=== PATIENT | female | born 1975 | race Caucasian/White ===

== ENCOUNTER → 2016-09-25 | Outpatient (CLI) | payer OTHER ==
[~2016-09-25] MED LIST: ACET50TA PO; GLYB25TA PO; IBUP80TA PO; MACR100C3 PO; MOTR200T44 PO; PRENTAB9 PO; STUACAP PO; TYLE167L PO; VIST25CA PO; [UNRECOGNIZED DRUG - OTHER] PO
== END | disposition home or self-care (01) ==
LOC: M LAB 11:30
PROVIDERS: ATTEND Neurological Surgery
DX: E66.9 Obesity, unspecified (principal)

== ENCOUNTER → 2016-10-22 | Outpatient (CLI) | payer OTHER ==
--- NOTE | 2016-10-22 15:51 | REP ---
CERVICAL SPINE, SEVEN VIEW: HISTORY: Spondylosis. COMPARISON: 12/12/2012. There is no acute fracture or subluxation. The C5-6 intervertebral disc is decreased in height consistent with disc degeneration. Osteophytes are present on C5 and 6. The neural foramina are patent. IMPRESSION: Degenerative change as described above. Signed by Shadi Montaño MD 10/22/2016 03:52 P
--- NOTE | 2016-10-22 15:53 | REP ---
LUMBAR SPINE, SEVEN VIEWS: HISTORY: Spondylosis. COMPARISON: 07/08/2016. There is no acute fracture or subluxation. The L4-5 intervertebral disc is decreased in height consistent with disc degeneration. Osteophytes are present on L3 and 4. The facet joints are normal in appearance. IMPRESSION: Degenerative change as described above. Signed by Shadi Montaño MD 10/22/2016 04:05 P
== END | disposition home or self-care (01) ==
LOC: M RAD 14:47
PROVIDERS: ATTEND Neurological Surgery
DX: M47.892 Other spondylosis, cervical region (principal); M47.896 Other spondylosis, lumbar region; M50.322 Other cervical disc degeneration at C5-C6 level; M51.36 Other intervertebral disc degeneration, lumbar region

== ENCOUNTER → 2016-12-23 | Outpatient (CLI) | payer OTHER ==
--- NOTE | 2017-01-04 00:57 | ECWPNPC ---
PATIENT NAME: HYUN SOSA : 1975 GENDER: FEMALE VISIT DATE: 12/23/2016 DISCHARGE DATE: 12/23/16 1244 VISIT LOCKED DATE TIME: PHYSICIAN: JANNA JACOBSON RESOURCE: JANNA JACOBSON HISTORY OF PRESENT ILLNESS FALL RISK SCREENINY/O FEMALE REFERRED BY DR. RODRIGUEZ FOR EVALUATION OF CHRONIC LOW BACK PAIN.PAIN BEGAN INTERMITTENT LOW BACK PAIN IN 2013 THAT DEVELOPED INTO MORE CONSTANT PAIN WITH LEFT LATERAL LEG PAIN ONE YEAR LATTER.HAS HAD SEVERE INCREASE IN PAIN AFTER TWISTING ON TOILET 6 MONTHS AGO.RATING PAIN VAS 7/10.PAIN IS AGGREVATED BY WALKING,LIFTING AND SITTING.STATES NOTHING RELIEVES PAIN.DENIES BOWEL OR BLADDER INCONTINENCE.NO RECENT FEVER ILLNESS OR WEIGHT LOSS.HAS ATTENDED PT WITH MINIMAL RELIEF.USING ACETAMINOPHEN IN HIGH DOSES THAT IS NOT HELPING. SCREENING :NO FALLS IN THE PAST YEAR PAIN SCREENING: PATIENT HAS A COMPLAINT OF ACUTE OR CHRONIC PAIN :YES CURRENT MEDICATIONS TAKING TYLENOL ARTHRITIS PAIN 2 TABS ORALLY FOUR TIMES DAILY NEEDED DISCONTINUED AMOXICILLIN 500 MG CAPSULE 2 CAPSULES ORALLY ONCE A DAY (FIRST DOSE GIVEN IN CLINIC 12/15/15) MEDICATION LIST REVIEWED AND RECONCILED WITH THE PATIENT PAST MEDICAL HISTORY ARTHRITIS CHRONIC PAIN FROM NECK TO TAIL BONE ALLERGIES LATEX (FOR ALLERGY USE ONLY): RASH, HIVES: ALLERGY SURGICAL HISTORY DENIES PAST SURGICAL HISTORY FAMILY HISTORY FATHER: 48 YRS, DIAGNOSED WITH HEART DISEASE MOTHER: ALIVE 57 YRS, DIAGNOSED WITH DIABETES, OTHER SIBLINGS: ALIVE, DIAGNOSED WITH HEART DISEASE, OTHER 3 SON(S) , 1 DAUGHTER(S) - HEALTHY. FATHER -MIMOTHER- OSTEO ARTHRITIS, OSTEOPOROSIS, ASHTMA, BETO, H-PYLORIE,MIGRAINES1 BROTHER--LEUKEMIA,HEART PROBLEMS(HAS AICD), 2 BACK [id number] BROTHER--DEAF LEFT EAR, HEART MURMUR. BETO. SOCIAL HISTORY GENERAL: TOBACCO USE ARE YOU A:NONSMOKER ALCOHOL SCREENING POINTS1 INTERPRETATIONNEGATIVE RECREATIONAL DRUG USE DRUG USE?NO CAFFEINE CAFFEINE USE?YES HOW OFTEN AND HOW MUCH? 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 DIET: REGULAR. EXERCISE: STRETCHES BID. MARITAL STATUS: . OTHERS AT HOME: CHILDREN. PETS: NONE. YAZIDISM [id number] ANABAPTISM LANGUAGE LANGUAGES SPOKEN:HUNGARIAN EDUCATION LEVEL OF EDUCATION:FINISHED HIGH SCHOOL SOME COLLEGE LEARNING BARRIERS / SPECIAL NEEDS BARRIERS TO LEARNING?NO HEARING IMPAIRED?NO VISION IMPAIRED?YES :CORRECTIVE LENSES COGNITIVELY IMPAIRED?NO READINESS TO LEARN?YES LEARNING PREFERENCES?YES :DEMONSTRATION/VERBAL INSTRUCTION EMOTIONAL BARRIERS?NO SPECIAL DEVICES?NO RAILROAD TRACK REPAIR SUPERVISOR NEEDED?NO PAIN CLINIC PFS, CLERGY, PUBLIC HEALTH REFERRALS PFS REFERRAL NEEDED?NO CLERGY REFERRAL NEEDED?NO PUBLIC HEALTH REFERRAL NEEDED?NO ADVANCED DIRECTIVES HEALTH CARE PROXY?NO WOULD YOU LIKE MORE INFORMATION?NO DO YOU HAVE A DNR?NO WOULD YOU LIKE MORE INFORMATION?NO LIVING WILL?NO WOULD YOU LIKE MORE INFORMATION?NO POWER OF SKOOG MACHINE OPERATOR?NO WOULD YOU LIKE MORE INFORMATION?NO COHABITATING: EMOTIONAL BY . PLAN OF CARE FOR PAIN CENTER REVIEWED WITH PATIENT AND SHE VERBALIZED UNDERSTANDING. HOSPITALIZATION/MAJOR DIAGNOSTIC PROCEDURE MILD CONCUSSION AGE 10 WHOOPING COUGH AND PNEUMONIA BABY CHILD 1993,1996,2013. 2014 REVIEW OF SYSTEMS CONSTITUTIONAL: RECENT ILLNESS DENIES . ANY CHANGE IN YOUR MEDICAL CONDITION? NO . CHILLS NO . FEVER NO, DENIES . WEIGHT LOSS DENIES . INFECTION: DO YOU HAVE NEW INFECTIONS? NO . DO YOU HAVE HISTORY OF MRSA? NO . MUSCULOSKELETAL: ANY NEW PATTERNS OF PAIN OR NUMBNESS? NO . SYTEMIC LUPUS NO . JOINT PAIN DENIES . JOINT STIFFNESS DENIES . GASTROENTEROLOGY: BOWEL INCONTINENCE DENIES . ANY NEW CHANGE IN BOWEL CONTROL? NO . BARRETTS ESOPHAGUS NO . CIRRHOSIS NO . HEPATITIS NO . LIVER FAILURE NO . ACID REFLUX NO . BLOOD IN STOOL DENIES . UNEXPLAINED WEIGHT LOSS NO . GENITOURINARY: ANY NEW CHANGE IN BLADDER CONTROL? NO . IS THERE A CHANCE YOU COULD BE ? NO . HEMATOLOGY/LYMPH: DENIES . BLEEDING DISORDER DENIES . DO YOU TAKE ANY BLOOD THINNERS? (FOR EXAMPLE- COUMADIN, PLAVIX, AGGRENOX, PLATEL, PRADAXA, OR XARELTO) NO . WHEN WAS YOUR LAST DOSE? DATE: TIME: . LOW PLATELET COUNT NO . SICKLE CELL DISEASE NO . VON WILLIEBRANDS NO . FACTOR V LEIDEN NO . THALLASEMIA NO . ANEMIA NO . EASY BRUISING NO . NEUROLOGY: HAVE YOU FALLEN IN THE PAST 6 MONTHS? NO . ANY NEW EXTREMITY NUMBNESS OR WEAKNESS? NO . HEAD INJURY YES, CONCUSSIOON A CHILD . DEMENTIA NO . CEREBRAL PALSY NO . MULTIPLE SCLEROSIS NO . DIZZINESS NO . HEADACHE NO, DENIES . SEIZURES DENIES . STROKES NO . VERTIGO NO . CARDIOLOGY: DO YOU HAVE A PACEMAKER OR DEFIBRILLATOR? NO . ANGINA NO . HEART ATTACK NO . HEART SURGERY NO . CONGESTIVE HEART FAILURE/FLUID OVERLOAD NO . CHEST PAIN NO, DENIES . HIGH BLOOD PRESSURE NO . IRREGULAR HEART BEAT NO . SHORTNESS OF BREATH DENIES . RESPIRATORY: HAVE YOU BEEN SICK IN THE PAST WEEK? NO . FEVER NO . FLU LIKE SYMPTOMS? NO . CPAP NO . BYPAP NO . ASTHMA YES, EXERCISED INDUCED . EMPHYSEMA NO . CHRONIC LUNG DISEASES NO . SHORTNESS OF BREATH ON EXERTION NO . COUGH NO, DENIES . SHORTNESS OF BREATH DENIES . SNORING YES,NEVER BEEN TESTED FOR BETO . INTEGUMENTARY: DO YOU HAVE ANY RASHES OR OPEN SORES? NO . ALLERGIC/IMMUNO: ARE YOU ALLERGIC TO SHELLFISH OR IV DYE? NO . ANY NEW ALLERGIES? NO . PSYCHIATRIC: DO YOU HAVE THOUGHTS OF HURTING YOURSELF OR SOMEONE ELSE? NO . ARE YOU ABUSED, NEGLECTED, OR IN AN UNSAFE ENVIRONMENT? NO . ENDOCRINOLOGY: THYROID DISEASE DENIES . ARE YOU DIABETIC? NO . DIABETES DENIES . THYROID DISORDER NO . OTHER: DO YOU NEED ANY PRESCRIPTIONS? NO . IF YES, PLEASE LIST: ____ . ANY NEW PROBLEMS WITH YOUR MEDICATIONS? NO . WHEN DID YOU LAST EAT? ____ . WHEN DID YOU LAST DRINK? ____ . WHAT DID YOU LAST DRINK? ____ . NAME OF PERSON DRIVING YOU HOME? ____ . DO YOU HAVE ANY OTHER QUESTIONS OR CONCERNS WANTS TO BE ABLE TO MOVE WITHOUT PAIN . HEENT: CHANGE IN VISION DENIES . LOSS OF HEARING DENIES . TROUBLE SWALLOWING DENIES . PSYCHOLOGY: ANXIETY DENIES . DEPRESSION DENIES . UROLOGY: URINARY INCONTINENCE DENIES . BLOOD IN URINE DENIES . REVIEWED BY: PROVIDER: JANNA LOPEZ . VITAL SIGNS WT 208.2 LBS, HT 67 IN, BMI 32.61 INDEX, BP 130/78 MM HG, HR 69 /MIN, RR 20 /MIN, TEMP 99.0 F, OXYGEN SAT % 95%, NA INITIALS AW 1111. EXAMINATION GENERAL EXAMINATION: HEENT:HEAD:, NORMOCEPHALIC, EYES:, EYES NORMAL, NOSE:, NOSE CLEAR, THROAT: NORMAL. LUNGS:LUNG SOUNDS ARE CLEAR. HEART:HEART RATE REGULAR. ABDOMEN:SOFT AND NOT TENDER, NON-DISTENDED. MUSCULOSKELETAL:*. LUMBAR SACRAL SPINEMUSCLE STRENGTH TESTING 5/5 BILATERAL, PALPATION: + FOR PAIN OVER L/S SPINE. + FOR PAIN OVER L/S PARASPINALS. THORACIC SPINENEGATIVE FOR PAIN WITH PALPATION OF THORACIC SPINE. NEGATIVE FOR PAIN WITH PALPATION OF THORACIC PARASPINAL. CERVICALNEGATIVE FOR PAIN WITH PALPATION OF CERVICAL SPINE. NEGATIVE FOR PAIN WITH PALPATION OF CERVICAL PARASPINALS. NEGATIVE FOR PAIN WITH PALPATION OF TRAPEZIUS BILAT. SKIN:NORMAL, NO RASH. NEUROLOGIC EXAM:ALERT AND ORIENTED X 3, DTRS 1-2+ IN ALL 4 EXTREMITIES, DENIES UPPER EXTREMETIES SENSORY LOSS, DENIES LOWER EXTREMETIES SENSORY LOSS. DIAGNOSTIC:MRI L/S [id number] NCS LOWER [id number] L5/S1-RADICULOPATHY.. ASSESSMENTS LUMBOSACRAL RADICULOPATHY - M54.17 (PRIMARY) PROTRUSION OF INTERVERTEBRAL DISC OF LUMBOSACRAL REGION - M51.27 TREATMENT LUMBOSACRAL RADICULOPATHY CAUDAL/LUMBAR EPIDURALJANNA JACOBSON 12/23/2016 12:38:29 PM > L4/5 LESI NOTES: LUMBAR EPIDURAL INJECTION: YOUR EXPERIENCE MATERIAL WAS PRINTED. OTHERS CLINICAL NOTES: ISTOP REGISTRY REVIEWED. PROCEDURE CODES FA211 ESTABILISHED PATIENT [facility] CHARGE DISPOSITION & COMMUNICATION FOLLOW UP 2WK POST (REASON: L4/5 LESI) ELECTRONICALLY SIGNED BY JESSICA BUSH ON 01/03/2017 AT 01:21 PM EDT DISCLAIMER : THIS IS A VISIT SUMMARY EXTRACTED FROM THE [employer] CHART. IT IS NOT A COPY OF THE [employer] PROGRESS NOTE. MTDLove
== END ==
LOC: M PAIN 11:20
PROVIDERS: ATTEND Nurse Practitioner Family
DX: G89.29 Other chronic pain (principal); M54.17 Radiculopathy, lumbosacral region; M51.27 Other intervertebral disc displacement, lumbosacral region; M19.90 Unspecified osteoarthritis, unspecified site; M54.2 Cervicalgia; Z79.899 Other long term (current) drug therapy; Z91.040 Latex allergy status

== ENCOUNTER → 2017-01-12 | Outpatient (REF) | payer OTHER | LOC: M LAB REF 17:00 | PROVIDERS: ATTEND Advanced Practice Midwife | DX: Z12.4 Encounter for screening for malignant neoplasm of cervix (principal) ==

== ENCOUNTER → 2017-01-18 | Outpatient (CLI) | payer OTHER ==
--- NOTE | 2017-01-18 11:11 | REPMRS ---
Patient History The patient states she had a clinical breast exam in January 2017. Family history of colorectal cancer in maternal grandfather at age 60, breast cancer in maternal aunt at age 50 or over, and unknown cancer in brother at age 7. Digital Mammo Screening Bilat: January 18, 2017 - Exam #: [id number] Bilateral CC and MLO view(s) were taken. Technologist: Mona Mccann, Technologist FINDINGS: There are scattered fibroglandular densities. There is no evidence of dominant mass, architectural distortion, or clustered microcalcification typical of malignancy. ASSESSMENT: BI-RADS/ACR category 1 mammogram. Negative. Recommendation Routine screening mammogram of both breasts in 1 year (for women over age 40). This mammogram was interpreted with the aid of an FDA-approved computer-aided dectection system. Electronically Signed By: Ubaldo Schultz MD 01/18/17 1111
== END ==
LOC: M RAD 10:40
PROVIDERS: ATTEND Advanced Practice Midwife
DX: Z12.31 Encounter for screening mammogram for malignant neoplasm of breast (principal); Z80.0 Family history of malignant neoplasm of digestive organs; Z80.3 Family history of malignant neoplasm of breast

== ENCOUNTER 2017-06-29 01:08 | Emergency (ER) | payer OTHER ==
[~2017-06-29] VITALS: Ht 170.2 cm; Wt 93.6 kg
[~2017-06-29 01:08] MED LIST changes: -MACR100C3 PO; +MACR100C43 PO
[2017-06-29] MEDS ORDERED: BACT800T5 PO (06:08)
[2017-06-29] MEDS ORDERED: PRED20TA PO (06:08)
[2017-06-29 06:28] VITALS: BP 131/78
== END 2017-06-29 06:30 | disposition home or self-care (01) ==
LOC: M ED 01:08
DX: S30.861A Insect bite (nonvenomous) of abdominal wall, initial encounter (principal); X58.XXXA Exposure to other specified factors, initial encounter; Y92.89 Other specified places as the place of occurrence of the external cause; Y93.89 Activity, other specified; Y99.8 Other external cause status; R10.9 Unspecified abdominal pain; J45.909 Unspecified asthma, uncomplicated; I10 Essential (primary) hypertension; Z91.040 Latex allergy status

== ENCOUNTER → 2019-04-18 | Outpatient (CLI) | payer OTHER ==
[~2019-04-18] MED LIST changes: -ACET50TA PO; +BACT800T5 PO; +MAPA500T2 PO; +PRED20TA PO; +[UNRECOGNIZED DRUG - CODE] PO; -[UNRECOGNIZED DRUG - OTHER] PO
--- NOTE | 2019-04-18 16:01 | REP ---
HISTORY: Acute low back pain this morning. COMPARISON: No priors. Five views of the lumbosacral spine show minimal posterior disc space narrowing L3-4 to L5-S1. Vertebral body height and alignment is within normal limits. Minimal anterior lipping seen involving L3 through L5 inclusive. Minimal hypertrophic degenerative facet joint changes are suspected at L5-S1 bilaterally. The pedicles are intact bilaterally. There is no spondylolysis or spondylolisthesis. IMPRESSION: Minimal chronic changes as described above. Electronically Signed by Dustin Starkey DO 04/19/2019 03:23 P
== END ==
LOC: M ADAMS 12:54
PROVIDERS: ATTEND Physician Assistant Medical
DX: M54.5 Low back pain (principal)

== ENCOUNTER → 2019-07-12 | Outpatient (REF) | payer OTHER ==
[2019-07-12 12:55] LABS: BASO # 0.1 10^3/uL (0.0-0.2); BASO % 0.8 % (0.0-1.0); EOS # 0.3 10^3/uL (0.0-0.5); EOS % 3.9 % (0.0-3.0); HEMATOCRIT 37.8 % (36.0-47.0); HEMOGLOBIN 12.1 g/dl (12.0-15.5); LYMPH # 1.9 10^3/uL (1.5-5.0); MEAN CORPUSCULAR HEMOGLOBIN 30.3 pg (27.0-33.0); MEAN CORPUSCULAR VOLUME 94.7 fl (80.0-96.0); MONO # 0.4 10^3/uL (0.0-0.8); MONO % 6.6 % (0.0-5.0); NEUTROPHILS # 3.8 10^3/uL (1.5-8.5); NEUTROPHILS % 59.2 % (36.0-66.0); PLATELET COUNT, AUTOMATED 411 10^3/uL (150-450); RED BLOOD COUNT 3.99 10^6/uL (4.00-5.40); WHITE BLOOD COUNT 6.4 10^3/uL (4.0-10.0)
[2019-07-12 13:10] LABS: ALBUMIN 3.6 GM/DL (3.2-5.2); ALT/SGPT 45 U/L (12-78); BILIRUBIN,TOTAL 0.9 MG/DL (0.2-1.0); BLOOD UREA NITROGEN 15 MG/DL (7-18); CARBON DIOXIDE LEVEL 32 MEQ/L (21-32); CHLORIDE LEVEL 107 MEQ/L (98-107); CHOLESTEROL LEVEL 161 MG/DL (<200); CHOLESTEROL RISK RATIO 4.236 (<5); CREATININE FOR GFR 0.66 MG/DL (0.55-1.30); FREE T4 1.01 NG/DL (0.76-1.46); GLOMERULAR FILTRATION RATE > 60.0 (>58); GLUCOSE, FASTING 97 MG/DL (70-100); HDL CHOLESTEROL 38 MG/DL (>40); LDL CHOLESTEROL 88 MG/DL (<100); NON-HDL-C 123 MG/DL; POTASSIUM SERUM 4.3 MEQ/L (3.5-5.1); SODIUM LEVEL 142 MEQ/L (136-145); TRIGLYCERIDES LEVEL 173 MG/DL (<150)
== END ==
LOC: M SFHCADAM 10:16
PROVIDERS: ATTEND Family Medicine
DX: Z00.00 Encounter for general adult medical examination without abnormal findings (principal)

== ENCOUNTER → 2019-07-27 | Outpatient (REF) | payer OTHER ==
[2019-07-27 13:20] LABS: HCG, SERUM QUALITATIVE NEGATIVE (NEGATIVE)
== END ==
LOC: M SFHCADAM 09:51
PROVIDERS: ATTEND Family Medicine
DX: Z71.1 Person with feared health complaint in whom no diagnosis is made (principal)

== ENCOUNTER → 2019-07-31 | Outpatient (CLI) | payer OTHER ==
--- NOTE | 2019-08-14 04:21 | ECWPNPC ---
PATIENT NAME: HYUN SOSA : 1975 GENDER: FEMALE VISIT DATE: 07/31/2019 DISCHARGE DATE: 07/31/19 1514 VISIT LOCKED DATE TIME: PHYSICIAN: JANNA JACOBSON RESOURCE: JANNA JACOBSON REASON FOR APPOINTMENT 1. LOW BACK HISTORY OF PRESENT ILLNESS HISTORY OF PRESENT ILLNESS: 43 Y/O FEMALE REFERRED BY [facility] FOR EVALUATION OF LOW BACK PAIN WITH RADIATION INTO GROIN AND ANTERIOR THIGHS.LONG HISTORY OF LBP WITH EPISODES OF EXACERBATIONS.STATES THAT SHE HAD SEVERE AGGREVATION IN LBP AND HEARING A POP AFTER A QUICK TWISTING,JARRING MOTION IN APRIL.SHE HAS BEEN UNABE TO WORK SINCE THEN.RATING PAIN VAS 7/10.DESCRIBES NUMBNESS AND TINGLING PAIN IN HER GROIN AND THIGHS.CURRENTL USING NAPROXEN AND TIZANIDINE AND ATTENDING PT WITH MINIMAL IMPROVEMENT SO SHE WAS REFERRED HERE TO CONSIDER INJECTION THERAPY. PAIN THE PATIENT DESCRIBES THE PAIN... FALL RISK SCREENING: SCREENING :NO FALLS REPORTED IN THE LAST YEAR CURRENT MEDICATIONS TAKING TIZANIDINE HCL 4 MG CAPSULE TAKE ONE CAPSULE BY MOUTH EVERY 8 HOURS NEEDED MAXIMUM DAILY DOSE 4 TABLETS ORAL TAKING NAPROXEN 375 MG TABLET TAKE ONE TABLET BY MOUTH TWICE A DAY AFTER MEALS ORAL DISCONTINUED TYLENOL ARTHRITIS PAIN 2 TABS ORALLY FOUR TIMES DAILY NEEDED DISCONTINUED MULTIVITAMIN ADULT - TABLET 1 TAB ORALLY DAILY PAST MEDICAL HISTORY ARTHRITIS CHRONIC PAIN FROM NECK TO TAIL BONE ALLERGIES LATEX (FOR ALLERGY USE ONLY): RASH, HIVES - ALLERGY SURGICAL HISTORY DENIES PAST SURGICAL HISTORY FAMILY HISTORY FATHER: 49 YRS, [place], DIAGNOSED WITH UNSPECIFIED HEART DISEASE MOTHER: ALIVE 57 YRS, FIBROMYALGIA, OSTEOARTHRITIS, OSTEOPOROSIS, DEPRESSION, ASTHMA, BETO, MIGRAINES, DIABETES, OTHER SPECIFIED CONDITIONS INFLUENCING HEALTH STATUS SIBLINGS: ALIVE, ONE BROTHER WITH LEUKEMIA, CHF WITH DEFIBRILLATOR; ANOTHER BROTHER WITH HEART MURMUR AND BETO, UNSPECIFIED HEART DISEASE, OTHER MALIGNANT NEOPLASM OF UNSPECIFIED SITE, OTHER SPECIFIED CONDITIONS INFLUENCING HEALTH STATUS 3 SON(S) , 1 DAUGHTER(S) - HEALTHY. SOCIAL HISTORY GENERAL: TOBACCO USE ARE YOU A:NONSMOKER HIV / HEP-C SCREENING HIV TEST OFFERED TO PATIENT:YES DATE OFFERED:07/11/2019 TEST ACCEPTED:NO HEP-C TEST OFFERED TO PATIENT:NO REASON:PATIENT DECLINED BROCHURE PROVIDED TO PATIENTNO OTHERS AT HOME: , CHILDREN, MIL, GRANDPARENTS; 3 CATS. EDUCATION LEVEL OF EDUCATION:FINISHED HIGH SCHOOL SOME COLLEGE DIET: REGULAR. LANGUAGE LANGUAGES SPOKEN:SWEDISH DOMESTIC VIOLENCE DO YOU FEEL SAFE IN YOUR ENVIRONMENT?YES RECREATIONAL DRUG USE DRUG USE?NO EXERCISE: STRETCHES BID. LEARNING BARRIERS / SPECIAL NEEDS BARRIERS TO LEARNING?NO HEARING IMPAIRED?NO VISION IMPAIRED?YES COGNITIVELY IMPAIRED?NO :CORRECTIVE LENSES READINESS TO LEARN?YES LEARNING PREFERENCES?YES :DEMONSTRATION/VERBAL INSTRUCTION EMOTIONAL BARRIERS?NO SPECIAL DEVICES?NO MANAGER HEART FAILURE NEEDED?NO PAIN CLINIC PFS, CLERGY, PUBLIC HEALTH REFERRALS PFS REFERRAL NEEDED?NO CLERGY REFERRAL NEEDED?NO PUBLIC HEALTH REFERRAL NEEDED?NO HAS THE PATIENT BEEN EDUCATED REGARDING HIS/HER PLAN OF CARE?YES HAS THE PATIENT BEEN EDUCATED REGARDING PAIN, THE RISK FOR PAIN, THE IMPORTANCE OF EFFECTIVE PAIN MANAGEMENT, AND THE PAIN ASSESSMENT PROCESS?YES LATEX QUESTIONNAIRE LATEX ALLERGY : HAVE YOU EVER DEVELOPED ANY TYPE OF REACTION AFTER HANDLING LATEX PRODUCTS SUCH RUBBER GLOVES, CONDOMS, DIAPHRAGMS, BALLOONS, SOCKS, OR UNDERWEAR?YES LATEX ALLERGY : HAVE YOU EVER DEVELOPED ANY TYPE OF REACTION DURING OR AFTER DENTAL APPOINTMENT, VAGINAL/RECTAL EXAMINATION, SURGICAL PROCEDURE, OR ANY OTHER EXPOSURE?YES - PLEASE INDICATE :RUBBER GLOVES - PLEASE INDICATE :SURGICAL PROCEDURE DATE ASKED : 07/11/2019 LATEX RISK : HAVE YOU EVER HAD ANY DIFFICULTY BREATHING OR HIVES AFTER EATING OR HANDLING ANY FRUITS, OR VEGETABLES; SUCH KIWI, BANANAS, STONE FRUITS, OR CHESTNUTSNO LATEX RISK : DO YOU HAVE A PREVIOUS PERSONAL HISTORY OF MORE THAN NINE SURGERIES, SPINA BIFIDA, OR REPEATED CATHERIZATIONS? NO LATEX RISK : ARE YOU FREQUENTLY EXPOSED TO LATEX PRODUCTS IN YOUR OCCUPATION?NO CAFFEINE CAFFEINE USE?YES HOW OFTEN AND HOW MUCH? 3 CUPS COFFEE, 2 CUPS TEA/DAY ADVANCE DIRECTIVE HEALTH CARE PROXY? NO, WOULD YOU LIKE MORE INFORMATION? NO, DO YOU HAVE A DNR? NO, WOULD YOU LIKE MORE INFORMATION? NO, LIVING WILL? NO, WOULD YOU LIKE MORE INFORMATION? NO, POWER OF SUPERVISOR TELLERS? NO, WOULD YOU LIKE MORE INFORMATION? NO. RESTORATIONISM [id number] PRESYBETERIAN MARITAL STATUS: . 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 SEXUAL HX HAD SEX IN THE LAST 12 MONTHS (VAGINAL, ORAL, OR ANAL)?YES WITHMEN ONLY HAVE YOU EVER HAD AN STD?NO SHE ENJOYS HIKING AND DOING CRAFTS WITH THE CHILDREN. HOSPITALIZATION/MAJOR DIAGNOSTIC PROCEDURE WHOOPING COUGH AND PNEUMONIA BABY MILD CONCUSSION AGE 10 CHILD 1993, 1996, 2013, 2014 REVIEW OF SYSTEMS REVIEWED BY: PROVIDER: JANNA LOPEZ . CONSTITUTIONAL: ANY CHANGE IN YOUR MEDICAL CONDITION? NO . CHILLS NO . FEVER NO . INFECTION: DO YOU HAVE NEW INFECTIONS? NO . DO YOU HAVE HISTORY OF MRSA? NO . MUSCULOSKELETAL: ANY NEW PATTERNS OF PAIN OR NUMBNESS? NO . GASTROENTEROLOGY: ANY NEW CHANGE IN BOWEL CONTROL? NO . GENITOURINARY: ANY NEW CHANGE IN BLADDER CONTROL? NO . IS THERE A CHANCE YOU COULD BE ? NO . HEMATOLOGY/LYMPH: DO YOU TAKE ANY BLOOD THINNERS? (FOR EXAMPLE- COUMADIN, PLAVIX, AGGRENOX, PLATEL, PRADAXA, OR XARELTO) NO . WHEN WAS YOUR LAST DOSE? DATE: TIME: . NEUROLOGY: HAVE YOU FALLEN IN THE PAST 12 MONTHS? NO . ANY NEW EXTREMITY NUMBNESS OR WEAKNESS? NO . CARDIOLOGY: DO YOU HAVE A PACEMAKER OR DEFIBRILLATOR? NO . RESPIRATORY: HAVE YOU BEEN SICK IN THE PAST WEEK? NO . FEVER NO . FLU LIKE SYMPTOMS? NO . COUGH NO . INTEGUMENTARY: DO YOU HAVE ANY RASHES OR OPEN SORES? NO . ALLERGIC/IMMUNO: ARE YOU ALLERGIC TO IV DYE? NO . ANY NEW ALLERGIES? NO . PSYCHIATRIC: DO YOU HAVE THOUGHTS OF HURTING YOURSELF OR SOMEONE ELSE? NO . ARE YOU ABUSED, NEGLECTED, OR IN AN UNSAFE ENVIRONMENT? NO . ENDOCRINOLOGY: ARE YOU DIABETIC? NO . OTHER: DO YOU NEED ANY PRESCRIPTIONS? NO . IF YES, PLEASE LIST: ____ . ANY NEW PROBLEMS WITH YOUR MEDICATIONS? YES, THEY DON'T WORK . WHEN DID YOU LAST EAT? ____ . WHEN DID YOU LAST DRINK? ____ . WHAT DID YOU LAST DRINK? ____ . NAME OF PERSON DRIVING YOU HOME? ____ . DO YOU HAVE ANY OTHER QUESTIONS OR CONCERNS FLU VACCINE RECEIVED 07/11/19. WANT TO RETURN BACK TO WORK, HOPING TO GET BETTER . VITAL SIGNS WT 221.8 LBS, HT 67 IN, BMI 34.73 INDEX, BP 141/73 MM HG, HR 101 /MIN, RR 18 /MIN, TEMP 97.4 F, OXYGEN SAT % 99%, NA INITIALS AW 1418, REVIEWED BY: EM. EXAMINATION GENERAL EXAMINATION: GENERAL AWAKE,ALERT ,PLEASANT . PSYCH AFFECT NORMAL . LUNGS: LUNG JAY ARE CLEAR TO AUSCULTATION BILATERALLY. GOOD MOVEMENT OF AIR . HEART: S1, S2 IN A REGULAR RATE AND RHYTHM. NO SIGNIFICANT MURMURS, RUBS OR GALLOPS NOTED . MUSCULOSKELETAL:SLIGHT WEAKNESS OVER RIGHT LEG. FOR BILAT. SIJ PALPATION: + FOR PAIN OVER L/S SPINE. + FOR PAIN OVER L/S PARASPINALS. NEUROLOGIC EXAM: NORMAL SENSATION LIGHT TOUCH BILAT. LOWER EXTREMITIES.DTR 2/4 BILAT.. DIAGNOSTIC TESTS REVIEWED MRI L/S SPINE-06/05/19. ASSESSMENTS LUMBOSACRAL RADICULOPATHY - M54.17 (PRIMARY) PROTRUSION OF INTERVERTEBRAL DISC OF LUMBOSACRAL REGION - M51.27 TREATMENT OTHERS NOTES: L3/4 LESI,LUMBAR EPIDURAL STEROID INJECTION MATERIAL WAS PUBLISHED TO [employer]. PROCEDURE CODES FA211 ESTABILISHED PATIENT [facility] FAC[facility] CHARGE DISPOSITION & COMMUNICATION FOLLOW UP POST (REASON: L3/4 LESI) ELECTRONICALLY SIGNED BY JESSICA VERDUGO ON 08/13/2019 AT 02:38 PM EST DISCLAIMER : THIS IS A VISIT SUMMARY EXTRACTED FROM THE [employer] CHART. IT IS NOT A COPY OF THE [employer] PROGRESS NOTE. RADHA
== END ==
LOC: M PAIN 14:00
PROVIDERS: ATTEND Nurse Practitioner Family
DX: M54.17 Radiculopathy, lumbosacral region (principal); M51.27 Other intervertebral disc displacement, lumbosacral region; Z79.899 Other long term (current) drug therapy; Z91.040 Latex allergy status

== ENCOUNTER → 2019-09-20 | Outpatient (CLI) | payer OTHER ==
[~2019-09-20] MED LIST changes: +FAMO1TAB11 PO; +PARO20TA3 PO; +TIZA4CAP PO
== END ==
LOC: M PAIN 09:30
PROVIDERS: ATTEND Anesthesiology
DX: Z53.20 Procedure and treatment not carried out because of patient's decision for unspecified reasons (principal)

== ENCOUNTER 2019-09-27 22:26 | Emergency (ER) | payer OTHER ==
[~2019-09-27] VITALS: Ht 170.2 cm; Wt 93.2 kg
[~2019-09-27 22:26] MED LIST changes: -FAMO1TAB11 PO; -PARO20TA3 PO; -TIZA4CAP PO
[2019-09-27] MEDS ORDERED: PARO20TA3 PO (22:42)
[2019-09-27] MEDS ORDERED: TIZA4CAP PO (22:42)
[2019-09-27] MEDS ORDERED: FAMO1TAB11 PO (22:42)
[2019-09-27] MEDS ORDERED: GI COCKTAIL 50ML BTL(HYOSCYAMINE/MAALOX/LIDOCAINE VISCOUS)(1:3:1) PO ONE (23:00)
[2019-09-27 23:25] LABS: BASO # 0.1 10^3/uL (0.0-0.2); BASO % 0.7 % (0.0-1.0); EOS # 0.3 10^3/uL (0.0-0.5); EOS % 4.2 % (0.0-3.0); HEMATOCRIT 35.4 % (36.0-47.0); HEMOGLOBIN 11.4 g/dl (12.0-15.5); LYMPH # 2.1 10^3/uL (1.5-5.0); LYMPH % 31.2 % (24.0-44.0); MEAN CORPUSCULAR HEMOGLOBIN 29.7 pg (27.0-33.0); MEAN CORPUSCULAR HGB CONC 32.2 g/dl (32.0-36.5); MEAN CORPUSCULAR VOLUME 92.2 fl (80.0-96.0); MONO # 0.5 10^3/uL (0.0-0.8); MONO % 7.8 % (0.0-5.0); NEUTROPHILS # 3.7 10^3/uL (1.5-8.5); NEUTROPHILS % 55.7 % (36.0-66.0); PLATELET COUNT, AUTOMATED 328 10^3/uL (150-450); RED BLOOD COUNT 3.84 10^6/uL (4.00-5.40); WHITE BLOOD COUNT 6.7 10^3/uL (4.0-10.0)
[2019-09-27 23:41] LABS: INR 1.07; PROTHROMBIN TIME 13.6 SECONDS (11.8-14.0)
[2019-09-27 23:42] LABS: PARTIAL THROMBOPLASTIN TIME 28.8 SECONDS (25.0-38.4)
[2019-09-27 23:57] LABS: HCG, SERUM QUALITATIVE NEGATIVE (NEGATIVE)
[2019-09-28 00:02] LABS: ALBUMIN 3.1 GM/DL (3.2-5.2); ALT/SGPT 33 U/L (12-78); BILIRUBIN,DIRECT < 0.1 MG/DL (0.0-0.2); BILIRUBIN,TOTAL 0.3 MG/DL (0.2-1.0); BLOOD UREA NITROGEN 10 MG/DL (7-18); CALCIUM LEVEL 7.9 MG/DL (8.5-10.1); CARBON DIOXIDE LEVEL 28 MEQ/L (21-32); CHLORIDE LEVEL 108 MEQ/L (98-107); CK-MB VALUE MASS < 1.0 NG/ML (<3.6); CPK CREATINE PHOSPHOKINASE 94 U/L (26-192); CREATININE FOR GFR 0.64 MG/DL (0.55-1.30); GLOMERULAR FILTRATION RATE > 60.0 (>58); GLUCOSE, FASTING 166 MG/DL (70-100); LIPASE 198 U/L (73-393); MB/CK RELATIVE INDEX 1.06 (< OR =4); POTASSIUM SERUM 3.8 MEQ/L (3.5-5.1); SODIUM LEVEL 142 MEQ/L (136-145); TOTAL PROTEIN 6.2 GM/DL (6.4-8.2); TROPONIN I 0.02 NG/ML (< 0.10)
[2019-09-28] MEDS ORDERED: ISOVUE-370 76% 100ML VIAL (Q9967) As Ordered ONE (00:30)
--- NOTE | 2019-09-28 01:04 | REP ---
Clinical: Chest pain . Comparison: None Findings: The mediastinum and cardiac silhouette are stable and within normal limits for portable technique. The lung thompson are clear without acute consolidation, effusion, or pneumothorax. Skeletal structures are intact. Impression: No acute cardiopulmonary process appreciated. Electronically Signed by Will Zheng MD 09/28/2019 12:57 A
--- NOTE | 2019-09-28 01:33 | REPVR ---
PROCEDURE INFORMATION: Exam: CT Angiography Chest With Contrast Exam date and time: 09/28/2019 12:23 AM Age: 43 years old Clinical indication: Chest pain; Type not specified TECHNIQUE: Imaging protocol: Computed tomographic angiography of the chest with intravenous contrast. 3D rendering: MIP and/or 3D reconstructed images were created by the technologist. Radiation optimization: All CT scans at this facility use at least one of these dose optimization techniques: automated exposure control; mA and/or kV adjustment per patient size (includes targeted exams where dose is matched to clinical indication); or iterative reconstruction. Contrast material: ISO; Contrast volume: 75 ml; Contrast route: AC; COMPARISON: CR PORTABLE CHEST X-RAY 09/27/2019 11:49 PM FINDINGS: Pulmonary arteries: The main pulmonary artery measures 23 mm. No pulmonary embolism is identified. Aorta: The ascending thoracic aorta measures 28 mm. Lungs: Unremarkable. No consolidation. No masses. Pleural space: Unremarkable. No pneumothorax. No pleural effusion. Heart: The left atrium measures 3.5 cm in its AP dimension. Lymph nodes: Unremarkable. No enlarged lymph nodes. Bones/joints: Unremarkable. No acute fracture. Soft tissues: Unremarkable. IMPRESSION: Negative CTA chest. No pulmonary embolism is identified. Electronically signed by: Gurvinder Gonzalez On 09/28/2019 01:32:31 AM
[2019-09-28 04:00] LABS: CK-MB VALUE MASS < 1.0 NG/ML (<3.6); CPK CREATINE PHOSPHOKINASE 83 U/L (26-192); TROPONIN I < 0.02 NG/ML (< 0.10)
[2019-09-28 04:30] VITALS: BP 142/65
--- NOTE | 2019-09-28 20:24 | ECGEPIP ---
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
--- NOTE | 2019-09-28 20:26 | ECGEPIP ---
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
== END 2019-09-28 04:51 | disposition home or self-care (01) ==
LOC: M ED 22:26
DX: R07.9 Chest pain, unspecified (principal); M19.90 Unspecified osteoarthritis, unspecified site; Z82.49 Family history of ischemic heart disease and other diseases of the circulatory system; Z91.040 Latex allergy status; Z79.899 Other long term (current) drug therapy; Z95.811 Presence of heart assist device; Z87.59 Personal history of other complications of pregnancy, childbirth and the puerperium
CPT/HCPCS: 71045; 71275; 80048; 80076; 82550; 82553; 83690; 84443; 84484; 84703; 85025; 85610; 85730; 93005; 93041; 94760; 99285; Q9967

== ENCOUNTER → 2019-10-26 | Outpatient (CLI) | payer OTHER ==
[~2019-10-26] MED LIST changes: +FAMO1TAB11 PO; +PARO20TA3 PO; +TIZA4CAP PO
--- NOTE | 2019-11-14 06:18 | ECWPNPC ---
PATIENT NAME: HYUN SOSA : 1975 GENDER: FEMALE VISIT DATE: 10/26/2019 DISCHARGE DATE: 10/26/19 1050 VISIT LOCKED DATE TIME: PHYSICIAN: JANNA JACOBSON RESOURCE: JANNA JACOBSON REASON FOR APPOINTMENT 1. REVIEW NEW DIAGNOSIS HISTORY OF PRESENT ILLNESS HISTORY OF PRESENT ILLNESS: HERE FOR FOLLOW-UP OF CHRONIC LOW BACK PAIN WITH BILATERAL LEG RADICULAR SYMPTOMS, LEFT GREATER THAN RIGHT. NERVE CONDUCTION STUDIES SHOWING LEFT L4-5 RADICULOPATHY. INITIAL VISIT WAS IN JULY WHERE WE HAD PLANNED A LUMBAR EPIDURAL STEROID INJECTION. [facility] PRIMARY CARE PROVIDER WHO ORDERED A CARDIAC WORKUP DUE TO PATIENT'S FAMILY HISTORY OF CARDIAC ISSUES UNDER AGE 50. PATIENT HAD A COMPLETE CARDIAC WORKUP, WHICH WAS BASICALLY WITHIN NORMAL LIMITS AFTER NUCLEAR STRESS TESTING, ETC. SLIGHTLY ABNORMAL EKG. DR. THOMAS HAS CLEARED HER [facility] PRIMARY CARE TO MOVE FORWARD WITH INJECTION THERAPY HERE. SHE REQUIRES NO FURTHER FOLLOW-UP. RATING PAIN LEVEL A 7/10 VAS. DENIES CHEST PAINS OR SHORTNESS OF BREATH. PAIN THE PATIENT DESCRIBES THE PAIN... FALL RISK SCREENING: SCREENING :NO FALLS REPORTED IN THE LAST YEAR CURRENT MEDICATIONS TAKING TIZANIDINE HCL 4 MG CAPSULE TAKE ONE CAPSULE BY MOUTH EVERY 8 HOURS NEEDED MAXIMUM DAILY DOSE 4 TABLETS ORAL TAKING PAXIL 20 MG TABLET 1 TABLET IN THE MORNING ORALLY ONCE A DAY NOT-TAKING NAPROXEN 375 MG TABLET TAKE ONE TABLET BY MOUTH TWICE A DAY AFTER MEALS ORAL MEDICATION LIST REVIEWED AND RECONCILED WITH THE PATIENT PAST MEDICAL HISTORY ARTHRITIS CHRONIC PAIN FROM NECK TO TAIL BONE ALLERGIES LATEX (FOR ALLERGY USE ONLY): RASH, HIVES - ALLERGY SURGICAL HISTORY NO SURGICAL HISTORY DOCUMENTED. FAMILY HISTORY FATHER: 49 YRS, OR, DIAGNOSED WITH UNSPECIFIED HEART DISEASE MOTHER: ALIVE 57 YRS, FIBROMYALGIA, OSTEOARTHRITIS, OSTEOPOROSIS, DEPRESSION, ASTHMA, BETO, MIGRAINES, DIABETES, OTHER SPECIFIED CONDITIONS INFLUENCING HEALTH STATUS SIBLINGS: ALIVE, ONE BROTHER WITH LEUKEMIA, CHF WITH DEFIBRILLATOR; ANOTHER BROTHER WITH HEART MURMUR AND BETO, UNSPECIFIED HEART DISEASE, OTHER MALIGNANT NEOPLASM OF UNSPECIFIED SITE, OTHER SPECIFIED CONDITIONS INFLUENCING HEALTH STATUS 3 SON(S) , 1 DAUGHTER(S) - HEALTHY. SOCIAL HISTORY GENERAL: TOBACCO USE ARE YOU A:NONSMOKER HIV / HEP-C SCREENING HIV TEST OFFERED TO PATIENT:YES DATE OFFERED:07/11/2019 TEST ACCEPTED:NO HEP-C TEST OFFERED TO PATIENT:NO REASON:PATIENT DECLINED BROCHURE PROVIDED TO PATIENTNO OTHERS AT HOME: , CHILDREN, MIL, GRANDPARENTS; 3 CATS. EDUCATION LEVEL OF EDUCATION:FINISHED HIGH SCHOOL SOME COLLEGE DIET: REGULAR. LANGUAGE LANGUAGES SPOKEN:[place] RICAN DOMESTIC VIOLENCE DO YOU FEEL SAFE IN YOUR ENVIRONMENT?YES RECREATIONAL DRUG USE DRUG USE?NO EXERCISE: STRETCHES BID. LEARNING BARRIERS / SPECIAL NEEDS BARRIERS TO LEARNING?NO HEARING IMPAIRED?NO VISION IMPAIRED?YES COGNITIVELY IMPAIRED?NO :CORRECTIVE LENSES READINESS TO LEARN?YES LEARNING PREFERENCES?YES :DEMONSTRATION/VERBAL INSTRUCTION EMOTIONAL BARRIERS?NO SPECIAL DEVICES?NO SUPERVISOR HAND WORKERS NEEDED?NO PAIN CLINIC PFS, CLERGY, PUBLIC HEALTH REFERRALS PFS REFERRAL NEEDED?NO CLERGY REFERRAL NEEDED?NO PUBLIC HEALTH REFERRAL NEEDED?NO HAS THE PATIENT BEEN EDUCATED REGARDING HIS/HER PLAN OF CARE?YES HAS THE PATIENT BEEN EDUCATED REGARDING PAIN, THE RISK FOR PAIN, THE IMPORTANCE OF EFFECTIVE PAIN MANAGEMENT, AND THE PAIN ASSESSMENT PROCESS?YES LATEX QUESTIONNAIRE LATEX ALLERGY : HAVE YOU EVER DEVELOPED ANY TYPE OF REACTION AFTER HANDLING LATEX PRODUCTS SUCH RUBBER GLOVES, CONDOMS, DIAPHRAGMS, BALLOONS, SOCKS, OR UNDERWEAR?YES LATEX ALLERGY : HAVE YOU EVER DEVELOPED ANY TYPE OF REACTION DURING OR AFTER DENTAL APPOINTMENT, VAGINAL/RECTAL EXAMINATION, SURGICAL PROCEDURE, OR ANY OTHER EXPOSURE?YES - PLEASE INDICATE :RUBBER GLOVES - PLEASE INDICATE :SURGICAL PROCEDURE DATE ASKED : 07/11/2019 LATEX RISK : HAVE YOU EVER HAD ANY DIFFICULTY BREATHING OR HIVES AFTER EATING OR HANDLING ANY FRUITS, OR VEGETABLES; SUCH KIWI, BANANAS, STONE FRUITS, OR CHESTNUTSNO LATEX RISK : DO YOU HAVE A PREVIOUS PERSONAL HISTORY OF MORE THAN NINE SURGERIES, SPINA BIFIDA, OR REPEATED CATHERIZATIONS? NO LATEX RISK : ARE YOU FREQUENTLY EXPOSED TO LATEX PRODUCTS IN YOUR OCCUPATION?NO CAFFEINE CAFFEINE USE?YES HOW OFTEN AND HOW MUCH? 3 CUPS COFFEE, 2 CUPS TEA/DAY ADVANCE DIRECTIVE HEALTH CARE PROXY? NO, WOULD YOU LIKE MORE INFORMATION? NO, DO YOU HAVE A DNR? NO, WOULD YOU LIKE MORE INFORMATION? NO, LIVING WILL? NO, WOULD YOU LIKE MORE INFORMATION? NO, POWER OF AUTOMOTIVE SOFTWARE ENGINEER? NO, WOULD YOU LIKE MORE INFORMATION? NO. CHRISTIAN [id number] SCIENTOLOGY MARITAL STATUS: . 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 SEXUAL HX HAD SEX IN THE LAST 12 MONTHS (VAGINAL, ORAL, OR ANAL)?YES WITHMEN ONLY HAVE YOU EVER HAD AN STD?NO SHE ENJOYS HIKING AND DOING CRAFTS WITH THE CHILDREN. HOSPITALIZATION/MAJOR DIAGNOSTIC PROCEDURE WHOOPING COUGH AND PNEUMONIA BABY MILD CONCUSSION AGE 10 CHILD 1993, 1996, 2013, 2014 REVIEW OF SYSTEMS REVIEWED BY: PROVIDER: , JANNA LOPEZ . CONSTITUTIONAL: ANY CHANGE IN YOUR MEDICAL CONDITION? NO, NO . CHILLS NO, NO . FEVER NO, NO . INFECTION: DO YOU HAVE NEW INFECTIONS? NO, NO . DO YOU HAVE HISTORY OF MRSA? NO, NO . MUSCULOSKELETAL: ANY NEW PATTERNS OF PAIN OR NUMBNESS? NO, NO . GASTROENTEROLOGY: ANY NEW CHANGE IN BOWEL CONTROL? NO, NO . GENITOURINARY: ANY NEW CHANGE IN BLADDER CONTROL? NO, NO . IS THERE A CHANCE YOU COULD BE ? NO, NO . HEMATOLOGY/LYMPH: DO YOU TAKE ANY BLOOD THINNERS? (FOR EXAMPLE- COUMADIN, PLAVIX, AGGRENOX, PLATEL, PRADAXA, OR XARELTO) NO, NO . WHEN WAS YOUR LAST DOSE? DATE: TIME: , DATE: TIME: . NEUROLOGY: HAVE YOU FALLEN IN THE PAST 12 MONTHS? NO, NO . ANY NEW EXTREMITY NUMBNESS OR WEAKNESS? NO, NO . CARDIOLOGY: DO YOU HAVE A PACEMAKER OR DEFIBRILLATOR? NO, NO . RESPIRATORY: HAVE YOU BEEN SICK IN THE PAST WEEK? NO, NO . FEVER NO, NO . FLU LIKE SYMPTOMS? NO, NO . COUGH NO, NO . INTEGUMENTARY: DO YOU HAVE ANY RASHES OR OPEN SORES? NO, NO . ALLERGIC/IMMUNO: ARE YOU ALLERGIC TO IV DYE? NO, NO . ANY NEW ALLERGIES? NO, NO . PSYCHIATRIC: DO YOU HAVE THOUGHTS OF HURTING YOURSELF OR SOMEONE ELSE? NO, NO . ARE YOU ABUSED, NEGLECTED, OR IN AN UNSAFE ENVIRONMENT? NO, NO . ENDOCRINOLOGY: ARE YOU DIABETIC? NO, NO . OTHER: DO YOU NEED ANY PRESCRIPTIONS? NO, NO . IF YES, PLEASE LIST: ____, ____ . ANY NEW PROBLEMS WITH YOUR MEDICATIONS? NO, NO . WHEN DID YOU LAST EAT? ____, ____ . WHEN DID YOU LAST DRINK? ____, ____ . WHAT DID YOU LAST DRINK? ____, ____ . NAME OF PERSON DRIVING YOU HOME? ____, ____ . DO YOU HAVE ANY OTHER QUESTIONS OR CONCERNS NO, NO . VITAL SIGNS WT 224.4 LBS, HT 67 IN, BMI 35.14 INDEX, BP 140/81 MM HG, HR 93 /MIN, RR 18 /MIN, TEMP 96.5 F, OXYGEN SAT % 97%, SAFE IN ENV? (Y/N) YES, NA INITIALS AW 1006, REVIEWED BY: KG. EXAMINATION GENERAL EXAMINATION: GENERAL AWAKE,ALERT ,PLEASANT . PSYCH AFFECT NORMAL . LUNGS: LUNG JAY ARE CLEAR TO AUSCULTATION BILATERALLY. GOOD MOVEMENT OF AIR . HEART: S1, S2 IN A REGULAR RATE AND RHYTHM. NO SIGNIFICANT MURMURS, RUBS OR GALLOPS NOTED . MUSCULOSKELETAL:SLIGHT WEAKNESS OVER RIGHT LEG. LUMBAR: PALPATION: + FOR PAIN OVER L/S SPINE. + FOR PAIN OVER L/S PARASPINALS. NEUROLOGIC EXAM: NORMAL SENSATION LIGHT TOUCH BILAT. LOWER EXTREMITIES.DTR 2/4 BILAT.. DIAGNOSTIC TESTS REVIEWED MRI L/S SPINE-06/05/19. ASSESSMENTS LUMBOSACRAL RADICULOPATHY - M54.17 (PRIMARY) PROTRUSION OF INTERVERTEBRAL DISC OF LUMBOSACRAL REGION - M51.27 TREATMENT LUMBOSACRAL RADICULOPATHY NOTES: L4-5 LESI. PROCEDURE CODES FA211 ESTABILISHED PATIENT [facility] CHARGE DISPOSITION & COMMUNICATION FOLLOW UP POSTPROCEDURE (REASON: L4-5 LESI) ELECTRONICALLY SIGNED BY JESSICA VERDUGO ON 11/13/2019 AT 12:13 PM EDT DISCLAIMER : THIS IS A VISIT SUMMARY EXTRACTED FROM THE [facility] CHART. IT IS NOT A COPY OF THE [facility] PROGRESS NOTE. RADHA
== END ==
LOC: M PAIN 09:45
PROVIDERS: ATTEND Nurse Practitioner Family
DX: M54.17 Radiculopathy, lumbosacral region (principal); M51.27 Other intervertebral disc displacement, lumbosacral region

== ENCOUNTER → 2019-11-29 | Outpatient (CLI) | payer OTHER ==
[~2019-11-29] MED LIST changes: +AMOXICILLIN 500 MG CAP PO ONE; +CIPR-249 PO; +FLAG500T PO; +ISOVUE-M 300 61% 15ML VIAL (Q9967) As Ordered ONE; +LIDOCAINE 1% SDV INJ 30 ML VIAL As Ordered ONE; +NORCO, ANEXSIA 5/325MG TABLET (HYDROcodone/ACETAMINOPHEN) As Ordered ONE; +diazePAM 5 MG TAB As Ordered ONE; +methylPREDNISolone SUSP 40 MG/ML (DEPO-medrol) VIAL (J1030) As Ordered ONE
--- NOTE | 2019-11-29 13:41 | REP ---
C-ARM VIEW LUMBAR SPINE: CLINICAL HISTORY: Pain. A single C-arm view of the lumbar spine is performed during epidural injection performed by Dr. Parham. Needle is seen at the L4 level. 9 seconds fluoroscopy time utilized. Electronically Signed by Jt Saavedra MD 11/29/2019 04:56 P
--- NOTE | 2019-12-12 03:12 | ECWPNPC ---
PATIENT NAME: HYUN SOSA : 1975 GENDER: FEMALE VISIT DATE: 11/29/2019 DISCHARGE DATE: 11/29/19 1343 VISIT LOCKED DATE TIME: PHYSICIAN: SOFIA JACKSON MD RESOURCE: SOFIA JACKSON MD REASON FOR APPOINTMENT 1. LUMBAR EPIDURAL HISTORY OF PRESENT ILLNESS HISTORY OF PRESENT ILLNESS: PAIN THE PATIENT DESCRIBES THE PAIN... FALL RISK SCREENING: SCREENING :NO FALLS REPORTED IN THE LAST YEAR CURRENT MEDICATIONS TAKING TIZANIDINE HCL 4 MG CAPSULE TAKE ONE CAPSULE BY MOUTH EVERY 8 HOURS NEEDED MAXIMUM DAILY DOSE 4 TABLETS ORAL , NOTES: 11/27/19 TAKING PAXIL 20 MG TABLET 1 TABLET IN THE MORNING ORALLY ONCE A DAY, NOTES: 11/27/19 TAKING AMOXICILLIN 500 MG TABLET 1 TABLET ORALLY THREE TIMES DAILY, NOTES: 11/28/19 1800 NOT-TAKING NAPROXEN 375 MG TABLET TAKE ONE TABLET BY MOUTH TWICE A DAY AFTER MEALS ORAL MEDICATION LIST REVIEWED AND RECONCILED WITH THE PATIENT PAST MEDICAL HISTORY ARTHRITIS CHRONIC PAIN FROM NECK TO TAIL BONE ALLERGIES LATEX (FOR ALLERGY USE ONLY): RASH, HIVES - ALLERGY SURGICAL HISTORY DENIES PAST SURGICAL HISTORY FAMILY HISTORY FATHER: 49 YRS, [place], DIAGNOSED WITH UNSPECIFIED HEART DISEASE MOTHER: ALIVE 57 YRS, FIBROMYALGIA, OSTEOARTHRITIS, OSTEOPOROSIS, DEPRESSION, ASTHMA, BETO, MIGRAINES, DIABETES, OTHER SPECIFIED CONDITIONS INFLUENCING HEALTH STATUS SIBLINGS: ALIVE, ONE BROTHER WITH LEUKEMIA, CHF WITH DEFIBRILLATOR; ANOTHER BROTHER WITH HEART MURMUR AND BETO, UNSPECIFIED HEART DISEASE, OTHER MALIGNANT NEOPLASM OF UNSPECIFIED SITE, OTHER SPECIFIED CONDITIONS INFLUENCING HEALTH STATUS 3 SON(S) , 1 DAUGHTER(S) - HEALTHY. SOCIAL HISTORY GENERAL: TOBACCO USE ARE YOU A:NONSMOKER HIV / HEP-C SCREENING HIV TEST OFFERED TO PATIENT:YES DATE OFFERED:07/11/2019 TEST ACCEPTED:NO HEP-C TEST OFFERED TO PATIENT:NO REASON:PATIENT DECLINED BROCHURE PROVIDED TO PATIENTNO OTHERS AT HOME: , CHILDREN, MIL, GRANDPARENTS; 3 CATS. EDUCATION LEVEL OF EDUCATION:FINISHED HIGH SCHOOL SOME COLLEGE DIET: REGULAR. LANGUAGE LANGUAGES SPOKEN:TURKMEN DOMESTIC VIOLENCE DO YOU FEEL SAFE IN YOUR ENVIRONMENT?YES NEW PATIENT PAIN DIARY FROM 0-10, WHAT LEVEL IS YOUR PAIN TODAY? 11/29/19 7/10 PRECIPITATING FACTORS SITTING, STANDING ALLEVIATING FACTORS STRETCHES, MOIST HEAT WITH APPLE CIDER VINEGAR AND EPSOM SALTS IMPACT ON FUNCTION DIFFICULT TO VACUUM, LIFT GROCERIES WHEN DID YOU LAST EAT? 11/28/19 WHEN DID YOU LAST DRINK? 11/28/19 WHAT DID YOU LAST DRINK? 11/28/19 NAME OF PERSON DRIVING YOU HOME HUMBERTO - SPOUSE IS THERE A CHANCE YOU COULD BE ?NO HAVE YOU BEEN SICK IN THE LAST WEEK (COLD, COUGH, FEVER, FLU, ETC)YES STREP THROAT DO YOU TAKE ANY BLOOD THINNERS?NO DO YOU HAVE ANY RASHES OR OPEN SORES?NO ANY CHANGE IN BOWEL OR BLADDER CONTROL?NO ARE YOU ALLERGIC TO SHELLFISH OR IV DYE?NO ARE YOU DIABETIC?NO DO YOU HAVE A PACEMAKER OR DEFIBRILLATOR?NO ANY NEW PROBLEMS WITH MEDICINES OR NEW ALLERGIESNO ANY NEW PATTERNS OF PAIN OR NUMBNESS?NO ANY CHANGE IN YOUR MEDICAL CONDITION?NO HAVE YOU FALLEN IN THE LAST 6 MONTHS?NO DO YOU USE ANY TYPE OF TOBACCO (SMOKE, SMOKELESS, CHEW, ETC.)NO ARE YOU ABUSED, NEGLECTED, OR IN AN UNSAFE ENVIRONMENT?NO DO YOU HAVE THOUGHTS OF HURTING YOURSELF OR SOMEONE ELSE?NO DO YOU NEED ANY PRESCRIPTIONS?NO DO YOU HAVE ANY OTHER QUESTIONS OR CONCERNS?NO RECREATIONAL DRUG USE DRUG USE?NO EXERCISE: STRETCHES BID. LEARNING BARRIERS / SPECIAL NEEDS BARRIERS TO LEARNING?NO HEARING IMPAIRED?NO VISION IMPAIRED?YES COGNITIVELY IMPAIRED?NO :CORRECTIVE LENSES READINESS TO LEARN?YES LEARNING PREFERENCES?YES :DEMONSTRATION/VERBAL INSTRUCTION EMOTIONAL BARRIERS?NO SPECIAL DEVICES?NO PEN TESTER NEEDED?NO PAIN CLINIC PFS, CLERGY, PUBLIC HEALTH REFERRALS PFS REFERRAL NEEDED?NO CLERGY REFERRAL NEEDED?NO PUBLIC HEALTH REFERRAL NEEDED?NO HAS THE PATIENT BEEN EDUCATED REGARDING HIS/HER PLAN OF CARE?YES HAS THE PATIENT BEEN EDUCATED REGARDING PAIN, THE RISK FOR PAIN, THE IMPORTANCE OF EFFECTIVE PAIN MANAGEMENT, AND THE PAIN ASSESSMENT PROCESS?YES LATEX QUESTIONNAIRE LATEX ALLERGY : HAVE YOU EVER DEVELOPED ANY TYPE OF REACTION AFTER HANDLING LATEX PRODUCTS SUCH RUBBER GLOVES, CONDOMS, DIAPHRAGMS, BALLOONS, SOCKS, OR UNDERWEAR?YES LATEX ALLERGY : HAVE YOU EVER DEVELOPED ANY TYPE OF REACTION DURING OR AFTER DENTAL APPOINTMENT, VAGINAL/RECTAL EXAMINATION, SURGICAL PROCEDURE, OR ANY OTHER EXPOSURE?YES - PLEASE INDICATE :RUBBER GLOVES - PLEASE INDICATE :SURGICAL PROCEDURE DATE ASKED : 07/11/2019 LATEX RISK : HAVE YOU EVER HAD ANY DIFFICULTY BREATHING OR HIVES AFTER EATING OR HANDLING ANY FRUITS, OR VEGETABLES; SUCH KIWI, BANANAS, STONE FRUITS, OR CHESTNUTSNO LATEX RISK : DO YOU HAVE A PREVIOUS PERSONAL HISTORY OF MORE THAN NINE SURGERIES, SPINA BIFIDA, OR REPEATED CATHERIZATIONS? NO LATEX RISK : ARE YOU FREQUENTLY EXPOSED TO LATEX PRODUCTS IN YOUR OCCUPATION?NO CAFFEINE CAFFEINE USE?YES HOW OFTEN AND HOW MUCH? 3 CUPS COFFEE, 2 CUPS TEA/DAY ADVANCE DIRECTIVE HEALTH CARE PROXY? NO, WOULD YOU LIKE MORE INFORMATION? NO, DO YOU HAVE A DNR? NO, WOULD YOU LIKE MORE INFORMATION? NO, LIVING WILL? NO, WOULD YOU LIKE MORE INFORMATION? NO, POWER OF PHOTOENGRAVING MACHINE OPERATOR/TENDER? NO, WOULD YOU LIKE MORE INFORMATION? NO. MOSQUE [id number] ORIENTAL ORTHODOX MARITAL STATUS: . 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 SEXUAL HX HAD SEX IN THE LAST 12 MONTHS (VAGINAL, ORAL, OR ANAL)?YES WITHMEN ONLY HAVE YOU EVER HAD AN STD?NO SHE ENJOYS HIKING AND DOING CRAFTS WITH THE CHILDREN. HOSPITALIZATION/MAJOR DIAGNOSTIC PROCEDURE WHOOPING COUGH AND PNEUMONIA BABY MILD CONCUSSION AGE 10 CHILD 1993, 1996, 2013, 2014 REVIEW OF SYSTEMS REVIEWED BY: PROVIDER: . CONSTITUTIONAL: ANY CHANGE IN YOUR MEDICAL CONDITION? NO . CHILLS NO . FEVER NO . INFECTION: DO YOU HAVE NEW INFECTIONS? YES - STREP THROAT. STATES IS ON DAY 5 OF 5 DAY COURSE OF AMOXICILLIN. . DO YOU HAVE HISTORY OF MRSA? NO . MUSCULOSKELETAL: ANY NEW PATTERNS OF PAIN OR NUMBNESS? NO . GASTROENTEROLOGY: ANY NEW CHANGE IN BOWEL CONTROL? NO . GENITOURINARY: ANY NEW CHANGE IN BLADDER CONTROL? NO . IS THERE A CHANCE YOU COULD BE ? NO . HEMATOLOGY/LYMPH: DO YOU TAKE ANY BLOOD THINNERS? (FOR EXAMPLE- COUMADIN, PLAVIX, AGGRENOX, PLATEL, PRADAXA, OR XARELTO) NO . WHEN WAS YOUR LAST DOSE? DATE: TIME: . NEUROLOGY: HAVE YOU FALLEN IN THE PAST 12 MONTHS? NO . ANY NEW EXTREMITY NUMBNESS OR WEAKNESS? NO . CARDIOLOGY: DO YOU HAVE A PACEMAKER OR DEFIBRILLATOR? NO . RESPIRATORY: HAVE YOU BEEN SICK IN THE PAST WEEK? NO . FEVER NO . FLU LIKE SYMPTOMS? NO . COUGH NO . INTEGUMENTARY: DO YOU HAVE ANY RASHES OR OPEN SORES? NO . ALLERGIC/IMMUNO: ARE YOU ALLERGIC TO IV DYE? NO . ANY NEW ALLERGIES? NO . PSYCHIATRIC: DO YOU HAVE THOUGHTS OF HURTING YOURSELF OR SOMEONE ELSE? NO . ARE YOU ABUSED, NEGLECTED, OR IN AN UNSAFE ENVIRONMENT? NO . ENDOCRINOLOGY: ARE YOU DIABETIC? NO . OTHER: DO YOU NEED ANY PRESCRIPTIONS? NO . IF YES, PLEASE LIST: ____ . ANY NEW PROBLEMS WITH YOUR MEDICATIONS? NO . WHEN DID YOU LAST EAT? 11/28/19 . WHEN DID YOU LAST DRINK? 11/28/19 . NAME OF PERSON DRIVING YOU HOME? HUMBERTO - . DO YOU HAVE ANY OTHER QUESTIONS OR CONCERNS NO . VITAL SIGNS WT 223 LBS, HT 67 IN, BMI 34.92 INDEX, BP 136/88 MM HG, HR 108 /MIN, RR 18 /MIN, TEMP 98.0 F, OXYGEN SAT % 96%, NA INITIALS AW 0952, REVIEWED BY: LS. ASSESSMENTS INTERVERTEBRAL DISC DISORDERS WITH RADICULOPATHY, LUMBAR REGION - M51.16 (PRIMARY) PROCEDURES PRE PROCEDURE DIAGNOSIS LUMBAR DISC DISORDER WITH RADICULOPATHY POST PROCEDURE DIAGNOSIS LUMBAR DISC DISORDER WITH RADICULOPATHY PROCEDURE LUMBAR EPIDURAL STEROID INJECTION UNDER FLUOROSCOPIC GUIDANCE SURGEON DR. SOFIA JACKSON ACID MIXER NONE ANESTHESIA LOCAL PRE PROCEDURE NOTE THE PATIENT HAS A HISTORY OF CHRONIC LOW BACK PAIN. I EVALUATED THE PATIENT AND REVIEWED THE CHART. I WENT OVER THE RISKS, ALTERNATIVES, AND BENEFITS ASSOCIATED WITH THIS PROCEDURE. THE PATIENT WOULD LIKE TO PROCEED AND GIVE CONSENT TO PERFORMED THE PROCEDURE. THE PATIENT DENIES UNEXPLAINABLE WEIGHT LOSS, FEVER, CHILLS, OR NEW CHANGES IN URINARY OR BOWEL CONTROL. DESCRIPTION OF PROCEDURE THE PATIENT WAS BROUGHT TO THE PROCEDURE ROOM AND PLACED IN THE PRONE POSITION. THE LUMBOSACRAL AREA WAS CLEANED WITH BETADINE SOLUTION AND DRAPED ASEPTICALLY. THE PROCEDURE WAS DONE UNDER STERILE CONDITIONS. I CHECKED LATERALITY AND THE LEVEL WHERE THE PROCEDURE WAS GOING TO BE PERFORMED WITH THE PATIENT AND THE SUPPORTING STAFF AT THE MOMENT OF THE TIME OUT IN THE PROCEDURE ROOM. UNDER FLUOROSCOPIC GUIDANCE, THE TARGET POINT WAS SELECTED AT THE INTERLAMINAR LEVEL OF L3-L4. LIDOCAINE WAS USED TO NUMB THE SKIN AND THE SUBCUTANEOUS TISSUE BELOW IT. EPIDURAL TUOHY NEEDLE, 17-GAUGE, WAS ADVANCED UNDER FLUOROSCOPIC GUIDANCE AND FOLLOWING PATIENT FEEDBACK UNTIL THE EPIDURAL SPACE WAS REACHED, 7 CM DEEP INTO THE SKIN BY THE LOSS OF RESISTANCE TECHNIQUE. ISOVUE M DYE 30%, 0.25 ML, WAS INJECTED SHOWING ADEQUATE SPREAD OF THE DYE. THEN, A SOLUTION OF 3 ML OF NORMAL SALINE WITH DEPO-MEDROL 60 MG WAS INJECTED SLOWLY FOLLOWING PATIENT FEEDBACK. THERE WAS NO EVIDENCE OF BLOOD, PARESTHESIA OR CEREBROSPINAL FLUID DURING THE PROCEDURE. THE PATIENT WAS SENT TO THE RECOVERY ROOM. THE PATIENT WAS MOVING THE EXTREMITIES AND DOING WELL. THERE WAS NO COMPLICATION DURING THE PROCEDURE. FLUOROSCOPY TIME WAS 8 SECONDS. POST PROCEDURE NOTE THE PATIENT WILL BE SEEN IN A FOLLOW UP IN THE NEXT FEW WEEKS. I AM LOOKING FOR LONG LASTING PAIN RELIEF FOR THE PATIENT WITH THIS INJECTION. I MAY CONSIDER MORE PO PRE-PROCEDURE MEDICATION FOR THE NEXT PROCEDURE.. INSTRUCTIONS WERE GIVEN, QUESTIONS WERE ANSWERED, AND THE PATIENT EXPRESSED UNDERSTANDING AND AGREES WITH THE PLAN. I, KURT PEÑALOZA, DOCUMENTED THE ABOVE INFORMATION ACTING A SCRIBE FOR DR. JACKSON. I HAVE REVIEWED THE ABOVE DOCUMENT, WRITTEN BY KURT PEÑALOZA SCRIBDaniela AND I VERIFY THAT IT IS ACCURATE. DIAGNOSTIC IMAGING [facility] FLUORO GUIDE SPINE INJECTION (PAIN)[id number] PROCEDURE CODES 83351 LUMBAR/SACRAL W/ IMAGING 6045F RADXPS IN END [id number] PXD DISPOSITION & COMMUNICATION FOLLOW UP 2 WEEKS ELECTRONICALLY SIGNED BY SOFIA JACKSON MD, MD ON 12/11/2019 AT 04:51 PM EDT DISCLAIMER : THIS IS A VISIT SUMMARY EXTRACTED FROM THE [employer] CHART. IT IS NOT A COPY OF THE [employer] PROGRESS NOTE. MTDD
== END ==
LOC: M PAIN 09:45
PROVIDERS: ATTEND Anesthesiology
DX: M51.16 Intervertebral disc disorders with radiculopathy, lumbar region (principal); Z79.2 Long term (current) use of antibiotics; Z79.899 Other long term (current) drug therapy; Z91.040 Latex allergy status
CPT/HCPCS: 62323; J1030; Q9967

== ENCOUNTER 2019-12-04 21:44 | Emergency (ER) | payer OTHER ==
[~2019-12-04] VITALS: Ht 170.2 cm; Wt 102.2 kg
[~2019-12-04 21:44] MED LIST changes: -AMOXICILLIN 500 MG CAP PO ONE; -CIPR-249 PO; -FLAG500T PO; -ISOVUE-M 300 61% 15ML VIAL (Q9967) As Ordered ONE; -LIDOCAINE 1% SDV INJ 30 ML VIAL As Ordered ONE; -NORCO, ANEXSIA 5/325MG TABLET (HYDROcodone/ACETAMINOPHEN) As Ordered ONE; -diazePAM 5 MG TAB As Ordered ONE; -methylPREDNISolone SUSP 40 MG/ML (DEPO-medrol) VIAL (J1030) As Ordered ONE
[2019-12-04 22:09] LABS: URINE PREG TEST NEGATIVE (NEGATIVE)
[2019-12-04 22:13] LABS: APPEARANCE, URINE CLEAR (CLEAR); BACTERIA, URINE AUTO NEGATIVE (NEGATIVE); BILIRUBIN, URINE AUTO NEGATIVE (NEGATIVE); BLOOD, URINE BLOOD 1+ (NEGATIVE); COLOR, URINE STRAW (YELLOW); GLUCOSE, URINE (UA) AUTO 1+ mg/dL (NEGATIVE); KETONE, URINE AUTO NEGATIVE (NEGATIVE); LEUKOCYTE ESTERASE, URINE AUTO NEGATIVE (NEGATIVE); NITRITE, URINE AUTO NEGATIVE (NEGATIVE); PROTEIN, URINE AUTO NEGATIVE (NEGATIVE); RBC, URINE AUTO 0 /HPF (0-3); SPECIFIC GRAVITY URINE AUTO 1.003 (1.002-1.035); SQUAMOUS EPITHELIAL CELL UR AU 2 /HPF (0-6); UROBILINOGEN, URINE AUTO 0.2 mg/dL (0.0-2.0); WBC, URINE AUTO 0 /HPF (0-3)
[2019-12-04] MEDS ORDERED: NS 1,000 ML IV ONE (23:00)
[2019-12-04 23:05] LABS: BASO # 0.1 10^3/uL (0.0-0.2); BASO % 0.3 % (0.0-1.0); EOS # 0.1 10^3/uL (0.0-0.5); EOS % 0.5 % (0.0-3.0); HEMATOCRIT 41.2 % (36.0-47.0); HEMOGLOBIN 13.5 g/dl (12.0-15.5); LYMPH # 2.3 10^3/uL (1.5-5.0); LYMPH % 13.3 % (24.0-44.0); MEAN CORPUSCULAR HEMOGLOBIN 29.7 pg (27.0-33.0); MEAN CORPUSCULAR HGB CONC 32.8 g/dl (32.0-36.5); MEAN CORPUSCULAR VOLUME 90.5 fl (80.0-96.0); MONO % 5.9 % (0.0-5.0); NEUTROPHILS # 13.6 10^3/uL (1.5-8.5); NEUTROPHILS % 79.2 % (36.0-66.0); PLATELET COUNT, AUTOMATED 416 10^3/uL (150-450); RED BLOOD COUNT 4.55 10^6/uL (4.00-5.40); WHITE BLOOD COUNT 17.2 10^3/uL (4.0-10.0)
[2019-12-04] MEDS ORDERED: ISOVUE-370 76% 100ML VIAL (Q9967) As Ordered ONE (23:24)
[2019-12-04 23:27] LABS: ACETONE/KETONE 1.1 MG/DL (<2.81); ALBUMIN 3.8 GM/DL (3.2-5.2); BILIRUBIN,DIRECT 0.1 MG/DL (0.0-0.2); BILIRUBIN,TOTAL 0.6 MG/DL (0.2-1.0); TOTAL PROTEIN 7.9 GM/DL (6.4-8.2)
[2019-12-04] MEDS ORDERED: ONDANSETRON 4MG/2ML VIAL (J2405) IV ONE (23:30)
[2019-12-04] MEDS ORDERED: KETOROLAC 30 MG/ML VIAL (J1885) IV ONE (23:30)
--- NOTE | 2019-12-04 23:54 | REPVR ---
PROCEDURE INFORMATION: Exam: CT Abdomen And Pelvis With Contrast Exam date and time: 12/04/2019 11:17 PM Age: 44 years old Clinical indication: Abdominal pain; Localized; Lower; Additional info: Lower abdominal pain, vomiting TECHNIQUE: Imaging protocol: Computed tomography of the abdomen and pelvis with intravenous contrast. Radiation optimization: All CT scans at this facility use at least one of these dose optimization techniques: automated exposure control; mA and/or kV adjustment per patient size (includes targeted exams where dose is matched to clinical indication); or iterative reconstruction. Contrast material: ISO; Contrast volume: 100 ml; Contrast route: AC; COMPARISON: US OBS FOLL UP OR REPEAT EACH GES 06/10/2015 2:18 PM FINDINGS: Lungs: No suspicious mass or airspace process in the visualized lung bases. Liver: Liver is enlarged and decreased in density suggesting hepatic steatosis. Gallbladder and bile ducts: Gallbladder is present and shows no evidence of gallstone. Pancreas: Pancreas appears normal. No focal mass or peripancreatic inflammation. Spleen: Spleen appears homogeneous without focal mass. Adrenals: Adrenal glands are normal in appearance. Kidneys and ureters: Kidneys appear normal, with no stone, solid mass or hydronephrosis. Stomach and bowel: No evidence of small bowel obstruction. Sigmoid colon wall thickening, adjacent fat stranding and regional diverticula suggests acute diverticulitis without perforation or abscess formation at this point. Appendix: Normal caliber appendix is identified, with no adjacent inflammation. Intraperitoneal space: No pneumoperitoneum. Vasculature: No aortic aneurysm. Main portal and splenic veins enhance normally. Lymph nodes: No enlarged lymph nodes. Bladder: Urinary bladder appears normal. Reproductive: Mild prominence of the uterus. No obvious mass. Bones/joints: Bony structures show no acute fracture or destructive process. Soft tissues: Unremarkable. IMPRESSION: 1. Findings are suggestive of acute sigmoid diverticulitis without evidence of abscess formation or convincing evidence of perforation. 2. Hepatomegaly and hepatic steatosis Electronically signed by: Luis M Graham On 12/04/2019 23:53:51 PM
[2019-12-05] MEDS ORDERED: metroNIDAZOLE (FLAGYL) 500 MG TAB PO ONE
[2019-12-05] MEDS ORDERED: CIPROFLOXACIN 500MG TABLET PO ONE
[2019-12-05] MEDS ORDERED: FLAG500T PO (00:05)
[2019-12-05] MEDS ORDERED: CIPR-249 PO (00:05)
[2019-12-05 00:06] VITALS: BP 143/74
== END 2019-12-05 00:23 | disposition home or self-care (01) ==
LOC: M ED 21:44
DX: K57.30 Diverticulosis of large intestine without perforation or abscess without bleeding (principal); R11.10 Vomiting, unspecified; R00.0 Tachycardia, unspecified; I10 Essential (primary) hypertension; J45.909 Unspecified asthma, uncomplicated; M54.9 Dorsalgia, unspecified; M51.9 Unspecified thoracic, thoracolumbar and lumbosacral intervertebral disc disorder; Z91.040 Latex allergy status; Z79.899 Other long term (current) drug therapy
CPT/HCPCS: 74177; 80047; 80076; 81001; 82010; 83036; 83605; 83690; 84703; 85025; 96374; 96375; 99284; J1885; J2405; Q9967

== ENCOUNTER → 2019-12-14 | Outpatient (CLI) | payer OTHER ==
[~2019-12-14] MED LIST changes: +CIPR-249 PO; +FLAG500T PO
--- NOTE | 2019-12-17 10:30 | ECWPNPC ---
PATIENT NAME: HYUN SOSA : 1975 GENDER: FEMALE VISIT DATE: 12/14/2019 DISCHARGE DATE: 12/14/19 1011 VISIT LOCKED DATE TIME: PHYSICIAN: JANNA JACOBSON RESOURCE: JANNA JACOBSON REASON FOR APPOINTMENT 1. POST STEROID EPIDURAL INJECTIION HISTORY OF PRESENT ILLNESS HISTORY OF PRESENT ILLNESS: PATIENT GIVES PERMISSION FOR TELEMED VISIT TODAY VIA ZOOM. HAD, L3-4 LESI ON 11/29/2019. REPORTING MARKED REDUCTION IN BOTH LOW BACK AND RADICULAR SYMPTOMS POST PROCEDURE. OVER THE PAST 3 DAYS SHE HAS NOTICED AN INCREASE IN HER LOW BACK PAIN AND RIGHT LEG SYMPTOMS, BUT NOT TO THE INTENSITY BEFORE PROCEDURE. RATING PAIN LEVEL A 4/10. DISCUSSED TREATMENT PLAN. PAIN THE PATIENT DESCRIBES THE PAIN... FALL RISK SCREENING: SCREENING :NO FALLS REPORTED IN THE LAST YEAR CURRENT MEDICATIONS TAKING TIZANIDINE HCL 4 MG CAPSULE TAKE ONE CAPSULE BY MOUTH EVERY 8 HOURS NEEDED MAXIMUM DAILY DOSE 4 TABLETS ORAL TAKING CENTRUM SILVER - TABLET DIRECTED ORALLY DAILY NOT-TAKING PAXIL 20 MG TABLET 1 TABLET IN THE MORNING ORALLY ONCE A DAY NOT-TAKING AMOXICILLIN 500 MG TABLET 1 TABLET ORALLY THREE TIMES DAILY NOT-TAKING NAPROXEN 375 MG TABLET TAKE ONE TABLET BY MOUTH TWICE A DAY AFTER MEALS ORAL MEDICATION LIST REVIEWED AND RECONCILED WITH THE PATIENT PAST MEDICAL HISTORY ARTHRITIS CHRONIC PAIN FROM NECK TO TAIL BONE EXERCISE STRESS TEST WITH EKG BORDERLINE FOR ISCHEMIA (09/2019) ECHO SHOWED MILD LEFT ATRIALENLARGEMENT, OTHERWISE NORMAL (10/2019) 30 DAY EVENT MONITOR DID NOT SHOW CORRELATION BETWEEN PALPITATIONS/CHEST DISCOMFORT AND ARRHYTHMIA ALLERGIES LATEX (FOR ALLERGY USE ONLY): RASH, HIVES - ALLERGY SURGICAL HISTORY DENIES PAST SURGICAL HISTORY FAMILY HISTORY FATHER: 49 YRS, [place], DIAGNOSED WITH UNSPECIFIED HEART DISEASE MOTHER: ALIVE 57 YRS, FIBROMYALGIA, OSTEOARTHRITIS, OSTEOPOROSIS, DEPRESSION, ASTHMA, BETO, MIGRAINES, DIABETES, OTHER SPECIFIED CONDITIONS INFLUENCING HEALTH STATUS SIBLINGS: ALIVE, ONE BROTHER WITH LEUKEMIA, CHF WITH DEFIBRILLATOR; ANOTHER BROTHER WITH HEART MURMUR AND BETO, UNSPECIFIED HEART DISEASE, OTHER MALIGNANT NEOPLASM OF UNSPECIFIED SITE, OTHER SPECIFIED CONDITIONS INFLUENCING HEALTH STATUS 3 SON(S) , 1 DAUGHTER(S) - HEALTHY. SOCIAL HISTORY GENERAL: TOBACCO USE ARE YOU A:NONSMOKER HIV / HEP-C SCREENING HIV TEST OFFERED TO PATIENT:YES DATE OFFERED:07/11/2019 TEST ACCEPTED:NO HEP-C TEST OFFERED TO PATIENT:NO REASON:PATIENT DECLINED BROCHURE PROVIDED TO PATIENTNO OTHERS AT HOME: , CHILDREN, MIL, GRANDPARENTS; 3 CATS. EDUCATION LEVEL OF EDUCATION:FINISHED HIGH SCHOOL SOME COLLEGE DIET: REGULAR. LANGUAGE LANGUAGES SPOKEN:CUBAN DOMESTIC VIOLENCE DO YOU FEEL SAFE IN YOUR ENVIRONMENT?YES NEW PATIENT PAIN DIARY TODAY'S VISITNOTES 12/14/2019 PATIENT DESCRIBES PAIN :ACHING, BURNING, HAVE IT ALL THE TIME, SHOOTING PAIN IN LEG COMES AND GOES. FROM 0-10, WHAT LEVEL IS YOUR PAIN TODAY?4 RECREATIONAL DRUG USE DRUG USE?NO EXERCISE: STRETCHES BID. LEARNING BARRIERS / SPECIAL NEEDS BARRIERS TO LEARNING?NO HEARING IMPAIRED?NO VISION IMPAIRED?YES COGNITIVELY IMPAIRED?NO :CORRECTIVE LENSES READINESS TO LEARN?YES LEARNING PREFERENCES?YES :DEMONSTRATION/VERBAL INSTRUCTION EMOTIONAL BARRIERS?NO SPECIAL DEVICES?NO DEVELOPMENT DISABILITY SPECIALIST NEEDED?NO PAIN CLINIC PFS, CLERGY, PUBLIC HEALTH REFERRALS PFS REFERRAL NEEDED?NO CLERGY REFERRAL NEEDED?NO PUBLIC HEALTH REFERRAL NEEDED?NO HAS THE PATIENT BEEN EDUCATED REGARDING HIS/HER PLAN OF CARE?YES HAS THE PATIENT BEEN EDUCATED REGARDING PAIN, THE RISK FOR PAIN, THE IMPORTANCE OF EFFECTIVE PAIN MANAGEMENT, AND THE PAIN ASSESSMENT PROCESS?YES LATEX QUESTIONNAIRE LATEX ALLERGY : HAVE YOU EVER DEVELOPED ANY TYPE OF REACTION AFTER HANDLING LATEX PRODUCTS SUCH RUBBER GLOVES, CONDOMS, DIAPHRAGMS, BALLOONS, SOCKS, OR UNDERWEAR?YES - PLEASE INDICATE :RUBBER GLOVES LATEX ALLERGY : HAVE YOU EVER DEVELOPED ANY TYPE OF REACTION DURING OR AFTER DENTAL APPOINTMENT, VAGINAL/RECTAL EXAMINATION, SURGICAL PROCEDURE, OR ANY OTHER EXPOSURE?YES - PLEASE INDICATE :SURGICAL PROCEDURE LATEX RISK : HAVE YOU EVER HAD ANY DIFFICULTY BREATHING OR HIVES AFTER EATING OR HANDLING ANY FRUITS, OR VEGETABLES; SUCH KIWI, BANANAS, STONE FRUITS, OR CHESTNUTSNO LATEX RISK : DO YOU HAVE A PREVIOUS PERSONAL HISTORY OF MORE THAN NINE SURGERIES, SPINA BIFIDA, OR REPEATED CATHERIZATIONS? NO LATEX RISK : ARE YOU FREQUENTLY EXPOSED TO LATEX PRODUCTS IN YOUR OCCUPATION?NO DATE ASKED : 12/14/2019 CAFFEINE CAFFEINE USE?YES HOW OFTEN AND HOW MUCH? 3 CUPS COFFEE, 2 CUPS TEA/DAY ADVANCE DIRECTIVE ADVANCE DIRECTIVE DISCUSSED WITH PATIENT:YES 12/14/2019 PATIENT HAS NO ADVANCED DIRECTIVES AND DECLINES INFORMATION AT THIS TIME. JS TENRIISM [id number] MU-ISM MARITAL STATUS: . 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 SEXUAL HX HAD SEX IN THE LAST 12 MONTHS (VAGINAL, ORAL, OR ANAL)?YES WITHMEN ONLY HAVE YOU EVER HAD AN STD?NO SHE ENJOYS HIKING AND DOING CRAFTS WITH THE CHILDREN. HOSPITALIZATION/MAJOR DIAGNOSTIC PROCEDURE WHOOPING COUGH AND PNEUMONIA BABY MILD CONCUSSION AGE 10 CHILD 1993, 1996, 2013, 2014 REVIEW OF SYSTEMS REVIEWED BY: PROVIDER: JANNA LOPEZ . CONSTITUTIONAL: ANY CHANGE IN YOUR MEDICAL CONDITION? NO . CHILLS NO . FEVER NO . INFECTION: DO YOU HAVE NEW INFECTIONS? YES, DIVERTICULITIS FLAIR UP - FINISHED ANTIBIOTICS . DO YOU HAVE HISTORY OF MRSA? NO . MUSCULOSKELETAL: ANY NEW PATTERNS OF PAIN OR NUMBNESS? YES, PAIN WORSENING DOWN RIGHT LEG, LEFT LEG PAIN HAS IMPROVED . GASTROENTEROLOGY: ANY NEW CHANGE IN BOWEL CONTROL? NO . GENITOURINARY: ANY NEW CHANGE IN BLADDER CONTROL? NO . IS THERE A CHANCE YOU COULD BE ? NO . HEMATOLOGY/LYMPH: DO YOU TAKE ANY BLOOD THINNERS? (FOR EXAMPLE- COUMADIN, PLAVIX, AGGRENOX, PLATEL, PRADAXA, OR XARELTO) NO . WHEN WAS YOUR LAST DOSE? DATE: TIME: . NEUROLOGY: HAVE YOU FALLEN IN THE PAST 12 MONTHS? NO . ANY NEW EXTREMITY NUMBNESS OR WEAKNESS? NO . CARDIOLOGY: DO YOU HAVE A PACEMAKER OR DEFIBRILLATOR? NO . RESPIRATORY: HAVE YOU BEEN SICK IN THE PAST WEEK? YES, DIVERTICULTIS FLAIR UP . FEVER NO . FLU LIKE SYMPTOMS? NO . COUGH NO . INTEGUMENTARY: DO YOU HAVE ANY RASHES OR OPEN SORES? NO . ALLERGIC/IMMUNO: ARE YOU ALLERGIC TO IV DYE? NO . ANY NEW ALLERGIES? NO . PSYCHIATRIC: DO YOU HAVE THOUGHTS OF HURTING YOURSELF OR SOMEONE ELSE? NO . ARE YOU ABUSED, NEGLECTED, OR IN AN UNSAFE ENVIRONMENT? NO . ENDOCRINOLOGY: ARE YOU DIABETIC? NO . OTHER: DO YOU NEED ANY PRESCRIPTIONS? NO . IF YES, PLEASE LIST: ____ . ANY NEW PROBLEMS WITH YOUR MEDICATIONS? NO . WHEN DID YOU LAST EAT? ____ . WHEN DID YOU LAST DRINK? ____ . WHAT DID YOU LAST DRINK? ____ . NAME OF PERSON DRIVING YOU HOME? ____ . DO YOU HAVE ANY OTHER QUESTIONS OR CONCERNS NO . EXAMINATION GENERAL EXAMINATION: GENERALNO ACUTE DISTRESS, WELL NOURISHED AND HYDRATED. PSYCHAPPROPRIATE MOOD AND AFFECT . FACE:UNREMARKABLE. ASSESSMENTS LUMBOSACRAL RADICULOPATHY - M54.17 (PRIMARY) PROTRUSION OF INTERVERTEBRAL DISC OF LUMBOSACRAL REGION - M51.27 TREATMENT LUMBOSACRAL RADICULOPATHY NOTES: PATIENT WILL BE SEEN IN FOLLOW-UP IN 2 MONTHS TO CONSIDER POSSIBLY REPEATING LESI. APPROXIMATELY 11 MINUTES WAS SPENT IN CONSULTATION DURING ZOOM VISIT TODAY. OTHERS NOTES: VITALS NOT OBTAINED DUE TO VIRTUAL VISIT. DISPOSITION & COMMUNICATION FOLLOW UP 6 WEEKS (REASON: LOW BACK PAIN, LUMBAR RADICULOPATHY) ELECTRONICALLY SIGNED BY JESSICA VERDUGO ON 12/14/2019 AT 10:05 AM EDT DISCLAIMER : THIS IS A VISIT SUMMARY EXTRACTED FROM THE [employer] CHART. IT IS NOT A COPY OF THE [employer] PROGRESS NOTE. RADHA
== END ==
LOC: M PAIN 09:30
PROVIDERS: ATTEND Nurse Practitioner Family
DX: M54.17 Radiculopathy, lumbosacral region (principal); M51.27 Other intervertebral disc displacement, lumbosacral region

== ENCOUNTER → 2020-02-04 | Outpatient (CLI) | payer OTHER ==
--- NOTE | 2020-02-06 02:57 | ECWPNPC ---
PATIENT NAME: HYUN SOSA : 1975 GENDER: FEMALE VISIT DATE: 02/04/2020 DISCHARGE DATE: 02/04/20 1246 VISIT LOCKED DATE TIME: PHYSICIAN: JANNA JACOBSON RESOURCE: JANNA JACOBSON REASON FOR APPOINTMENT 1. LOW BACK, LUMBAR RADICULOPATHY; [phone] HISTORY OF PRESENT ILLNESS GENERAL: PATIENT IS AGREEABLE TO TELEMED VISIT VIA ZOOM. THIS IS A ROUTINE FOLLOW-UP OF CHRONIC LOW BACK PAIN WITH LOWER EXTREMITY RADICULAR SYMPTOMS. CONTINUES TO BENEFIT FROM LESI DONE IN NOVEMBER. PAIN LEVEL AT ITS PEAK IS 5/10 VAS. SHE FEELS PAIN IS GRADUALLY RETURNING. REVIEWED MRI OF THE LS-SPINE. DISCUSSED TREATMENT OPTIONS. -. FALL RISK SCREENING: SCREENING :NO FALLS REPORTED IN THE LAST YEAR PAIN SCREENING: PATIENT HAS A COMPLAINT OF ACUTE OR CHRONIC PAIN :YES LOCATION OF PAIN:LOW BACK, LEG(S) INTENSITY OF PAIN (SCALE OF 1 TO 10):5 AVERAGE 3 WHAT DOES YOUR PAIN FEEL LIKE:ACHING, CONTINOUS, SHARP, TENDER, SORE, SHOOTING, OTHER "ANNOYING" SHARP WHEN SHE MOVES JUST RIGHT DURATION:CONTINOUS, CONSTANT PAIN IS INCREASED BY: STANDING TOO LONG, LIFTING, WEIGHT SHIFT PAIN IS DECREASED BY: REST, HOT SHOWER OR BATH NURSING NOTE: -. PAIN CENTER INTAKE QUESTIONS: DO YOU HAVE A HISTORY OF MRSA? :NO DO YOU TAKE A BLOOD THINNERS? :NO DO YOU HAVE ANY BLEEDING DISORDERS? :NO ANY NEW NUMBNESS OR WEAKNESS IN YOUR LEGS OR ARMS? :NO ANY PACEMAKER,DEFIBRILLATOR, OR DORSAL COLUMN STIMULATOR? :NO DO YOU HAVE ANY RASHES OR OPEN SORES? :NO ARE YOU ALLERGIC TO IV DYE? :NO ARE YOU DIABETIC? :NO ANY NEW PROBLEMS WITH YOUR MEDICATIONS? :NO HAVE YOU RECEIVED A VACCINE IN THE PAST 30 DAYS? :NO DO YOU PLAN TO RECEIVE A VACCINE IN THE NEXT 21 DAYS? :NO DO YOU NEED ANY PRESCRIPTION? :NO DO YOU TAKE ANY IMMUNOSUPPRESSIVE MEDICATIONS? :NO CURRENT MEDICATIONS TAKING TIZANIDINE HCL 4 MG CAPSULE TAKE ONE CAPSULE BY MOUTH EVERY 8 HOURS NEEDED MAXIMUM DAILY DOSE 4 TABLETS ORAL TAKING CENTRUM SILVER - TABLET DIRECTED ORALLY DAILY NOT-TAKING PAXIL 20 MG TABLET 1 TABLET IN THE MORNING ORALLY ONCE A DAY NOT-TAKING AMOXICILLIN 500 MG TABLET 1 TABLET ORALLY THREE TIMES DAILY NOT-TAKING NAPROXEN 375 MG TABLET TAKE ONE TABLET BY MOUTH TWICE A DAY AFTER MEALS ORAL MEDICATION LIST REVIEWED AND RECONCILED WITH THE PATIENT PAST MEDICAL HISTORY ARTHRITIS CHRONIC PAIN FROM NECK TO TAIL BONE EXERCISE STRESS TEST WITH EKG BORDERLINE FOR ISCHEMIA (09/2019) ECHO SHOWED MILD LEFT ATRIALENLARGEMENT, OTHERWISE NORMAL (10/2019) 30 DAY EVENT MONITOR DID NOT SHOW CORRELATION BETWEEN PALPITATIONS/CHEST DISCOMFORT AND ARRHYTHMIA ALLERGIES LATEX (FOR ALLERGY USE ONLY): RASH, HIVES - ALLERGY SURGICAL HISTORY DENIES PAST SURGICAL HISTORY FAMILY HISTORY FATHER: 49 YRS, [place], DIAGNOSED WITH UNSPECIFIED HEART DISEASE MOTHER: ALIVE 57 YRS, FIBROMYALGIA, OSTEOARTHRITIS, OSTEOPOROSIS, DEPRESSION, ASTHMA, BETO, MIGRAINES, OTHER SPECIFIED CONDITIONS INFLUENCING HEALTH STATUS, DIABETES SIBLINGS: ALIVE, ONE BROTHER WITH LEUKEMIA, CHF WITH DEFIBRILLATOR; ANOTHER BROTHER WITH HEART MURMUR AND BETO, UNSPECIFIED HEART DISEASE, OTHER MALIGNANT NEOPLASM OF UNSPECIFIED SITE, OTHER SPECIFIED CONDITIONS INFLUENCING HEALTH STATUS 3 SON(S) , 1 DAUGHTER(S) - HEALTHY. SOCIAL HISTORY GENERAL: TOBACCO USE ARE YOU A:NONSMOKER LATEX QUESTIONNAIRE LATEX ALLERGY : HAVE YOU EVER DEVELOPED ANY TYPE OF REACTION AFTER HANDLING LATEX PRODUCTS SUCH RUBBER GLOVES, CONDOMS, DIAPHRAGMS, BALLOONS, SOCKS, OR UNDERWEAR?YES - PLEASE INDICATE :RUBBER GLOVES LATEX ALLERGY : HAVE YOU EVER DEVELOPED ANY TYPE OF REACTION DURING OR AFTER DENTAL APPOINTMENT, VAGINAL/RECTAL EXAMINATION, SURGICAL PROCEDURE, OR ANY OTHER EXPOSURE?YES - PLEASE INDICATE :SURGICAL PROCEDURE LATEX RISK : HAVE YOU EVER HAD ANY DIFFICULTY BREATHING OR HIVES AFTER EATING OR HANDLING ANY FRUITS, OR VEGETABLES; SUCH KIWI, BANANAS, STONE FRUITS, OR CHESTNUTSNO LATEX RISK : DO YOU HAVE A PREVIOUS PERSONAL HISTORY OF MORE THAN NINE SURGERIES, SPINA BIFIDA, OR REPEATED CATHERIZATIONS? NO LATEX RISK : ARE YOU FREQUENTLY EXPOSED TO LATEX PRODUCTS IN YOUR OCCUPATION?NO DATE ASKED : 02/04/2020 ALCOHOL SCREENING DID YOU HAVE A DRINK CONTAINING ALCOHOL IN THE PAST YEAR?YES HOW OFTEN DID YOU HAVE SIX OR MORE DRINKS ON ONE OCCASION IN THE PAST YEAR?NEVER (0 POINTS) HOW MANY DRINKS DID YOU HAVE ON A TYPICAL DAY WHEN YOU WERE DRINKING IN THE PAST YEAR?1 OR 2 (0 POINTS) HOW OFTEN DID YOU HAVE A DRINK CONTAINING ALCOHOL IN THE PAST YEAR?MONTHLY OR LESS (1 POINT) POINTS1 INTERPRETATIONNEGATIVE RECREATIONAL DRUG USE DRUG USE?NO CAFFEINE CAFFEINE USE?YES HOW OFTEN AND HOW MUCH? 3 CUPS COFFEE, 2 CUPS TEA/DAY SEXUAL HX HAD SEX IN THE LAST 12 MONTHS (VAGINAL, ORAL, OR ANAL)?YES WITHMEN ONLY HAVE YOU EVER HAD AN STD?NO HIV / HEP-C SCREENING HIV TEST OFFERED TO PATIENT:YES DATE OFFERED:07/11/2019 TEST ACCEPTED:NO HEP-C TEST OFFERED TO PATIENT:NO REASON:PATIENT DECLINED BROCHURE PROVIDED TO PATIENTNO RASTAFARI [id number] [employer] LANGUAGE LANGUAGES SPOKEN:MAURITANIAN EDUCATION LEVEL OF EDUCATION:FINISHED HIGH SCHOOL SOME COLLEGE LEARNING BARRIERS / SPECIAL NEEDS BARRIERS TO LEARNING?NO HEARING IMPAIRED?NO VISION IMPAIRED?YES :CORRECTIVE LENSES COGNITIVELY IMPAIRED?NO READINESS TO LEARN?YES LEARNING PREFERENCES?YES :DEMONSTRATION/VERBAL INSTRUCTION LEARNING CAPABILITIES PRESENT?YES EMOTIONAL BARRIERS?NO SPECIAL DEVICES?NO RADIOLOGY SERVICES MANAGER NEEDED?NO DOMESTIC VIOLENCE DO YOU FEEL SAFE IN YOUR ENVIRONMENT?YES 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 DIET: REGULAR. EXERCISE: STRETCHES BID. MARITAL STATUS: . OTHERS AT HOME: , CHILDREN, MIL, GRANDPARENTS; 3 CATS. PAIN CLINIC PFS, CLERGY, PUBLIC HEALTH REFERRALS PFS REFERRAL NEEDED?NO CLERGY REFERRAL NEEDED?NO PUBLIC HEALTH REFERRAL NEEDED?NO HAS THE PATIENT BEEN EDUCATED REGARDING HIS/HER PLAN OF CARE?YES HAS THE PATIENT BEEN EDUCATED REGARDING PAIN, THE RISK FOR PAIN, THE IMPORTANCE OF EFFECTIVE PAIN MANAGEMENT, AND THE PAIN ASSESSMENT PROCESS?YES ADVANCE DIRECTIVE ADVANCE DIRECTIVE DISCUSSED WITH PATIENT:YES 02/04/2020 PATIENT HAS NO ADVANCED DIRECTIVES AND DECLINES INFORMATION ON HCP AT THIS TIME. AD SHE ENJOYS HIKING AND DOING CRAFTS WITH THE CHILDREN. HOSPITALIZATION/MAJOR DIAGNOSTIC PROCEDURE WHOOPING COUGH AND PNEUMONIA BABY MILD CONCUSSION AGE 10 CHILD 1993, 1996, 2013, 2014 REVIEW OF SYSTEMS CONSTITUTIONAL: ANY RECENT FEVER OR ILLNESS NO . CHILLS NO . GASTROENTEROLOGY: BOWEL INCONTINENCE NO . ANY NEW CHANGE IN BOWEL CONTROL? NO . ABDOMINAL PAIN NO . CONSTIPATION NO . GENITOURINARY: ANY NEW CHANGE IN BLADDER CONTROL? NO . IS THERE A CHANCE YOU COULD BE ? NO . URINARY INCONTINENCE NO . CARDIOLOGY: CHEST PRESSURE NO . CHEST PAIN NO . RESPIRATORY: COUGH NO . SHORTNESS OF BREATH NO . ASSESSMENTS LUMBOSACRAL RADICULOPATHY - M54.17 (PRIMARY) PROTRUSION OF INTERVERTEBRAL DISC OF LUMBOSACRAL REGION - M51.27 TREATMENT LUMBOSACRAL RADICULOPATHY NOTES: AFTER DISCUSSING POTENTIAL RISKS ASSOCIATED WITH LESI IN THE CURRENT COVID 19 CRISIS SHE IS OPTING TO WAIT. PAIN IS BEARABLE. PAIN IS NOT INTERRUPTING HER ADLS. CONTINUE HOME EXERCISE AND STRETCHING. FOLLOW-UP AT PAIN CENTER IN 6 WEEKS. TOTAL TIME SPENT DURING VIRTUAL TELEMED VISIT WAS APPROXIMATELY 12 MINUTES. DUE TO VIRTUAL VISIT-V/S NOT DONE. DISPOSITION & COMMUNICATION FOLLOW UP 6 WEEKS (REASON: LBP) ELECTRONICALLY SIGNED BY JESSICA VERDUGO ON 02/05/2020 AT 08:39 AM EDT DISCLAIMER : THIS IS A VISIT SUMMARY EXTRACTED FROM THE [employer] CHART. IT IS NOT A COPY OF THE [employer] PROGRESS NOTE. RADHA
== END ==
LOC: M TMPAIN 09:15 → M PAIN 09:15
PROVIDERS: ATTEND Nurse Practitioner Family
DX: M54.17 Radiculopathy, lumbosacral region (principal); M51.27 Other intervertebral disc displacement, lumbosacral region

== ENCOUNTER → 2020-03-18 | Outpatient (CLI) | payer MEDICAID, OTHER, SELFPAY ==
--- NOTE | 2020-03-19 04:02 | ECWPNPC ---
PATIENT NAME: HYUN SOSA : 1975 GENDER: FEMALE VISIT DATE: 03/18/2020 DISCHARGE DATE: 03/18/20 1050 VISIT LOCKED DATE TIME: PHYSICIAN: JANNA JACOBSON RESOURCE: JANNA JACOBSON REASON FOR APPOINTMENT 1. LBP-IN OFFICE PRE PROC HISTORY OF PRESENT ILLNESS GENERAL: HERE FOR FOLLOW-UP OF CHRONIC LOW BACK PAIN WITH LOWER EXTREMITY RADICULAR SYMPTOMS. PAIN HAS BEGUN TO RETURN TO BASELINE. HAS RESPONDED WELL TO LUMBAR EPIDURAL STEROID INJECTIONS, BOTH FOR LOW BACK PAIN CONTROL AND LOWER EXTREMITY RADICULAR SYMPTOMS. REVIEWED MRI OF THE LS-SPINE. DISCUSSED TREATMENT PLAN. -. FALL RISK SCREENING: SCREENING :NO FALLS REPORTED IN THE LAST YEAR PAIN SCREENING: PATIENT HAS A COMPLAINT OF ACUTE OR CHRONIC PAIN :YES LOCATION OF PAIN: LOWER LUMBAR WHAT DOES YOUR PAIN FEEL LIKE:INTERMITTENT, TENDER, ACHING, BURNING NURSING NOTE: -. PAIN CENTER INTAKE QUESTIONS: DO YOU HAVE A HISTORY OF MRSA? :NO DO YOU TAKE A BLOOD THINNERS? :NO DO YOU HAVE ANY BLEEDING DISORDERS? :NO ANY NEW NUMBNESS OR WEAKNESS IN YOUR LEGS OR ARMS? :NO ANY PACEMAKER,DEFIBRILLATOR, OR DORSAL COLUMN STIMULATOR? :NO DO YOU HAVE ANY RASHES OR OPEN SORES? :NO ARE YOU ALLERGIC TO IV DYE? :NO ARE YOU DIABETIC? :NO ANY NEW PROBLEMS WITH YOUR MEDICATIONS? :NO HAVE YOU RECEIVED A VACCINE IN THE PAST 30 DAYS? :NO DO YOU PLAN TO RECEIVE A VACCINE IN THE NEXT 21 DAYS? :NO DO YOU NEED ANY PRESCRIPTION? :NO DO YOU TAKE ANY IMMUNOSUPPRESSIVE MEDICATIONS? :NO IS THERE A CHANCE YOU COULD BE ? :NO ARE YOU BREAST FEEDING? :NO CURRENT MEDICATIONS TAKING TIZANIDINE HCL 4 MG CAPSULE TAKE ONE CAPSULE BY MOUTH EVERY 8 HOURS NEEDED MAXIMUM DAILY DOSE 4 TABLETS ORAL TAKING CENTRUM SILVER - TABLET DIRECTED ORALLY DAILY NOT-TAKING PAXIL 20 MG TABLET 1 TABLET IN THE MORNING ORALLY ONCE A DAY NOT-TAKING AMOXICILLIN 500 MG TABLET 1 TABLET ORALLY THREE TIMES DAILY NOT-TAKING NAPROXEN 375 MG TABLET TAKE ONE TABLET BY MOUTH TWICE A DAY AFTER MEALS ORAL PAST MEDICAL HISTORY ARTHRITIS CHRONIC PAIN FROM NECK TO TAIL BONE EXERCISE STRESS TEST WITH EKG BORDERLINE FOR ISCHEMIA (09/2019) ECHO SHOWED MILD LEFT ATRIALENLARGEMENT, OTHERWISE NORMAL (10/2019) 30 DAY EVENT MONITOR DID NOT SHOW CORRELATION BETWEEN PALPITATIONS/CHEST DISCOMFORT AND ARRHYTHMIA ALLERGIES LATEX (FOR ALLERGY USE ONLY): RASH, HIVES - ALLERGY SURGICAL HISTORY NO SURGICAL HISTORY DOCUMENTED. FAMILY HISTORY FATHER: 49 YRS, [place], DIAGNOSED WITH UNSPECIFIED HEART DISEASE MOTHER: ALIVE 57 YRS, FIBROMYALGIA, OSTEOARTHRITIS, OSTEOPOROSIS, DEPRESSION, ASTHMA, BETO, MIGRAINES, DIABETES, OTHER SPECIFIED CONDITIONS INFLUENCING HEALTH STATUS SIBLINGS: ALIVE, ONE BROTHER WITH LEUKEMIA, CHF WITH DEFIBRILLATOR; ANOTHER BROTHER WITH HEART MURMUR AND BETO, UNSPECIFIED HEART DISEASE, OTHER MALIGNANT NEOPLASM OF UNSPECIFIED SITE, OTHER SPECIFIED CONDITIONS INFLUENCING HEALTH STATUS 3 SON(S) , 1 DAUGHTER(S) - HEALTHY. SOCIAL HISTORY GENERAL: TOBACCO USE ARE YOU A:NONSMOKER LATEX QUESTIONNAIRE LATEX ALLERGY : HAVE YOU EVER DEVELOPED ANY TYPE OF REACTION AFTER HANDLING LATEX PRODUCTS SUCH RUBBER GLOVES, CONDOMS, DIAPHRAGMS, BALLOONS, SOCKS, OR UNDERWEAR?YES LATEX ALLERGY : HAVE YOU EVER DEVELOPED ANY TYPE OF REACTION DURING OR AFTER DENTAL APPOINTMENT, VAGINAL/RECTAL EXAMINATION, SURGICAL PROCEDURE, OR ANY OTHER EXPOSURE?YES - PLEASE INDICATE :RUBBER GLOVES - PLEASE INDICATE :SURGICAL PROCEDURE DATE ASKED : 02/04/2020 LATEX RISK : HAVE YOU EVER HAD ANY DIFFICULTY BREATHING OR HIVES AFTER EATING OR HANDLING ANY FRUITS, OR VEGETABLES; SUCH KIWI, BANANAS, STONE FRUITS, OR CHESTNUTSNO LATEX RISK : DO YOU HAVE A PREVIOUS PERSONAL HISTORY OF MORE THAN NINE SURGERIES, SPINA BIFIDA, OR REPEATED CATHERIZATIONS? NO LATEX RISK : ARE YOU FREQUENTLY EXPOSED TO LATEX PRODUCTS IN YOUR OCCUPATION?NO ALCOHOL SCREENING DID YOU HAVE A DRINK CONTAINING ALCOHOL IN THE PAST YEAR?YES HOW OFTEN DID YOU HAVE SIX OR MORE DRINKS ON ONE OCCASION IN THE PAST YEAR?NEVER (0 POINTS) HOW MANY DRINKS DID YOU HAVE ON A TYPICAL DAY WHEN YOU WERE DRINKING IN THE PAST YEAR?1 OR 2 (0 POINTS) HOW OFTEN DID YOU HAVE A DRINK CONTAINING ALCOHOL IN THE PAST YEAR?MONTHLY OR LESS (1 POINT) POINTS1 INTERPRETATIONNEGATIVE RECREATIONAL DRUG USE DRUG USE?NO CAFFEINE CAFFEINE USE?YES HOW OFTEN AND HOW MUCH? 3 CUPS COFFEE, 2 CUPS TEA/DAY SEXUAL HX HAD SEX IN THE LAST 12 MONTHS (VAGINAL, ORAL, OR ANAL)?YES WITHMEN ONLY HAVE YOU EVER HAD AN STD?NO HIV / HEP-C SCREENING HIV TEST OFFERED TO PATIENT:YES DATE OFFERED:07/11/2019 TEST ACCEPTED:NO HEP-C TEST OFFERED TO PATIENT:NO REASON:PATIENT DECLINED BROCHURE PROVIDED TO PATIENTNO RASTAFARI [id number] [employer] LANGUAGE LANGUAGES SPOKEN:FILIPINO EDUCATION LEVEL OF EDUCATION:FINISHED HIGH SCHOOL SOME COLLEGE LEARNING BARRIERS / SPECIAL NEEDS BARRIERS TO LEARNING?NO HEARING IMPAIRED?NO VISION IMPAIRED?YES COGNITIVELY IMPAIRED?NO :CORRECTIVE LENSES READINESS TO LEARN?YES LEARNING PREFERENCES?YES :DEMONSTRATION/VERBAL INSTRUCTION LEARNING CAPABILITIES PRESENT?YES EMOTIONAL BARRIERS?NO SPECIAL DEVICES?NO CONTROL OFFICER MANAGER NEEDED?NO DOMESTIC VIOLENCE DO YOU FEEL SAFE IN YOUR ENVIRONMENT?YES 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 DIET: REGULAR. EXERCISE: STRETCHES BID. MARITAL STATUS: . OTHERS AT HOME: , CHILDREN, MIL, GRANDPARENTS; 3 CATS. PAIN CLINIC PFS, CLERGY, PUBLIC HEALTH REFERRALS PFS REFERRAL NEEDED?NO CLERGY REFERRAL NEEDED?NO PUBLIC HEALTH REFERRAL NEEDED?NO HAS THE PATIENT BEEN EDUCATED REGARDING HIS/HER PLAN OF CARE?YES HAS THE PATIENT BEEN EDUCATED REGARDING PAIN, THE RISK FOR PAIN, THE IMPORTANCE OF EFFECTIVE PAIN MANAGEMENT, AND THE PAIN ASSESSMENT PROCESS?YES ADVANCE DIRECTIVE ADVANCE DIRECTIVE DISCUSSED WITH PATIENT:YES 02/04/2020 PATIENT HAS NO ADVANCED DIRECTIVES AND DECLINES INFORMATION ON HCP AT THIS TIME. AD SHE ENJOYS HIKING AND DOING CRAFTS WITH THE CHILDREN. HOSPITALIZATION/MAJOR DIAGNOSTIC PROCEDURE WHOOPING COUGH AND PNEUMONIA BABY MILD CONCUSSION AGE 10 CHILD 1993, 1996, 2013, 2014 REVIEW OF SYSTEMS CONSTITUTIONAL: ANY RECENT FEVER NO . CHILLS NO . WEIGHT CHANGE OF UNKNOWN REASONS NO . GASTROENTEROLOGY: NEW UNEXPLAINABLE CHANGES IN BOWEL CONTROL OVER THE PAST MONTH. HAS BEEN EXPERIENCING PERIODIC BOWEL URGENCY. DENIES BOWEL INCONTINENCE. . CONSTIPATION NO . GENITOURINARY: ANY NEW CHANGE IN BLADDER CONTROL? NO . NEUROLOGY: NEW ONSET DIZZINESS OR NEUROLOGICAL CHANGES NOT MENTIONED NO . NEW NUMBNESS OR PAIN PATTERNS NOT MENTIONED AND PERTINENT TO TODAY'S VISIT NO . CARDIOLOGY: NEW CHEST PRESSURE NO . NEW CHEST PAIN NO . RESPIRATORY: UNEXPLAINABLE COUGH NO . NEW SHORTNESS OF BREATH NO . VITAL SIGNS WT 226.0 LBS, HT 67 IN, BMI 35.39 INDEX, BP 133/67 MM HG, HR 72 /MIN, RR 18 /MIN, TEMP 97.9 F, OXYGEN SAT % 97%, NA INITIALS AW 1011. EXAMINATION GENERAL EXAMINATION: GENERAL AWAKE,ALERT ,PLEASANT . PSYCH AFFECT NORMAL . LUNGS: LUNG JAY ARE CLEAR TO AUSCULTATION BILATERALLY. GOOD MOVEMENT OF AIR . HEART: S1, S2 IN A REGULAR RATE AND RHYTHM. NO SIGNIFICANT MURMURS, RUBS OR GALLOPS NOTED . MUSCULOSKELETAL:SLIGHT WEAKNESS OVER RIGHT LEG. LUMBAR: PALPATION: + FOR PAIN OVER L/S SPINE. + FOR PAIN OVER L/S PARASPINALS. NEUROLOGIC EXAM: NORMAL SENSATION LIGHT TOUCH BILAT. LOWER EXTREMITIES.DTR 2/4 BILAT.. DIAGNOSTIC TESTS REVIEWED MRI L/S SPINE-06/05/19. ASSESSMENTS LUMBOSACRAL RADICULOPATHY - M54.17 (PRIMARY) PROTRUSION OF INTERVERTEBRAL DISC OF LUMBOSACRAL REGION - M51.27 TREATMENT LUMBOSACRAL RADICULOPATHY NOTES: L3-4 LESI . PROCEDURE CODES FA211 ESTABILISHED PATIENT [facility] CHARGE DISPOSITION & COMMUNICATION FOLLOW UP POST PROCEDURE (REASON: L3-4 LESI) ELECTRONICALLY SIGNED BY JESSICA VERDUGO ON 03/18/2020 AT 04:37 PM EDT DISCLAIMER : THIS IS A VISIT SUMMARY EXTRACTED FROM THE Barcoding CHART. IT IS NOT A COPY OF THE Barcoding PROGRESS NOTE. RADHA
== END ==
LOC: M PAIN 09:45
PROVIDERS: ATTEND Nurse Practitioner Family
DX: M54.17 Radiculopathy, lumbosacral region (principal); M51.27 Other intervertebral disc displacement, lumbosacral region

== ENCOUNTER → 2020-05-28 | Outpatient (CLI) | payer OTHER, SELFPAY | LOC: M LABSMTC 10:24 | PROVIDERS: ATTEND Family Medicine | DX: Z20.828 Contact with and (suspected) exposure to other viral communicable diseases (principal) | CPT/HCPCS: C9803; U0003 ==

== ENCOUNTER → 2020-05-28 | Outpatient (REF) | payer SELFPAY | LOC: M SFHCPLAZ 13:32 | PROVIDERS: ATTEND Physician Assistant | DX: R07.0 Pain in throat (principal); R35.0 Frequency of micturition ==

== ENCOUNTER → 2020-06-04 | Outpatient (REF) | payer OTHER ==
[2020-06-04 13:26] LABS: BASO # 0.1 10^3/uL (0.0-0.2); BASO % 0.6 % (0.0-1.0); EOS # 0.1 10^3/uL (0.0-0.5); EOS % 1.2 % (0.0-3.0); HEMATOCRIT 41.6 % (36.0-47.0); HEMOGLOBIN 13.8 g/dl (12.0-15.5); LYMPH # 1.8 10^3/uL (1.5-5.0); LYMPH % 23.2 % (24.0-44.0); MEAN CORPUSCULAR HEMOGLOBIN 30.5 pg (27.0-33.0); MEAN CORPUSCULAR HGB CONC 33.2 g/dl (32.0-36.5); MONO # 0.5 10^3/uL (0.0-0.8); MONO % 6.7 % (0.0-5.0); NEUTROPHILS # 5.3 10^3/uL (1.5-8.5); NEUTROPHILS % 67.9 % (36.0-66.0); PLATELET COUNT, AUTOMATED 377 10^3/uL (150-450); RED BLOOD COUNT 4.52 10^6/uL (4.00-5.40); WHITE BLOOD COUNT 7.7 10^3/uL (4.0-10.0)
[2020-06-04 14:09] LABS: ALBUMIN 3.7 GM/DL (3.2-5.2); ALT/SGPT 48 U/L (12-78); BILIRUBIN,TOTAL 0.9 MG/DL (0.2-1.0); BLOOD UREA NITROGEN 9 MG/DL (7-18); CALCIUM LEVEL 8.7 MG/DL (8.5-10.1); CARBON DIOXIDE LEVEL 26 MEQ/L (21-32); CHLORIDE LEVEL 105 MEQ/L (98-107); CREATININE FOR GFR 0.73 MG/DL (0.55-1.30); GLOMERULAR FILTRATION RATE > 60.0 (>58); GLUCOSE, FASTING 158 MG/DL (70-100); POTASSIUM SERUM 4.6 MEQ/L (3.5-5.1); SODIUM LEVEL 138 MEQ/L (136-145); TOTAL PROTEIN 7.3 GM/DL (6.4-8.2)
[2020-06-04 15:40] LABS: HEMOGLOBIN A1c 6.7 %
== END ==
LOC: M SFHCADAM 12:47
PROVIDERS: ATTEND Family Medicine
DX: R73.9 Hyperglycemia, unspecified (principal); D72.829 Elevated white blood cell count, unspecified; R53.83 Other fatigue; R00.2 Palpitations

== ENCOUNTER → 2020-09-16 | Outpatient (CLI) | payer SELFPAY | LOC: M LABSMTC 10:45 | PROVIDERS: ATTEND Pediatrics | DX: Z20.828 Contact with and (suspected) exposure to other viral communicable diseases (principal) ==

== ENCOUNTER 2020-09-25 11:45 | Emergency (ER) | payer OTHER, SELFPAY ==
[~2020-09-25] VITALS: Ht 170.2 cm; Wt 97.6 kg
--- OUTSIDE RECORDS SUMMARY | 2020-09-25 11:57 | CCD ---
Author Author [facility] Organization [facility] Address Unknown Phone Unavailable Care Team Providers Care Sdet Name Role Phone Babita Cox Unavailable PROBLEMS Type Condition ICD9-CM Code RCH17-IB Code Onset Dates Condition S tatus SNOMED Code Notes Problem Obesity, unspecified E66.9 Active 311201854 Problem Type 2 diabetes mellitus with other specified complication E11.69 Active 63856674 Problem Lumbosacral radiculopathy M54.17 Active 853315 7 Problem Protrusion of intervertebral disc of lumbosacral region M51.27 Active 85194596 Problem Depression, unspecified depression type F32.9 Active 72512084 Problem Intervertebral disc disorders with radiculopathy , 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 203171385601829 ALLERGIES Allergen (clinical drug ingredient) Drug/Non Drug Allergy do cumented on EMR Reaction Allergy Type Onset Date Status Latex (for allergy use only) rash, hives Drug Allergy Active ENCOUNTERS from 1975 to 2020-08-01 Encounter Location Date Provider Diagnosis [address] [address] Jul, Babita Cox IMMUNIZATIONS Vaccine Route Administration Date Status Influenza (18 yrs & older) Flublok IM Intramuscular Jun 11, 2020 Administered Influenza (18 yrs & older) Flublok IM Intramuscular Jul 11, 2019 Administered Pneumococcal Adult 0.5mL (Pneumovax 23) IM Intramuscular Jun 11, 2020 Administered Influenza (6mo & up) Fluzone Unknown Nov 01, 2014 Ref used SOCIAL HISTORY Tobacco Use: Social History Observation Description Date Details (start date - stop date) Never Smoker Sex Assigned At : Social History Observation Description Sex Assigned At Unknown Education: Question Answer Notes Level of Education: Finished High School some college Audit Question Answer Notes Total Score: 0 Interpretation: Alcohol Education Language: Question Answer Notes Languages spoken: Arabic Caodaism: Question Answer Notes Caodaism 05 Yarsanism Sexual Hx: Question Answer Notes Had sex in the last 12 months (vaginal, oral, or anal)? Yes Have you ever had an STD? No with Men only Drug and Alcohol Question Answer Notes Total Score: 0 Interpretation: No problems reported Alcohol Screening: Question Answer Notes Did you have a drink containing alcohol in the past year? Ye s Points 1 Interpretation Negative How often did you have six or more drinks on one occas ion in the past year? Never (0 points) How many drinks did you have on a typica l day when you were drinking in the past year? 1 or 2 (0 points) How often did you have a drink containing alcohol in t he past year? Monthly or less (1 point) Tobacco Use: Question Answer Notes Are you a: never smoker REASON FOR REFERRAL No Information VITAL SIGNS No information MEDICATIONS Medication SIG (Take, Route, Frequency, Duration) Notes Start Da te End Date Status Omeprazole 20 MG 1 capsule 30 minutes before morning meal Orally Once a day for 30 day(s) Jun, Active Blood Glucose Test - as directed In Vitro tid for 30 Days Jun, Active Tizanidine HCl 4 MG TAKE ONE CAPSULE BY MOUTH EV ASHLEY 8 HOURS NEEDED MAXIMUM DAILY DOSE 4 TABLETS Oral for 20 Active Glucometer as directed topically Daily for 30 Days Jun, Active Zofran 4 MG 1 tablet Orally every 4 hours as needed for 10 d ay(s) Jun, Active Centrum Silver - as directed Orally Daily Active Lancets - as directed topically tid for 30 Days Jun, 020 Active PROCEDURES No Information RESULTS No Results REASON FOR VISIT new appt MEDICAL (GENERAL) HISTORY Type Description Date Medical History Arthritis Medical History Chronic pain from neck to tail bone Medical History exercise stress test with EKG borderline for ischemia (09/2019) Medical History echo showed mild left atrial enlargement, otherwise normal (10/2019) Medical History 30 day event monitor did not show correlation between palpitations/chest discomfort and arrhythmia Medical History gestational diabetes in her last 2 pregn ancies Medical History diabetes mellitus type 2 (06/2020) Surgical History No know Surgical history Hospitalization History whooping cough and pneumonia as baby Hospitalization History mild concussion age 10 Hospitalization History child 1993, 1996, 2013 , 2014 Goals Section No Information Health Concerns No Information MEDICAL EQUIPMENT No Information MENTAL STATUS No Information FUNCTIONAL STATUS No Information ASSESSMENTS No Information PLAN OF TREATMENT Next Appt Details Provider Name:Babita Cox, 2019-11-3 0 01:00:00 PM, [address] [place], [address], Provider Name:Raya Abdi, 2020-10-02 09:30:00 AM, [address], [place], [address], Insurance Providers Payer Name Payer Address Payer Phone Insured Name Patient Relati onship to Insured Coverage Start Date Coverage End Date [facility] CLAIMS DEPT [address] [facility] [phone] HYUN SOSA self
--- OUTSIDE RECORDS SUMMARY | 2020-09-25 11:57 | CCD ---
Author Author [facility] Organization [facility] Address Unknown Phone Unavailable Care Team Providers Care Crabbing Machine Operator Name Role Phone Mahin Quintero Unavailable PROBLEMS Type Condition ICD9-CM Code ARU86-IA Code Onset Dates Condition S tatus SNOMED Code Notes Problem Obesity, unspecified E66.9 Active 472618851 Problem Type 2 diabetes mellitus with other specified complication E11.69 Active 96140824 Problem Lumbosacral radiculopathy M54.17 Active 712726 7 Problem Protrusion of intervertebral disc of lumbosacral region M51.27 Active 40692057 Problem Depression, unspecified depression type F32.9 Active 04129095 Problem Intervertebral disc disorders with radiculopathy , 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 100976672762359 ALLERGIES Allergen (clinical drug ingredient) Drug/Non Drug Allergy do cumented on EMR Reaction Allergy Type Onset Date Status Latex (for allergy use only) rash, hives Drug Allergy Active ENCOUNTERS from 1975 to 2020-09-16 Encounter Location Date Provider Diagnosis [address] [place] [address] Aug, Adilson Quintero Hordeolum externum left lower eyelid H00.015 IMMUNIZATIONS Vaccine Route Administration Date Status Influenza [...] Education Language: Question Answer Notes Languages spoken: Spanish Presybeterian: Question Answer Notes Presybeterian 05 Mormonism Sexual Hx: Question Answer Notes Had sex [...] REASON FOR REFERRAL No Information VITAL SIGNS Weight 215.8 lbs Aug, Height 67 in Aug, BMI 33.80 kg/m2 Aug, Heart Rate 102 /min Aug, Respiratory Rate 18 /min Aug, Temperature 98.6 degrees Fahrenheit Aug, Oximetry 98 Aug, Blood pressure systolic 130 mm Hg Aug, Blood pressure diastolic 84 mm Hg Aug, MEDICATIONS Medication SIG (Take, Route, Frequency, Duration) Notes Start Da te End Date Status Bleph-10 10 % 2 drops into affected eye Op hthalmic four times daily for 5 day(s) Aug, Active Centrum Silver - as directed Orally Daily Not-Taking Tizanidine HCl 4 MG TAKE ONE CAPSULE BY MOUTH EV ASHLEY 8 HOURS NEEDED MAXIMUM DAILY DOSE 4 TABLETS Oral for 20 Active Blood Glucose Test - as directed In Vitro tid for 30 Days Jun, Not-Taking Omeprazole 20 MG 1 capsule 30 minutes before morning meal Orally Once a day for 30 day(s) Jun, Not-Taking Glucometer as directed topically Daily for 30 Days Jun, Not-Taking Zofran 4 MG 1 tablet Orally every 4 hours as needed for 10 d ay(s) Jun, Not-Taking Lancets - as directed topically tid for 30 Days Jun, 2 020 Not-Taking PROCEDURES No Information RESULTS No Results REASON FOR VISIT Pt has a bump in the lower inside lid of her left eye [phone] MEDICAL (GENERAL) HISTORY Type Description Date Medical [...] No Information FUNCTIONAL STATUS No Information ASSESSMENTS Encounter Date Diagnosis Assessment Notes Treatment Notes Treatm ent Clinical Notes Aug, Hordeolum externum left lower eyelid (ICD-10 - H 00.015) [email or web address] PLAN OF TREATMENT Medication Medication Name Sig Start Date Stop Date Bleph-10 10 % 2 drops into affected eye Op hthalmic four times daily for 5 day(s) Aug, Treatment Notes Assessment Notes Clinical Notes Hordeolum externum left lower eyelid [email or web address] Next Appt Details prn Reason: Provider Name:Raya Abdi, 2020-10-02 09:30:00 AM, [address], [place], [address], Insurance Providers Payer Name Payer Address Payer Phone Insured Name Patient Relati onship to Insured Coverage Start Date Coverage End Date [employer] [facility] [place] [address] [facility] [id number] HYUN SOSA self
--- OUTSIDE RECORDS SUMMARY | 2020-09-25 11:57 | CCD ---
Author Author [facility] Organization [facility] Address Unknown Phone Unavailable Care Team Providers Care Automotive Leasing Sales Representative Name Role Phone Raya Abdi Unavailable PROBLEMS Type Condition ICD9-CM Code SVG18-RL Code Onset Dates Condition S tatus SNOMED Code Notes Problem Obesity, unspecified E66.9 Active 026219205 Problem Type 2 diabetes mellitus with other specified complication E11.69 Active 59666173 Problem Lumbosacral radiculopathy M54.17 Active 837410 7 Problem Protrusion of intervertebral disc of lumbosacral region M51.27 Active 80666149 Problem Depression, unspecified depression type F32.9 Active 12454659 Problem Intervertebral disc disorders with radiculopathy , 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 877544068150043 ALLERGIES Allergen (clinical drug ingredient) Drug/Non Drug Allergy do cumented on EMR Reaction Allergy Type Onset Date Status Latex (for allergy use only) rash, hives Drug Allergy Active ENCOUNTERS from 1975 to 2020-09-19 Encounter Location Date Provider Diagnosis [address] [place] [address] Sep, Raya Abdi IMMUNIZATIONS Vaccine Route Administration Date Status Influenza [...] Education Language: Question Answer Notes Languages spoken: Bermudian Worship: Question Answer Notes Worship 05 Cheondoism Sexual Hx: Question Answer Notes Had sex [...] topically tid for 30 Days Jun, 020 Not-Taking PROCEDURES No Information RESULTS No Results REASON FOR VISIT Update Demographics - Personal Info MEDICAL (GENERAL) HISTORY Type Description Date Medical [...] Information ASSESSMENTS No Information PLAN OF TREATMENT Medication Medication Name Sig Start Date Stop Date Bleph-10 10 % 2 drops into affected eye Op hthalmic four times daily for 5 day(s) Aug, Next Appt Details Provider Name:Raya Abdi, 2020-10-02 09:30:00 AM, [address], [place], [address], Insurance Providers Payer Name Payer Address Payer Phone Insured Name Patient Relati onship to Insured Coverage Start Date Coverage End Date [employer] [facility] [place] [address] [facility] [id number] HYUN SOSA self
--- OUTSIDE RECORDS SUMMARY | 2020-09-25 11:57 | CCD ---
Author Author [facility] Organization [facility] Address Unknown Phone Unavailable Care Team Providers Care Net Wpf Developer Name Role Phone Raya Abdi Unavailable PROBLEMS Type Condition ICD9-CM Code WIL02-WN Code Onset Dates Condition S tatus SNOMED Code Notes Problem Obesity, unspecified E66.9 Active 304373345 Problem Type 2 diabetes mellitus with other specified complication E11.69 Active 23866726 Problem Lumbosacral radiculopathy M54.17 Active 308801 7 Problem Protrusion of intervertebral disc of lumbosacral region M51.27 Active 30573886 Problem Depression, unspecified depression type F32.9 Active 06017230 Problem Intervertebral disc disorders with radiculopathy , 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 372600671463773 ALLERGIES Allergen (clinical drug ingredient) Drug/Non Drug Allergy do cumented on EMR Reaction Allergy Type Onset Date Status Latex (for allergy use only) rash, hives Drug Allergy Active ENCOUNTERS from 1975 to 2020-09-19 Encounter Location Date Provider Diagnosis [address] [place] [address] Sep, Raya Abdi IMMUNIZATIONS Vaccine Route Administration [...] Education Language: Question Answer Notes Languages spoken: Irish Jainism: Question Answer Notes Jainism 05 Uatsdin Sexual Hx: Question Answer Notes Had sex [...] Results REASON FOR VISIT Update Demographics - Additional Info MEDICAL (GENERAL) HISTORY Type Description Date [...] Details Provider Name:Raya Abdi, 2020-10-02 09:30:00 AM, [address], [place], [address], Insurance Providers Payer Name Payer Address Payer Phone Insured Name Patient Relati onship to Insured Coverage Start Date Coverage End Date [employer] [facility] [place] [address] [facility] [id number] HYUN SOSA self
--- OUTSIDE RECORDS SUMMARY | 2020-09-25 11:57 | CCD ---
Author Author [facility] [employer] [facility] Organization [facility] [employer] [facility] Address Unknown Phone Unavailable Care Team Providers Care Technical Intern Name Role Phone LeathakinmarkMahin williamson Unavailable PROBLEMS Type Condition ICD9-CM Code UQP56-YO Code Onset Dates Condition S tatus SNOMED Code Notes Problem Obesity, unspecified E66.9 Active 326296783 Problem Type 2 diabetes mellitus with other specified complication E11.69 Active 26114954 Problem Lumbosacral radiculopathy M54.17 Active 900109 7 Problem Protrusion of intervertebral disc of lumbosacral region M51.27 Active 60318896 Problem Depression, unspecified depression type F32.9 Active 35520536 Problem Intervertebral disc disorders with radiculopathy , 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 695998501888115 ALLERGIES Allergen (clinical drug ingredient) Drug/Non Drug Allergy do cumented on EMR Reaction Allergy Type Onset Date Status Latex (for allergy use only) rash, hives Drug Allergy Active ENCOUNTERS from 1975 to 2020-09-02 Encounter Location Date Provider Diagnosis [address] [address] Aug, Mahin Quintero IMMUNIZATIONS Vaccine Route Administration Date Status Influenza [...] Education Language: Question Answer Notes Languages spoken: Bulgarian Catholic: Question Answer Notes Catholic 05 Christian Sexual Hx: Question Answer Notes Had sex [...] Information RESULTS No Results REASON FOR VISIT left eye concerns MEDICAL (GENERAL) HISTORY Type Description Date Medical [...] Details Provider Name:Raya Abdi, 2020-10-02 09:30:00 AM, [address], [place], [address], Insurance Providers Payer Name Payer Address Payer Phone Insured Name Patient Relati onship to Insured Coverage Start Date Coverage End Date [employer] [facility] [address] [facility] [id number] HYUN SOSA self
--- OUTSIDE RECORDS SUMMARY | 2020-09-25 11:58 | CCD ---
Author Author [facility] Organization [facility] Address Unknown Phone Unavailable Care Team Providers Care Clinical Quality Manager Name Role Phone Raya Abdi Unavailable PROBLEMS Type Condition ICD9-CM Code VBW91-GD Code Onset Dates Condition S tatus SNOMED Code Notes Problem Obesity, unspecified E66.9 Active 723258471 Problem Type 2 diabetes mellitus with other specified complication E11.69 Active 86441017 Problem Lumbosacral radiculopathy M54.17 Active 873128 7 Problem Protrusion of intervertebral disc of lumbosacral region M51.27 Active 17392299 Problem Depression, unspecified depression type F32.9 Active 30543150 Problem Intervertebral disc disorders with radiculopathy , 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 728435981734677 ALLERGIES Allergen (clinical drug ingredient) Drug/Non Drug Allergy do cumented on EMR Reaction Allergy Type Onset Date Status Latex (for allergy use only) rash, hives Drug Allergy Active ENCOUNTERS from 1975 to 2020-07-02 Encounter Location Date Provider Diagnosis [address] [place] [address] Jun, Raya Trinidad IMMUNIZATIONS Vaccine Route Administration Date Status Influenza [...] Education Language: Question Answer Notes Languages spoken: Azerbaijani Yazidi: Question Answer Notes Yazidi 05 Jew Sexual Hx: Question Answer Notes Had sex [...] MEDICATIONS Medication SIG (Take, Route, Frequency, Duration) Start Date En d Date Status Omeprazole 20 MG 1 capsule 30 minutes before morning meal Orally Once a day for 30 day(s) Jun, Active Blood Glucose Test - as directed In Vitro tid for 30 Days Jun, 020 Active Tizanidine HCl 4 MG TAKE ONE CAPSULE BY MOUTH EV ASHLEY 8 HOURS NEEDED MAXIMUM DAILY DOSE 4 TABLETS Oral for 20 Activ e Glucometer as directed topically Daily for 30 Days Jun, Active Zofran 4 MG 1 tablet Orally every 4 hours as needed for 10 d ay(s) Jun, Active Centrum Silver - as directed Orally Daily Active Lancets - as directed topically tid for 30 Days Jun, Active PROCEDURES No Information RESULTS No Results REASON FOR VISIT referral MEDICAL (GENERAL) HISTORY Type Description Date Medical [...] PLAN OF TREATMENT Next Appt Details Provider Name:Raya Ale Abdi, 2020-10-02 09:30:00 AM, [address], [place], [address], Insurance Providers Payer Name Payer Address Payer Phone Insured Name Patient Relati onship to Insured Coverage Start Date Coverage End Date [facility] [employer] CLAIMS DEPT [address] [facility] [phone] HYUN SOSA self
--- OUTSIDE RECORDS SUMMARY | 2020-09-25 11:58 | CCD | Continuity of Care Document ---
Author Author Alis BABCOCK PA-C Organization Unknown Address [address] [place] [address] Phone [phone] Care Team Providers Care Head Mechanic Name Role Phone Froylan Ortiz AUTM [phone] Raya Reagan DO AUTM [phone] Problems Description No Information Available Social History Type Date Description Comments Sex Unknown ETOH Use Rarely consumes alcohol Tobacco Use Start: Unknown Denies Smoking Allergies, Adverse Reactions, Alerts Description No Known Drug Allergies Medications Active Medications SIG Qnty Indications Ordering Provide r Date Zanaflex 4mg Capsules 1 by mouth every 8 hours as needed 60caps M51.36 Jonah Michelle MD 9 Hydrocodone Bitartrate/Acetaminophen 5-325mg Tablets 1 tab by mouth every 6 hours prn/pain Unk nown Immunizations Description No Information Available Vital Signs Date Vital Result Comment 06/26/2020 10:23am Body Temperature 97.7 F 04/20/2019 11:00am Body Temperature 98.7 F Height 66.5 inches 5'6.50" Weight 214.00 lb BMI (Body Mass Index) 34.0 kg/m2 Results Description No Information Available Procedures Description No Information Available Medical Devices Description No Information Available Encounters Type Date Location Provider Dx Diagnosis Office Visit 06/26/2020 10:00a Beto Babcock PA-C M5 1.36 Other intervertebral disc degeneration, lumbar region Office Visit 05/19/2020 3:45p Beto Babcock PA-C M5 1.36 Other intervertebral disc degeneration, lumbar region M47.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, lumbar region Assessments Date Code Description Provider 06/26/2020 M51.36 Other intervertebral disc degene ration, lumbar region Theron Babcock PA-C 05/19/2020 M51.36 Other intervertebral disc degene ration, lumbar region Theron Babcock PA-C 05/19/2020 M47.26 Other spondylosis with radiculop athy, lumbar region Theron Babcock PA-C Plan of Treatment 06/26/2020 - Theron Babcock PA-C* M51.36 Other intervertebral disc degeneration, lumbar region* Follow up:* post inj Functional Status Description No Information Available Mental Status Description No Information Available Referrals Refer to Reason for Referral Status Appt Date Theron Babcock PA-C REF NO AUTH REQUIRED FOR REF TO [facility] TO TRANS NT Created [address] [place] [address] [phone] [place] [phone]
--- OUTSIDE RECORDS SUMMARY | 2020-09-25 11:58 | CCD ---
Author Author [facility] Organization [facility] Address Unknown Phone Unavailable Support Name Relationship Address Phone DANI NARAYAN Next Of Kin [address] [address] MADISON HARDY Next Of Kin [address] [place] [address] MACY JAIMEE Next Of Kin [address] [address] RMSCO Next Of Kin [address] [place] [address] JIMENAAdictiz [place] [address] ROXANE [place] [address] None, Pt Per Next Of Kin - - --, - - - Humberto Sosa- Next Of Kin [address] [place], [address] CELL [employer] FOODS Next Of Kin [address] [place] [address] [place] [address] CAR FRESHNER JAMES. Next Of Kin [address] [place] [address] HUMBERTO SOSA Next [place] [address] [place] [address] [place] [address] NAKUL SOSA Next Of Kin [address] [place] [address] CAR FRESHNER Next Of Kin [address] [place] [address] JOSE [place] [address] CARITO NARAYAN Next Of Kin [address] [phone] VILMA Next Of Kin [address] [place] [address] DANI ALEJANDRA Next Of Kin [address] [phone] Humberto Sosa [place] [address] [place] [address] Unavailable Care Team Providers Care Behavioral Health Care Manager Name Role Phone Ale Babcockatt PA Unavailable Unavailable Babcock, M Barratt PA Unavailable Unavailable Babcock, M Barratt PA Unavailable Unavailable Babcock, M Barratt PA Unavailable Unavailable Babcock, M Barratt PA Unavailable Unavailable Babcock, M Barratt PA Unavailable Unavailable Babcock, M Barratt PA Unavailable Unavailable Babcock, M Barratt PA Unavailable Unavailable Babcock, M Barratt PA Unavailable Unavailable Babcock, M Barratt PA Unavailable Unavailable Babcock, M Barratt PA Unavailable Unavailable Babcock, M Barratt PA Unavailable Unavailable Babcock, M Barratt PA Unavailable Unavailable Babcock, M Barratt PA Unavailable Unavailable Babcock, M Barratt PA Unavailable Unavailable Babcock, M Barratt PA Unavailable Unavailable Babcock, M Barratt PA Unavailable Unavailable Babcock, M Barratt PA Unavailable Unavailable Babcock, M Barratt PA Unavailable Unavailable Babcock, M Barratt PA Unavailable Unavailable Babcock, M Barratt PA Unavailable Unavailable Babcock, M Barratt PA Unavailable Unavailable Babcock, M Barratt PA Unavailable Unavailable Babcock, M Barratt PA Unavailable Unavailable Babcock, M Barratt PA Unavailable Unavailable Babcock, M Barratt PA Unavailable Unavailable Babcock, M Barratt PA Unavailable Unavailable Babcock, M Barratt PA Unavailable Unavailable Babcock, M Barratt PA Unavailable Unavailable Babcock, M Barratt PA Unavailable Unavailable Babcock, M Barratt PA Unavailable Unavailable Babcock, M Barratt PA Unavailable Unavailable Babcock, M Barratt PA Unavailable Unavailable Babcock, M Barratt PA Unavailable Unavailable Babcock, M Barratt PA Unavailable Unavailable Babcock, M Barratt PA Unavailable Unavailable Babcock, M Barratt PA Unavailable Unavailable Babcock, M Barratt PA Unavailable Unavailable Babcock, M Barratt PA Unavailable Unavailable Babcock, M Barratt PA Unavailable Unavailable Babcock, M Barratt PA Unavailable Unavailable Babcock, M Barratt PA Unavailable Unavailable Babcock, M Barratt PA Unavailable Unavailable Babcock, M Barratt PA Unavailable Unavailable Babcock, M Barratt PA Unavailable Unavailable Babcock, M Barratt PA Unavailable Unavailable Babcock, M Barratt PA Unavailable Unavailable Babcock, M Barratt PA Unavailable Unavailable Babcock, M Barratt PA Unavailable Unavailable Babcock, M Barratt PA Unavailable Unavailable Babcock, M Barratt PA Unavailable Unavailable Babcock, M Barratt PA Unavailable Unavailable Babcock, M Barratt PA Unavailable Unavailable Babcock, M Barratt PA Unavailable Unavailable THOMAS E DEVIN GOMEZ Unavailable Unavailable THOMAS E DEVIN GOMEZ Unavailable Unavailable THOMAS E DEVIN GOMEZ Unavailable Unavailable THOMAS E DEVIN GOMEZ Unavailable Unavailable THOMAS, E DEVIN GOMEZ Unavailable Unavailable THOMAS E DEVIN GOMEZ Unavailable Unavailable THOMAS, E DEVIN GOMEZ Unavailable Unavailable THOMAS, E DEVIN GOMEZ Unavailable Unavailable THOMAS, E DEVIN GOMEZ Unavailable Unavailable THOMAS E DEVIN GOMEZ Unavailable Unavailable THOMAS E DEVIN GOMEZ Unavailable Unavailable THOMAS, E DEVIN GOMEZ Unavailable Unavailable THOMAS, E DEVIN GOMEZ Unavailable Unavailable THOMAS, E DEVIN GOMEZ Unavailable Unavailable THOMAS, E DEVIN GOMEZ Unavailable Unavailable THOMAS, E DEVIN GOMEZ Unavailable Unavailable THOMAS E DEVIN GOMEZ Unavailable Unavailable THOMAS E DEVIN GOMEZ Unavailable Unavailable THOMAS E DEVIN GOMEZ Unavailable Unavailable THOMAS, E DEVIN GOMEZ Unavailable Unavailable THOMAS E DEVIN GOMEZ Unavailable Unavailable THOMAS E DEVIN GOMEZ Unavailable Unavailable THOMAS E DEVIN GOMEZ Unavailable Unavailable THOMAS E DEVIN GOMEZ Unavailable Unavailable THOMAS E DEVIN GOMEZ Unavailable Unavailable THOMAS E DEVIN GOMEZ Unavailable Unavailable THOMAS E DEVIN GOMEZ Unavailable Unavailable THOMAS E DEVIN GOMEZ Unavailable Unavailable THOMAS E DEVIN GOMEZ Unavailable Unavailable THOMAS E DEVIN GOMEZ Unavailable Unavailable THOMAS E DEVIN GOMEZ Unavailable Unavailable THOMAS E DEVIN GOMEZ Unavailable Unavailable THOMAS E DEVIN GOMEZ Unavailable Unavailable THOMAS E DEVIN GOMEZ Unavailable Unavailable THOMAS E DEVIN GOMEZ Unavailable Unavailable THOMAS E DEVIN GOMEZ Unavailable Unavailable THOMAS E DEVIN GOMEZ Unavailable Unavailable THOMAS E DEVIN GOMEZ Unavailable Unavailable THOMAS E DEVIN GOMEZ Unavailable Unavailable THOMAS E DEVIN GOMEZ Unavailable Unavailable THOMAS E DEVIN GOMEZ Unavailable Unavailable THOMAS E DEVIN GOMEZ Unavailable Unavailable THOMAS E DEVIN GOMEZ Unavailable Unavailable THOMAS E DEVIN GOMEZ Unavailable Unavailable THOMAS E DEVIN GOMEZ Unavailable Unavailable THOMAS E DEVIN GOMEZ Unavailable Unavailable THOMAS E DEVIN GOMEZ Unavailable Unavailable THOMAS E DEVIN GOMEZ Unavailable Unavailable THOMAS E DEVIN GOMEZ Unavailable Unavailable THOMASDaniela MD Unavailable Unavailable THOMAS, Daniela BELTRAN MD Unavailable Unavailable THOMAS, E DEVIN GOMEZ Unavailable Unavailable THOMAS, E DEVIN GOMEZ Unavailable Unavailable THOMAS, E DEVIN GOMEZ Unavailable Unavailable THOMAS, E DEVIN GOMEZ Unavailable Unavailable THOMAS, E DEVIN GOMEZ Unavailable Unavailable THOMAS, E DEVIN GOMEZ Unavailable Unavailable Re-disclosure Warning The records that you are about to access may contain information from federally-assisted alcohol or drug abuse programs. If such information is present, then the following federally mandated warning applies: This information has been disclosed to you from records protected by federal confidentiality rules (42 CFR part 2). The federal rules prohibit you from making any further disclosure of this information unless further disclosure is expressly permitted by the written consent of the person to whom it pertains or as otherwise permitted by 42 CFR part 2. A general authorization for the release of medical or other information is NOT sufficient for this purpose. The Federal rules restrict any use of the information to criminally investigate or prosecute any alcohol or drug abuse patient.The records that you are about to access may contain highly sensitive health information, the redisclosure of which is protected by Article 27-F of the [facility] Public Health law. If you continue you may have access to information: Regarding HIV / AIDS; Provided by facilities licensed or operated by the [facility] Office of Mental Health; or Provided by the [facility] Office for People With Developmental Disabilities. If such information is present, then the following [facility] mandated warning applies: This information has been disclosed to you from confidential records which are protected by state law. State law prohibits you from making any further disclosure of this information without the specific written consent of the person to whom it pertains, or as otherwise permitted by law. Any unauthorized further disclosure in violation of state law may result in a fine or fci sentence or both. A general authorization for the release of medical or other information is NOT sufficient authorization for further disc losure. Allergies and Adverse Reactions Type Description Substance Reaction Status Data Source(s ) Latex (for allergy use only) Latex (for allergy use only) La varghese (for allergy use only) rash, hives Active eCW1 ([facility]) Latex (for allergy use only) Latex (for allergy use only) La varghese (for allergy use only) rash, hives Active eCW1 ([facility]) Latex (for allergy use only) Latex (for allergy use only) La varghese (for allergy use only) rash, hives Active eCW1 ([facility]) Latex (for allergy use only) Latex (for allergy use only) La varghese (for allergy use only) rash, hives Active eCW1 ([facility]) Latex (for allergy use only) Latex (for allergy use only) La varghese (for allergy use only) rash, hives Active eCW1 ([facility]) Latex (for allergy use only) Latex (for allergy use only) La varghese (for allergy use only) rash, hives Active eCW1 ([facility]) Family History Family Member Name Family Member Gender Family Member Status Date o f Status Description Data Source(s) Unknown Unknown Problem [facility] Unknown Unknown Problem [facility] Unknown Unknown Problem [facility] ) Unknown Unknown Problem MED[facility] ([facility] Unknown [facility] Problem [facility] ) Unknown Unknown Problem [facility] ([facility] ) Unknown Unknown Problem MED[facility] ([facility], ) Unknown Unknown Problem MEDENT ([facility], ) Encounters Encounter Providers Location Date Indications Data Source(s ) Unknown [address] [facility] [place] [address] 09/19/2020 12:00:00 AM EST eCW1 [facility]) Unknown [address] [facility] [place] [address] 09/19/2020 12:00:00 AM EST eCW1 ([facility]) Outpatient [address] [facility] [place] [address] 09/02/2020 12:00:00 AM EST eCW1 ([facility]) Unknown [address] [facility] [place] [address] 09/02/2020 12:00:00 AM EST eCW1 ([facility]) Unknown [address] [facility] [place] [address] 07/29/2020 12:00:00 AM EST eCW1 [facility]) [place]patient [address] [facility] [address] 07/02/2020 12:00:00 AM EDT eCW1 ([facility]) Unknown [address] [facility] [address] 07/02/2020 12:00:00 AM EDT eCW1 ([facility]) Outpatient Attender: Theron LANGE Physical Therapy 10:00:00 AM EDT MEDENT ([facility]) Outpatient [address] [facility] [address] 06/13/2020 12:00:00 AM EDT eCW1 ([facility]) Unknown [address] [facility] [address] 06/12/2020 12:00:00 AM EDT eCW1 ([facility]) Unknown [address] [facility] [address] 06/12/2020 12:00:00 AM EDT eCW1 ([facility]) Outpatient [address] [facility] [place] [address] 06/11/2020 12:00:00 AM EDT eCW1 ([facility]) Outpatient [address] [facility] [place] [address] 06/04/2020 12:00:00 AM EDT eCW1 ([facility]) Outpatient Attender: Theron LANGE Physical Therapy 03:45:00 PM EDT MEDENT ([facility]) Outpatient [address] [facility] [place] [address] 03/18/2020 12:00:00 AM EDT eCW1 ([facility]) [facility] [address] [place] [address] 02/04/2020 12:00:00 AM EDT eCW1 ([facility]) [facility] [address] [place] [address] 01/25/2020 12:00:00 AM EDT eCW1 ([facility]) [facility] [address] [facility] Y [address] 12/17/2019 12:00:00 AM EDT eCW1 ([facility]) [facility] [address] [place] [phone] 12/14/2019 12:00:00 AM EDT eCW1 ([facility]) Outpatient Attender: Theron LANGE Physical Therapy 10:00:00 AM EDT MEDENT ([facility]) [facility] [place] [address] [facility] [address] 12/05/2019 12:00:00 AM EDT eCW1 ([facility]) Outpatient [address] [place] [address] 11/29/2019 12:00:00 AM EDT eCW1 ([facility]) [facility] [address] [place] [address] [place] [address] 11/26/2019 12:00:00 AM EDT eCW1 ([facility]) [facility] [place] [address] [facility] Y [address] 11/26/2019 12:00:00 AM EDT eCW1 ([facility]) [facility] [place] [address] [facility] Y [address] 11/09/2019 12:00:00 AM EST eCW1 ([facility]) [facility] [place] [address] [place] [address] Y [address] 11/09/2019 12:00:00 AM EST eCW1 ([facility]) [address] [address] 11/07/2019 12:00:00 AM EST eCW1 ([facility]) [facility] [address] [place] [address] 10/26/2019 12:00:00 AM EST eCW1 ([facility]) [facility] [address] [place] [address] 10/09/2019 12:00:00 AM EST eCW1 ([facility]) [address] [address] 10/04/2019 12:00:00 AM EST [facility]CW1 [facility] Outpatient Referrer: Theron LANGE 10/02/2019 12:05:0 0 PM EST [facility] [address] [place] [address] 09/28/2019 12:00:00 AM EST eCW1 ([facility]) [facility] [address] [place] [address] 09/20/2019 12:00:00 AM EST eCW1 [facility] [address] [address] 09/17/2019 12:00:00 AM EST [facility]CW1 [facility] [place] [address] [place] [address] 09/17/2019 12:00:00 AM EST eCW1 ([facility] [address] [place] [address] 09/13/2019 12:00:00 AM EST eCW1 ([facility]) [address] [address] 09/13/2019 12:00:00 AM EST eCW1 [facility]) Outpatient Attender: DEVIN THOMAS MD Main Office 09/10/2019 11:45:00 AM EST MEDENT ([facility]) [address] [address] 09/06/2019 12:00:00 AM EST eCW1 ([facility]) [address] [address] 08/23/2019 12:00:00 AM EST eCW1 ([facility]) [address] [place] [address] 08/15/2019 12:00:00 AM EST eCW1 ([facility]) [facility] [address] [place] [address] 08/13/2019 12:00:00 AM EST eCW1 ([facility]) [facility] [address] [place] [address] 07/31/2019 12:00:00 AM EST eCW1 ([facility]) Immunizations Vaccine Date Status Description Data Source(s) pneumococcal polysaccharide PPV23 06/11/2020 05:35:00 PM EDT comple sarah eCW1 ([facility]) pneumococcal polysaccharide PPV23 06/11/2020 05:35:00 PM EDT comple sarah eCW1 ([facility]) pneumococcal polysaccharide PPV23 06/11/2020 05:35:00 PM EDT comple sarah eCW1 ([facility]) pneumococcal polysaccharide PPV23 06/11/2020 05:35:00 PM EDT comple sarah eCW1 ([facility]) pneumococcal polysaccharide PPV23 06/11/2020 05:35:00 PM EDT comple sarah eCW1 ([facility]) pneumococcal polysaccharide PPV23 06/11/2020 05:35:00 PM EDT comple sarah eCW1 ([facility]) pneumococcal polysaccharide PPV23 06/11/2020 05:35:00 PM EDT comple sarah eCW1 ([facility]) pneumococcal polysaccharide PPV23 06/11/2020 05:35:00 PM EDT comple sarah eCW1 ([facility]) pneumococcal polysaccharide PPV23 06/11/2020 05:35:00 PM EDT comple sarah eCW1 ([facility]) pneumococcal polysaccharide PPV23 06/11/2020 05:35:00 PM EDT comple sarah eCW1 ([facility]) pneumococcal polysaccharide PPV23 06/11/2020 05:35:00 PM EDT comple sarah eCW1 ([facility]) pneumococcal polysaccharide PPV23 06/11/2020 05:35:00 PM EDT comple sarah eCW1 ([facility]) influenza, recombinant, quadrIvalent,injectable, prese rvative free 06/11/2020 05:34:00 PM EDT completed eCW1 ([facility]) influenza, recombinant, quadrIvalent,injectable, prese rvative free 06/11/2020 05:34:00 PM EDT completed eCW1 ([facility]) influenza, recombinant, quadrIvalent,injectable, prese rvative free 06/11/2020 05:34:00 PM EDT completed eCW1 ([facility]) influenza, recombinant, quadrIvalent,injectable, prese rvative free 06/11/2020 05:34:00 PM EDT completed eCW1 ([facility]) influenza, recombinant, quadrIvalent,injectable, prese rvative free 06/11/2020 05:34:00 PM EDT completed eCW1 ([facility]) influenza, recombinant, quadrIvalent,injectable, prese rvative free 06/11/2020 05:34:00 PM EDT completed eCW1 ([facility]) influenza, recombinant, quadrIvalent,injectable, prese rvative free 06/11/2020 05:34:00 PM EDT completed eCW1 ([facility]) influenza, recombinant, quadrIvalent,injectable, prese rvative free 06/11/2020 05:34:00 PM EDT completed eCW1 ([facility]) influenza, recombinant, quadrIvalent,injectable, prese rvative free 06/11/2020 05:34:00 PM EDT completed eCW1 ([facility]) influenza, recombinant, quadrIvalent,injectable, prese rvative free 06/11/2020 05:34:00 PM EDT completed eCW1 ([facility]) influenza, recombinant, quadrIvalent,injectable, prese rvative free 06/11/2020 05:34:00 PM EDT completed eCW1 ([facility]) influenza, recombinant, quadrIvalent,injectable, prese rvative free 06/11/2020 05:34:00 PM EDT completed eCW1 ([facility]) Medications Medication Brand Name Start Date Product Form Dose Route Admi nistrative Instructions Pharmacy Instructions Status Indications Reaction Description Data Source(s) Sulfacetamide Sodium 100 MG/ML Ophthalmic Solution [Bl eph-10] Bleph-10 10 % Bleph-10 10 % 09/02/2020 12:00:00 AM EST 2.0 {drops_into_affected_eye} active Bleph-10 10 % eCW1 ([facility]) Sulfacetamide Sodium 100 MG/ML Ophthalmic Solution [Bl eph-10] Bleph-10 10 % Bleph-10 10 % 09/02/2020 12:00:00 AM EST 2.0 {drops_into_affected_eye} active Bleph-10 10 % eCW1 ([facility]) Sulfacetamide Sodium 100 MG/ML Ophthalmic Solution [Bl eph-10] Bleph-10 10 % Bleph-10 10 % 09/02/2020 12:00:00 AM EST 2.0 {drops_into_affected_eye} active Bleph-10 10 % eCW1 ([facility]) Sulfacetamide Sodium 100 MG/ML Ophthalmic Solution [Bl eph-10] Bleph-10 10 % Bleph-10 10 % 09/02/2020 12:00:00 AM EST 2.0 {drops_into_affected_eye} active Bleph-10 10 % eCW1 ([facility]) Omeprazole 20 MG Delayed Release Oral Capsule Omeprazole 20 MG 06/13/2020 12:00:00 AM EDT suspended Omepr azole 20 MG eCW1 ([facility]) Ondansetron 4 MG Oral Tablet [Zofran] Zofran 4 MG Zofran 4 M G 06/13/2020 12:00:00 AM EDT 1.0 {tablet} active Zo yeison 4 MG eCW1 ([facility]) Ondansetron 4 MG Oral Tablet [Zofran] Zofran 4 MG Zofran 4 M G 06/13/2020 12:00:00 AM EDT 1.0 {tablet} active Zo yeison 4 MG eCW1 ([facility]) Omeprazole 20 MG Delayed Release Oral Capsule Omeprazole 20 MG 06/13/2020 12:00:00 AM EDT active Omeprazo le 20 MG eCW1 ([facility]) Ondansetron 4 MG Oral Tablet [Zofran] Zofran 4 MG Zofran 4 M G 06/13/2020 12:00:00 AM EDT 1.0 {tablet} active Zo yeison 4 MG eCW1 ([facility]) Ondansetron 4 MG Oral Tablet [Zofran] Zofran 4 MG Zofran 4 M G 06/13/2020 12:00:00 AM EDT 1.0 {tablet} active Zo yeison 4 MG eCW1 ([facility]) Ondansetron 4 MG Oral Tablet [Zofran] Zofran 4 MG Zofran 4 M G 06/13/2020 12:00:00 AM EDT 1.0 {tablet} suspended Zofran 4 MG eCW1 ([facility]) Ondansetron 4 MG Oral Tablet [Zofran] Zofran 4 MG Zofran 4 M G 06/13/2020 12:00:00 AM EDT 1.0 {tablet} suspended Zofran 4 MG eCW1 ([facility]) Omeprazole 20 MG Delayed Release Oral Capsule Omeprazole 20 MG 06/13/2020 12:00:00 AM EDT active Omeprazo le 20 MG eCW1 ([facility]) Omeprazole 20 MG Delayed Release Oral Capsule Omeprazole 20 MG 06/13/2020 12:00:00 AM EDT active Omeprazo le 20 MG eCW1 ([facility]) Omeprazole 20 MG Delayed Release Oral Capsule Omeprazole 20 MG 06/13/2020 12:00:00 AM EDT active Omeprazo le 20 MG eCW1 ([facility]) Omeprazole 20 MG Delayed Release Oral Capsule Omeprazole 20 MG 06/13/2020 12:00:00 AM EDT suspended Omepr azole 20 MG eCW1 ([facility]) Ondansetron 4 MG Oral Tablet [Zofran] Zofran 4 MG Zofran 4 M G 06/13/2020 12:00:00 AM EDT 1.0 {tablet} active Zo yeison 4 MG eCW1 ([facility]) Omeprazole 20 MG Delayed Release Oral Capsule Omeprazole 20 MG 06/13/2020 12:00:00 AM EDT active Omeprazo le 20 MG eCW1 ([facility]) Omeprazole 20 MG Delayed Release Oral Capsule Omeprazole 20 MG 06/13/2020 12:00:00 AM EDT active Omeprazo le 20 MG eCW1 ([facility]) Omeprazole 20 MG Delayed Release Oral Capsule Omeprazole 20 MG 06/13/2020 12:00:00 AM EDT active Omeprazo le 20 MG eCW1 ([facility]) Ondansetron 4 MG Oral Tablet [Zofran] Zofran 4 MG Zofran 4 M G 06/13/2020 12:00:00 AM EDT 1.0 {tablet} suspended Zofran 4 MG eCW1 ([facility]) Ondansetron 4 MG Oral Tablet [Zofran] Zofran 4 MG Zofran 4 M G 06/13/2020 12:00:00 AM EDT 1.0 {tablet} active Zo yeison 4 MG eCW1 ([facility]) Ondansetron 4 MG Oral Tablet [Zofran] Zofran 4 MG Zofran 4 M G 06/13/2020 12:00:00 AM EDT 1.0 {tablet} suspended Zofran 4 MG eCW1 ([facility]) Omeprazole 20 MG Delayed Release Oral Capsule Omeprazole 20 MG 06/13/2020 12:00:00 AM EDT active Omeprazo le 20 MG eCW1 ([facility]) Ondansetron 4 MG Oral Tablet [Zofran] Zofran 4 MG Zofran 4 M G 06/13/2020 12:00:00 AM EDT 1.0 {tablet} active Zo yeison 4 MG eCW1 ([facility]) Omeprazole 20 MG Delayed Release Oral Capsule Omeprazole 20 MG 06/13/2020 12:00:00 AM EDT suspended Omepr azole 20 MG eCW1 ([facility]) Omeprazole 20 MG Delayed Release Oral Capsule Omeprazole 20 MG 06/13/2020 12:00:00 AM EDT suspended Omepr azole 20 MG eCW1 (Formerly [facility]) Ondansetron 4 MG Oral Tablet [Zofran] Zofran 4 MG Zofran 4 M G 06/13/2020 12:00:00 AM EDT 1.0 {tablet} active Zo yeison 4 MG eCW1 (Formerly [facility]) Blood Glucose Test - Blood Glucose Test - 06/11/2020 12:00:00 AM EDT suspended Blood Glucose Test - eCW1 ([facility]) Glucometer UNK 06/11/2020 12:00:00 AM EDT active Glucometer eCW1 (Formerly [facility]) Glucometer UNK 06/11/2020 12:00:00 AM EDT active Glucometer eCW1 (Formerly [facility]) Lancets - Lancets - 06/11/2020 12:00:00 AM EDT act elisabeth Lancets - eCW1 (Formerly [facility]) Blood Glucose Test - Blood Glucose Test - 06/11/2020 12:00:00 AM EDT active Blood Glucose Test - eCW1 ([facility]) Lancets - Lancets - 06/11/2020 12:00:00 AM EDT act elisabeth Lancets - eCW1 ([facility]ly [facility]) Lancets - Lancets - 06/11/2020 12:00:00 AM EDT act elisabeth Lancets - eCW1 ([facility]ly [facility]) Lancets - Lancets - 06/11/2020 12:00:00 AM EDT act elisabeth Lancets - eCW1 ([facility]ly [facility]) Glucometer UNK 06/11/2020 12:00:00 AM EDT active Glucometer eCW1 ([facility]ly [facility]) Lancets - Lancets - 06/11/2020 12:00:00 AM EDT suspended Lancets - eCW1 ([facility]ly [facility]) Blood Glucose Test - Blood Glucose Test - 06/11/2020 12:00:00 AM EDT active Blood Glucose Test - eCW1 ([facility]) Blood Glucose Test - Blood Glucose Test - 06/11/2020 12:00:00 AM EDT active Blood Glucose Test - eCW1 ([facility]) Lancets - Lancets - 06/11/2020 12:00:00 AM EDT act elisabeth Lancets - eCW1 ([facility]ly [facility]) Lancets - Lancets - 06/11/2020 12:00:00 AM EDT suspended Lancets - eCW1 ([facility]ly [facility]) Glucometer UNK 06/11/2020 12:00:00 AM EDT active Glucometer eCW1 ([facility]ly [facility]) Glucometer UNK 06/11/2020 12:00:00 AM EDT suspend ed Glucometer eCW1 ([facility]) Glucometer UNK 06/11/2020 12:00:00 AM EDT suspend ed Glucometer eCW1 ([facility]) Lancets - Lancets - 06/11/2020 12:00:00 AM EDT suspended Lancets - eCW1 ([facility]) Blood Glucose Test - Blood Glucose Test - 06/11/2020 12:00:00 AM EDT active Blood Glucose Test - eCW1 ([facility]) Blood Glucose Test - Blood Glucose Test - 06/11/2020 12:00:00 AM EDT active Blood Glucose Test - eCW1 ([facility]) Glucometer UNK 06/11/2020 12:00:00 AM EDT active Glucometer eCW1 ([facility]) Blood Glucose Test - Blood Glucose Test - 06/11/2020 12:00:00 AM EDT active Blood Glucose Test - eCW1 ([facility]) Blood Glucose Test - Blood Glucose Test - 06/11/2020 12:00:00 AM EDT suspended Blood Glucose Test - eCW1 ([facility]) Glucometer UNK 06/11/2020 12:00:00 AM EDT suspend ed Glucometer eCW1 ([facility]) Blood Glucose Test - Blood Glucose Test - 06/11/2020 12:00:00 AM EDT suspended Blood Glucose Test - eCW1 ([facility]) Blood Glucose Test - Blood Glucose Test - 06/11/2020 12:00:00 AM EDT suspended Blood Glucose Test - eCW1 ([facility]) Blood Glucose Test - Blood Glucose Test - 06/11/2020 12:00:00 AM EDT active Blood Glucose Test - eCW1 ([facility]) Blood Glucose Test - Blood Glucose Test - 06/11/2020 12:00:00 AM EDT active Blood Glucose Test - eCW1 ([facility]) Lancets - Lancets - 06/11/2020 12:00:00 AM EDT act elisabeth Lancets - eCW1 ([facility]) Lancets - Lancets - 06/11/2020 12:00:00 AM EDT act elisabeth Lancets - eCW1 ([facility]ly [facility]) Glucometer UNK 06/11/2020 12:00:00 AM EDT suspend ed Glucometer eCW1 ([facility]) Glucometer UNK 06/11/2020 12:00:00 AM EDT active Glucometer eCW1 ([facility]) Lancets - Lancets - 06/11/2020 12:00:00 AM EDT suspended Lancets - eCW1 ([facility]) Lancets - Lancets - 06/11/2020 12:00:00 AM EDT act elisabeth Lancets - eCW1 ([facility]) Glucometer UNK 06/11/2020 12:00:00 AM EDT active Glucometer eCW1 ([facility]ly [facility]) Glucometer UNK 06/11/2020 12:00:00 AM EDT active Glucometer eCW1 ([facility]) Amoxicillin 500 MG Oral Tablet Amoxicillin 500 MG 11/26/2019 12:00: 00 AM EDT active 1 tablet eCW1 ([facility]) Amoxicillin 500 MG Oral Tablet Amoxicillin 500 MG 11/26/2019 12:00: 00 AM EDT suspended 1 tablet eCW1 ([facility]) Amoxicillin 500 MG Oral Tablet Amoxicillin 500 MG 11/26/2019 12:00: 00 AM EDT 1.0 {tablet} suspended Amoxicillin 500 M G eCW1 ([facility]ly [facility]) Amoxicillin 500 MG Oral Tablet Amoxicillin 500 MG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
--- OUTSIDE RECORDS SUMMARY | 2020-09-25 11:58 | CCD ---
Author Author [facility] Organization 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 Role Phone Raya Abdi Unavailable PROBLEMS Type Condition ICD9-CM Code [id number] Code Onset Dates Condition S tatus SNOMED Code Notes Problem Obesity, unspecified E66.9 Active 286625837 Problem Type 2 diabetes mellitus with other specified complication E11.69 Active 15996742 Problem Lumbosacral radiculopathy M54.17 Active 260919 7 Problem Protrusion of intervertebral disc of lumbosacral region M51.27 Active 79490902 Problem Depression, unspecified depression type F32.9 Active 72094596 Problem Intervertebral disc disorders with radiculopathy , 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 [id number] ALLERGIES Allergen (clinical drug ingredient) Drug/Non Drug Allergy do cumented on EMR Reaction Allergy Type Onset Date Status Latex (for allergy use only) rash, hives Drug Allergy Active ENCOUNTERS from 1975 to 2020-06-26 Encounter Location Date Provider Diagnosis [address] [place] [address] Jun, 20 Raya Merary-Tartell Nausea and vomiting, intractability of v omiting not specified, unspecified vomiting type R11.2 and Snoring R06.83 IMMUNIZATIONS Vaccine Route Administration Date Status Influenza [...] Education Language: Question Answer Notes Languages spoken: Estonian Amish: Question Answer Notes Amish 05 Tenriism Sexual Hx: Question Answer Notes Had sex [...] FOR REFERRAL No Information VITAL SIGNS Weight 221 lbs Jun, Height 67 in Jun, BMI 34.61 kg/m2 Jun, Heart Rate 88 /min Jun, Respiratory Rate 18 /min Jun, Temperature 96.1 degrees Fahrenheit Jun, Oximetry 98 Jun, Blood pressure systolic 128 mm Hg Jun, Blood pressure diastolic 72 mm Hg Jun, MEDICATIONS Medication SIG (Take, Route, Frequency, Duration) Start Date En d Date Status Tizanidine HCl 4 MG TAKE ONE CAPSULE BY MOUTH EV ASHLEY 8 HOURS NEEDED MAXIMUM DAILY DOSE 4 TABLETS Oral for 20 Activ e Zofran 4 MG 1 tablet Orally every 4 hours as needed for 10 d ay(s) Jun, Active Glucometer as directed topically Daily for 30 Days Jun, Active Centrum Silver - as directed Orally Daily Active Blood Glucose Test - as directed In Vitro tid for 30 Days Jun, 020 Active Omeprazole 20 MG 1 capsule 30 minutes before morning meal Orally Once a day for 30 day(s) Jun, Active Lancets - as directed topically tid for 30 Days Jun, Active PROCEDURES Procedure Date Ordered Result Body Site URINE TEST 2020-06-13 N/A RESULTS No Results REASON FOR VISIT Vomiting x several weeks MEDICAL (GENERAL) HISTORY Type Description Date Medical [...] mellitus type 2 (06/2020) Surgical History No Surgical history information Hospitalization History whooping cough and pneumonia as baby Hospitalization History mild concussion age 10 Hospitalization History child 1993, 1996, 2013 , 2014 Goals Section No Information Health Concerns No Information MEDICAL EQUIPMENT No Information MENTAL STATUS No Information FUNCTIONAL STATUS No Information ASSESSMENTS Encounter Date Diagnosis Notes Jun, Snoring (ICD-10 - R06.83) Jun, Nausea and vomiting, intract ability of vomiting not specified, unspecified vomiting type (ICD-10 - R11.2) PLAN OF TREATMENT Medication Medication Name Sig Start Date Stop Date Zofran 4 MG 1 tablet Orally every 4 hours as needed for 10 d ay(s) Jun, Omeprazole 20 MG 1 capsule 30 minutes before morning meal Orally Once a day for 30 day(s) Jun, Treatment Notes Assessment Notes Clinical Notes Nausea and vomiting, intractability of v omiting not specified, unspecified vomiting type Zofran and omeprazole for sy mptomatic relief. Referred to GI. Snoring Referred for a sleep study. Next Appt Details 3-4 weeks Reason: Provider Name:Raya Abdi, 2020-07-02 09:30:00 AM, [address], [place], [address], Insurance Providers Payer Name Payer Address Payer Phone Insured Name Patient Relati onship to Insured Coverage Start Date Coverage End Date [employer] DEPT [address] [place] [phone] HYUN SOSA self
--- OUTSIDE RECORDS SUMMARY | 2020-09-25 11:58 | CCD ---
Author Author [facility] Organization [facility] Address Unknown Phone Unavailable Care Team Providers Care Personalized Living Manager Nurse Name Role Phone Trinidad Raya Unavailable PROBLEMS Type Condition ICD9-CM Code [id number] Code Onset Dates Condition S tatus SNOMED Code Notes Problem Obesity, unspecified E66.9 Active 410751802 Problem Type 2 diabetes mellitus with other specified complication E11.69 Active 91997565 Problem Lumbosacral radiculopathy M54.17 Active 825257 7 Problem Protrusion of intervertebral disc of lumbosacral region M51.27 Active 82982200 Problem Depression, unspecified depression type F32.9 Active 69139899 Problem Intervertebral disc disorders with radiculopathy , 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 472239297550693 ALLERGIES Allergen (clinical drug ingredient) Drug/Non Drug Allergy do cumented on EMR Reaction Allergy Type Onset Date Status Latex (for allergy use only) rash, hives Drug Allergy Active ENCOUNTERS from 1975 to 2020-06-26 Encounter Location Date Provider Diagnosis [address] [place] [address] Jun, 20 Raya Abdi Type 2 diabetes mellitus with other spec ified complication E11.69 ; Obesity, unspecified E66.9 and Encounter for immunization Z23 IMMUNIZATIONS Vaccine Route Administration Date Status Influenza [...] Education Language: Question Answer Notes Languages spoken: Niuean Confucianist: Question Answer Notes Confucianist 05 Mormonism Sexual Hx: Question Answer Notes [...] FOR REFERRAL No Information VITAL SIGNS Weight 223.6 lbs Jun, Height 67 in Jun, BMI 35.02 kg/m2 Jun, Heart Rate 101 /min Jun, Respiratory Rate 18 /min Jun, Temperature 96.9 degrees Fahrenheit Jun, Oximetry 99 Jun, Blood pressure systolic 120 mm Hg Jun, Blood pressure diastolic 80 mm Hg Jun, MEDICATIONS Medication SIG (Take, [...] PROCEDURES Procedure Date Ordered Result Body Site Immunization: Flublok Quadrivalent (18 years & older) 0.5mL IM (Influenza) 2020-06-11 N/A Immunization: Pneumovax 23 0.5mL IM (Pneumococcal) 2020-06-11 N/A RESULTS No Results REASON FOR VISIT 1 week lab review MEDICAL (GENERAL) HISTORY Type Description Date Medical [...] Information ASSESSMENTS Encounter Date Diagnosis Notes Jun, Encounter for immunization (ICD-10 - Z23 ) Jun, Obesity, unspecified (ICD-10 - E66.9) Jun, Type 2 diabetes mellitus wit h other specified complication (ICD-10 - E11.69) PLAN OF TREATMENT Medication Medication Name Sig Start Date Stop Date Zofran 4 MG 1 tablet Orally every 4 hours as needed for 10 d ay(s) Jun, Omeprazole 20 MG 1 capsule 30 minutes before morning meal Orally Once a day for 30 day(s) Jun, Treatment Notes Assessment Notes Clinical Notes Type 2 diabetes mellitus with other specified complication Discussed diet and lifestyle modification. Referred for diabetic eye exam.Patient education: Type 2 diabetes (The Basics)Patient education: Type 2 diabetes and diet (Beyond the Basics)Patient education: The ABCs of diabetes (The Basics) Obesity, unspecified Discussed diet and lifestyle modification. Encounter for immunization Immunizations reviewed. Any questions were answered. Patient agreed to immunization, and received vaccine in office today. Future Test Test Name Order Date HEMOGLOBIN A1c [id number] Next Appt Details 2-3 weeks Reason:f/u new DM Provider Name:Raya Abdi 2020-07-02 09:30:00 AM, [address], [place], [address], Follow Up:2-3 weeksf/u new DM Insurance Providers Payer Name Payer Address Payer Phone Insured Name Patient Relati onship to Insured Coverage Start Date Coverage End Date [facility] CLAIM[facility] DEPT [address] [facility] [phone] HYUN SOSA self
--- OUTSIDE RECORDS SUMMARY | 2020-09-25 11:58 | CCD ---
Author Author [facility] Organization [facility] Address Unknown Phone Unavailable Care Team Providers Care Box Cutter Name Role Phone Raya Abdi Unavailable PROBLEMS Type Condition ICD9-CM Code [id number] Code Onset Dates Condition S tatus SNOMED Code Notes Problem Obesity, unspecified E66.9 Active 608066963 Problem Type 2 diabetes mellitus with other specified complication E11.69 Active 12747338 Problem Lumbosacral radiculopathy M54.17 Active 572501 7 Problem Protrusion of intervertebral disc of lumbosacral region M51.27 Active 61149300 Problem Depression, unspecified depression type F32.9 Active 12831710 Problem Intervertebral disc disorders with radiculopathy , 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 547907781170882 ALLERGIES Allergen (clinical drug ingredient) Drug/Non Drug Allergy do cumented on EMR Reaction Allergy Type Onset Date Status Latex (for allergy use only) rash, hives Drug Allergy Active ENCOUNTERS from 1975 to 2020-07-20 Encounter Location Date Provider Diagnosis [address] [place] [address] Jun, 20 Raya Merary-Tartell Nausea and vomiting, intractability of v omiting not specified, unspecified vomiting type R11.2 and Type 2 diabetes mellitus with other specified complication E11.69 IMMUNIZATIONS Vaccine Route Administration Date Status Influenza [...] Education Language: Question Answer Notes Languages spoken: Welsh Baptism: Question Answer Notes Baptism 05 Rastafari Sexual Hx: Question Answer Notes Had sex [...] FOR REFERRAL No Information VITAL SIGNS Weight 217.8 lbs Jun, Height 67 in Jun, BMI 34.11 kg/m2 Jun, Heart Rate 117 /min Jun, Respiratory Rate 18 /min Jun, Temperature 98.6 degrees Fahrenheit Jun, Oximetry 99 Jun, Blood pressure systolic 130 mm Hg Jun, Blood pressure diastolic 82 mm Hg Jun, MEDICATIONS Medication SIG (Take, Route, Frequency, Duration) Start Date En d Date Status Omeprazole 20 MG 1 capsule 30 minutes before morning meal Orally Once a day for 30 day(s) Jun, Active Blood Glucose Test - as directed In Vitro tid for 30 Days Jun, 2 020 Active Tizanidine HCl 4 MG TAKE [...] Information RESULTS No Results REASON FOR VISIT 3 week med follow up MEDICAL (GENERAL) HISTORY Type Description Date Medical [...] Information ASSESSMENTS Encounter Date Diagnosis Notes Jun, Type 2 diabetes mellitus wit h other specified complication (ICD-10 - E11.69) Jun, Nausea and vomiting, intract ability of vomiting not specified, unspecified vomiting type (ICD-10 - R11.2) PLAN OF TREATMENT Treatment Notes Assessment Notes Clinical Notes Nausea and vomiting, intractability of v omiting not specified, unspecified vomiting type We will followup on her GI r eferral, but overall she seems to feel much better than last visit. "I have energy now." She is eating a regular, if diabetic, diet. Type 2 diabetes mellitus with other specified complication She bought a diabetic cookbook and is carefully watching what she is eating. Reports blood sugars well controlled, and feeling better. Next Appt Details 3 Months Reason:f/u Provider Name:Raya Abdi, 2020-10-02 09:30:00 AM, [address], [place], [address], Follow Up:3 Monthsf/u Insurance Providers Payer Name Payer Address Payer Phone Insured Name Patient Relati onship to Insured Coverage Start Date Coverage End Date [employer] DEPT [address] [place] [phone] HYUN SOSA self
--- OUTSIDE RECORDS SUMMARY | 2020-09-25 12:23 | CCD ---
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 MED[facility] ([facility]) Name Value Range Interpretation Code Description Data Ting rce(s) Supporting Document(s) Free T4 1.01 MED[facility] ([facility]) Thyroid Stimulating Hormone 3.170 ME DENT ([facility]) ID Date Data Source [id number] 08/11/2019 10:25:00 AM EST [facility] ([facility]) Name Value Range Interpretation Code Description Data Ting rce(s) Supporting Document(s) HDL 38 [facility] ([facility] Cholesterol in LDL [Mass/volume] in Serum or Plasma by calculation 88 MEDENT ([facility]) Triglycerides 173 MED[facility] ([facility] Cholesterol 161 [facility] ([facility]) Chol/HDL Ratio 4.236 MED[facility] ([facility]) ID Date Data Source [id number] 08/11/2019 10:25:00 AM EST [facility] Name Value Range Interpretation Code Description Data Ting rce(s) Supporting Document(s) Albumin [Mass/volume] in Serum or Plasma 3.6 MEDENT ([facility]) Calcium [Mass/volume] in Serum or Plasma 9.0 MEDENT ([facility]) Carbon dioxide, total [Moles/volume] in Serum or Plasma 32 [facility] ([facility]) Alanine aminotransferase [Enzymatic activity/volume] in Serum or Pl asma 45 MEDENT ([facility]) Chloride [Moles/volume] in Serum or Plasma 107 MEDENT ([facility]) Potassium [Moles/volume] in Serum or Plasma 4.3 MED[facility] ([facility]) Alkaline phosphatase [Enzymatic activity/volume] in Serum or Plasma 7 9 [facility] ([facility]) Protein [Mass/volume] in Serum or Plasma 7.0 MED[facility] ([facility]) Aspartate aminotransferase [Enzymatic activity/volume] in Serum or Plasma 27 MED[facility] ([facility]) Sodium 142 [facility] ([facility] Glucose 97 83-110 MED[facility] ([facility] Urea nitrogen [Mass/volume] in Serum or Plasma 15 MEDENT ([facility]) Creatinine For GFR 0.66 MEDENT ([facility]) Procedure Social History Code Duration Value Status Description Data Source(s ) Smoking 09/02/2020 12:00:00 AM EST Never Smoker completed Never S moker eCW1 ([facility]) Smoking 09/02/2020 12:00:00 AM EST Never Smoker completed Never S moker eCW1 ([facility]) Smoking 09/02/2020 12:00:00 AM EST Never Smoker completed Never S moker eCW1 ([facility]) Smoking 09/02/2020 12:00:00 AM EST Never Smoker completed Never S moker eCW1 ([facility]) Smoking 07/02/2020 12:00:00 AM EDT Never Smoker completed Never S moker eCW1 ([facility]) Smoking 07/02/2020 12:00:00 AM EDT Never Smoker completed Never S moker eCW1 ([facility]) Smoking 07/02/2020 12:00:00 AM EDT Never Smoker completed Never S moker eCW1 ([facility]) Smoking 06/13/2020 12:00:00 AM EDT Never Smoker completed Never S moker eCW1 ([facility]) Smoking 06/13/2020 12:00:00 AM EDT Never Smoker completed Never S moker eCW1 ([facility]) Smoking 06/13/2020 12:00:00 AM EDT Never Smoker completed Never S moker eCW1 ([facility]) Smoking 06/13/2020 12:00:00 AM EDT Never Smoker completed Never S moker eCW1 ([facility]) Smoking 06/13/2020 12:00:00 AM EDT Never Smoker completed Never S moker eCW1 ([facility]) Smoking 03/18/2020 12:00:00 AM EDT Never Smoker completed Never S moker eCW1 ([facility]) Vital Signs ID Date Data Source UNK Name Value Range Interpretation Code Description Data Source(s) Diastolic blood pressure 84 mm[Hg] 84 mm[Hg] eCW1 ([facility]) Systolic blood pressure 130 mm[Hg] 130 mm[Hg] e CW1 ([facility]) Body temperature 98.6 [degF] 98.6 [degF] eCW1 ( [facility]) Respiratory rate 18 /min 18 /min eCW1 ([facility]) Heart rate 102 /min 102 /min eCW1 ([facility]) Body mass index (BMI) [Ratio] 33.80 kg/m2 33.80 kg/m2 eCW1 ([facility]) Body height 67 [in_i] 67 [in_i] eCW1 ([facility]) Body weight 215.8 [lb_av] 215.8 [lb_av] eCW1 ([facility]) Diastolic blood pressure 82 mm[Hg] 82 mm[Hg] eCW1 ([facility]) Systolic blood pressure 130 mm[Hg] 130 mm[Hg] e CW1 ([facility]) Body temperature 98.6 [degF] 98.6 [degF] eCW1 ( [facility]) Respiratory rate 18 /min 18 /min eCW1 ([facility]) Heart rate 117 /min 117 /min eCW1 ([facility]) Body mass index (BMI) [Ratio] 34.11 kg/m2 34.11 kg/m2 eCW1 ([facility]) Body height 67 [in_i] 67 [in_i] eCW1 ([facility]) Body weight 217.8 [lb_av] 217.8 [lb_av] eCW1 ([facility]) Body temperature 97.7 [degF] 97.7 [degF] MEDENT ([facility]) Diastolic blood pressure 72 mm[Hg] 72 mm[Hg] eCW1 ([facility]) Systolic blood pressure 128 mm[Hg] 128 mm[Hg] e CW1 ([facility]) Body temperature 96.1 [degF] 96.1 [degF] eCW1 ( [facility]) Respiratory rate 18 /min 18 /min eCW1 ([facility]) Heart rate 88 /min 88 /min eCW1 ([facility]) Body mass index (BMI) [Ratio] 34.61 kg/m2 34.61 kg/m2 eCW1 ([facility]) Body height 67 [in_i] 67 [in_i] eCW1 ([facility]) Body weight 221 [lb_av] 221 [lb_av] eCW1 ([facility]) Diastolic blood pressure 80 mm[Hg] 80 mm[Hg] eCW1 ([facility]) Systolic blood pressure 120 mm[Hg] 120 mm[Hg] e CW1 ([facility]) Body temperature 96.9 [degF] 96.9 [degF] eCW1 ( [facility]) Respiratory rate 18 /min 18 /min eCW1 ([facility]) Heart rate 101 /min 101 /min eCW1 ([facility]) Body mass index (BMI) [Ratio] 35.02 kg/m2 35.02 kg/m2 eCW1 ([facility]) Body height 67 [in_i] 67 [in_i] eCW1 ([facility]) Body weight 223.6 [lb_av] 223.6 [lb_av] eCW1 ([facility]) Diastolic blood pressure 76 mm[Hg] 76 mm[Hg] eCW1 ([facility]) Systolic blood pressure 136 mm[Hg] 136 mm[Hg] e CW1 ([facility]) Body temperature 97.8 [degF] 97.8 [degF] eCW1 ( [facility]) Respiratory rate 18 /min 18 /min eCW1 ([facility]) Heart rate 107 /min 107 /min eCW1 ([facility]) Body mass index (BMI) [Ratio] 34.30 kg/m2 34.30 kg/m2 eCW1 ([facility]) Body height 67 [in_i] 67 [in_i] eCW1 ([facility]) Body weight 219 [lb_av] 219 [lb_av] eCW1 ([facility]) Diastolic blood pressure 67 mm[Hg] 67 mm[Hg] eCW1 ([facility]) Systolic blood pressure 133 mm[Hg] 133 mm[Hg] e CW1 ([facility]) Body temperature 97.9 [degF] 97.9 [degF] eCW1 ( [facility]) Respiratory rate 18 /min 18 /min eCW1 ([facility]) Heart rate 72 /min 72 /min eCW1 ([facility]) Body mass index (BMI) [Ratio] 35.39 kg/m2 35.39 kg/m2 eCW1 ([facility]) Body height 67 [in_i] 67 [in_i] eCW1 ([facility]) Body weight 226.0 [lb_av] 226.0 [lb_av] eCW1 ([facility]) Diastolic blood pressure 88 mm[Hg] 88 mm[Hg] eCW1 ([facility]) Systolic blood pressure 136 mm[Hg] 136 mm[Hg] e CW1 ([facility]) Body temperature 98.0 [degF] 98.0 [degF] eCW1 ( [facility]) Respiratory rate 18 /min 18 /min eCW1 ([facility]) Heart rate 108 /min 108 /min eCW1 ([facility]) Body mass index (BMI) [Ratio] 34.92 kg/m2 34.92 kg/m2 eCW1 ([facility]) Body height 67 [in_i] 67 [in_i] eCW1 ([facility]) Body weight 223 [lb_av] 223 [lb_av] eCW1 ([facility]) Diastolic blood pressure 78 mm[Hg] 78 mm[Hg] eCW1 ([facility]) Systolic blood pressure 110 mm[Hg] 110 mm[Hg] e CW1 ([facility]) Body temperature 99.4 [degF] 99.4 [degF] eCW1 ( [facility]) Respiratory rate 18 /min 18 /min eCW1 ([facility]) Heart rate 105 /min 105 /min eCW1 ([facility]) Body mass index (BMI) [Ratio] 35.71 kg/m2 35.71 kg/m2 eCW1 ([facility]) Body height 67 [in_us] 67 [in_us] eCW1 ([facility]) Body weight Measured 228 [lb_av] 228 [lb_av] eC W1 ([facility]) Diastolic blood pressure 81 mm[Hg] 81 mm[Hg] eCW1 ([facility]) Systolic blood pressure 140 mm[Hg] 140 mm[Hg] e CW1 ([facility]) Body temperature 96.5 [degF] 96.5 [degF] eCW1 ( [facility]) Respiratory rate 18 /min 18 /min eCW1 ([facility]) Heart rate 93 /min 93 /min eCW1 ([facility]) Body mass index (BMI) [Ratio] 35.14 kg/m2 35.14 kg/m2 eCW1 ([facility]) Body height 67 [in_us] 67 [in_us] eCW1 ([facility]) Body weight Measured 224.4 [lb_av] 224.4 [lb_av ] eCW1 ([facility]) Diastolic blood pressure--supine 80 mm[Hg] 80 mm[Hg] MEDENT ([facility]) Ra Systolic blood pressure--supine 124 mm[Hg] 124 mm[Hg] MEDENT ([facility]) Ra Diastolic blood pressure--sitting 82 mm[Hg] 82 mm[Hg] MEDENT ([facility]) large cuff, Ra; 116/80 LA Systolic blood pressure--sitting 112 mm[Hg] 112 mm[Hg] MEDENT ([facility]) large cuff, Ra; 116/80 LA Respiratory rate 18 /min 18 /min MEDENT ( [facility]) Heart rate 64 /min 64 /min MEDENT ([facility]) regular Body mass index (BMI) [Ratio] 34.6 kg/m2 34.6 k g/m2 MEDENT ([facility]) Body height 67 [in_i] 67 [in_i] MEDENT ([facility]) 5'7" Body weight 221.00 [lb_av] 221.00 [lb_av] MEDEN T ([facility]) Diastolic blood pressure 68 mm[Hg] 68 mm[Hg] eCW1 ([facility]) Systolic blood pressure 126 mm[Hg] 126 mm[Hg] e CW1 ([facility]) Body temperature 97.4 [degF] 97.4 [degF] eCW1 ( [facility]) Respiratory rate 18 /min 18 /min eCW1 ([facility]) Heart rate 99 /min 99 /min eCW1 ([facility]) Body mass index (BMI) [Ratio] 34.99 kg/m2 34.99 kg/m2 eCW1 ([facility]) Body height 67 [in_us] 67 [in_us] eCW1 ([facility]) Body weight Measured 223.4 [lb_av] 223.4 [lb_av ] eCW1 ([facility]) Diastolic blood pressure 73 mm[Hg] 73 mm[Hg] eCW1 ([facility]) Systolic blood pressure 141 mm[Hg] 141 mm[Hg] e CW1 ([facility]) Body temperature 97.4 [degF] 97.4 [degF] eCW1 ( [facility]) Respiratory rate 18 /min 18 /min eCW1 ([facility]) Heart rate 101 /min 101 /min eCW1 ([facility]) Body mass index (BMI) [Ratio] 34.73 kg/m2 34.73 kg/m2 eCW1 ([facility]) Body height 67 [in_us] 67 [in_us] eCW1 ([facility]) Body weight Measured 221.8 [lb_av] 221.8 [lb_av ] eCW1 ([facility]) Patient Treatment Plan of Care Planned Activity Planned Date Details Description Data Source (s) Sulfacetamide Sodium 100 MG/ML Ophthalmic Solution [Bl eph-10] 09/02/2020 12:00:00 AM EST eCW1 ([facility]) Sulfacetamide Sodium 100 MG/ML Ophthalmic Solution [Bl eph-10] 09/02/2020 12:00:00 AM EST eCW1 ([facility]) Sulfacetamide Sodium 100 MG/ML Ophthalmic Solution [Bl eph-10] 09/02/2020 12:00:00 AM EST eCW1 ([facility]) Sulfacetamide Sodium 100 MG/ML Ophthalmic Solution [Bl eph-10] 09/02/2020 12:00:00 AM EST eCW1 ([facility]) Omeprazole 20 MG Delayed Release Oral Capsule 06/13/2020 12:00:00 A M EDT eCW1 ([facility]) Ondansetron 4 MG Oral Tablet [Zofran] 06/13/2020 12:00:00 AM EDT eCW1 ([facility]) Omeprazole 20 MG Delayed Release Oral Capsule 06/13/2020 12:00:00 A M EDT eCW1 ([facility]) Ondansetron 4 MG Oral Tablet [Zofran] 06/13/2020 12:00:00 AM EDT eCW1 ([facility]) Omeprazole 20 MG Delayed Release Oral Capsule 06/13/2020 12:00:00 A M EDT eCW1 ([facility]) Ondansetron 4 MG Oral Tablet [Zofran] 06/13/2020 12:00:00 AM EDT eCW1 ([facility]) Omeprazole 20 MG Delayed Release Oral Capsule 06/13/2020 12:00:00 A M EDT eCW1 ([facility]) Ondansetron 4 MG Oral Tablet [Zofran] 06/13/2020 12:00:00 AM EDT eCW1 ([facility]) Omeprazole 20 MG Delayed Release Oral Capsule 06/13/2020 12:00:00 A M EDT eCW1 ([facility]) Ondansetron 4 MG Oral Tablet [Zofran] 06/13/2020 12:00:00 AM EDT eCW1 ([facility]) Amoxicillin 500 MG Oral Tablet 11/26/2019 12:00:00 AM EDT eCW1 ([facility]) Paroxetine 20 MG Oral Tablet [Paxil] 08/23/2019 12:00:00 AM EST eCW1 ([facility])
[2020-09-25] MEDS ORDERED: NS 1,000 ML IV SCH (12:59)
[2020-09-25 14:06] VITALS: O2SAT 99
[2020-09-25 14:14] LABS: BASO % 0.5 % (0.0-1.0); EOS # 0.1 10^3/uL (0.0-0.5); EOS % 1.5 % (0.0-3.0); HEMATOCRIT 40.9 % (36.0-47.0); HEMOGLOBIN 13.5 g/dl (12.0-15.5); LYMPH # 2.1 10^3/uL (1.5-5.0); LYMPH % 25.5 % (24.0-44.0); MEAN CORPUSCULAR HEMOGLOBIN 29.9 pg (27.0-33.0); MEAN CORPUSCULAR VOLUME 90.5 fl (80.0-96.0); MONO # 0.6 10^3/uL (0.0-0.8); MONO % 6.7 % (0.0-5.0); NEUTROPHILS # 5.3 10^3/uL (1.5-8.5); NEUTROPHILS % 65.6 % (36.0-66.0); PLATELET COUNT, AUTOMATED 355 10^3/uL (150-450); RED BLOOD COUNT 4.52 10^6/uL (4.00-5.40); WHITE BLOOD COUNT 8.2 10^3/uL (4.0-10.0)
[2020-09-25 14:26] LABS: INR 0.91; PARTIAL THROMBOPLASTIN TIME 27.4 SECONDS (24.2-38.5); PROTHROMBIN TIME 12.4 SECONDS (12.5-14.3)
--- NOTE | 2020-09-25 14:26 | ECGEPIP ---
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
[2020-09-25 14:29] LABS: D-DIMER QUANT 483.88 ng/ml (<500)
[2020-09-25 14:39] LABS: HCG, SERUM QUALITATIVE NEGATIVE (NEGATIVE)
[2020-09-25 14:48] LABS: ALBUMIN 3.7 GM/DL (3.2-5.2); ALT/SGPT 36 U/L (12-78); BILIRUBIN,DIRECT 0.1 MG/DL (0.0-0.2); BILIRUBIN,TOTAL 0.5 MG/DL (0.2-1.0); BLOOD UREA NITROGEN 12 MG/DL (7-18); CALCIUM LEVEL 9.2 MG/DL (8.5-10.1); CARBON DIOXIDE LEVEL 32 MEQ/L (21-32); CHLORIDE LEVEL 104 MEQ/L (98-107); CK-MB VALUE MASS < 1.0 NG/ML (<3.6); CPK CREATINE PHOSPHOKINASE 51 U/L (26-192); CREATININE FOR GFR 0.77 MG/DL (0.55-1.30); FREE T4 0.89 NG/DL (0.76-1.46); GLOMERULAR FILTRATION RATE > 60.0 (>58); GLUCOSE, FASTING 116 MG/DL (70-100); LIPASE 185 U/L (73-393); MAGNESIUM LEVEL 2.1 MG/DL (1.8-2.4); MB/CK RELATIVE INDEX 1.96 (< OR =4); PHOSPHORUS LEVEL 2.8 MG/DL (2.5-4.9); POTASSIUM SERUM 4.2 MEQ/L (3.5-5.1); SODIUM LEVEL 142 MEQ/L (136-145); TOTAL PROTEIN 7.1 GM/DL (6.4-8.2); TROPONIN I < 0.02 NG/ML (< 0.10)
--- NOTE | 2020-09-25 15:59 | REP ---
INDICATION: palpitations COMPARISON: 09/27/2019. TECHNIQUE: PA/Lateral FINDINGS: Lungs: Clear, no infiltrate. Heart: Normal in size. Mediastinum: Mediastinal silhouette unremarkable. Pleural angles: Unremarkable.. Bones and soft tissues: There are mild degenerative changes of the spine without compression deformity. IMPRESSION: No acute pulmonary disease. <Electronically signed by Jt Saavedra > 09/25/20 [id number]
[2020-09-25 16:00] VITALS: BP 131/62
== END 2020-09-25 16:32 | disposition home or self-care (01) ==
LOC: M ED 11:45
DX: R00.2 Palpitations (principal); M79.10 Myalgia, unspecified site; E11.9 Type 2 diabetes mellitus without complications; Z91.040 Latex allergy status

== ENCOUNTER → 2020-09-29 | Outpatient (REF) | payer OTHER ==
[2020-09-29 13:25] LABS: HEMOGLOBIN A1c 6.8 %
== END ==
LOC: M SFHCADAM 10:04
PROVIDERS: ATTEND Family Medicine
DX: E11.69 Type 2 diabetes mellitus with other specified complication (principal)

== ENCOUNTER → 2020-09-29 | Outpatient (CLI) | payer OTHER ==
--- NOTE | 2020-09-29 16:59 | REP ---
INDICATION: COUGH. COMPARISON: Comparison chest x-ray September 25, 2020. TECHNIQUE: Two views.. FINDINGS: The lungs are well inflated and free of infiltrate. The pleural angles are sharp. The heart size is normal. Pulmonary vasculature is not increased. No significant bony abnormality is seen. There are degenerative changes in the thoracic spine. IMPRESSION: Negative chest x-ray. <Electronically signed by Ubaldo Schultz > 09/29/20 [id number]
== END ==
LOC: M ADAMS 10:07
PROVIDERS: ATTEND Family Medicine
DX: R05 Cough (principal)

== ENCOUNTER → 2020-11-03 | Outpatient (REF) | payer OTHER ==
[~2020-11-03] MED LIST changes: +GLYB2.5T7 PO; -GLYB25TA PO
[2020-11-03 17:50] LABS: BASO # 0.1 10^3/uL (0.0-0.2); BASO % 0.8 % (0.0-1.0); EOS # 0.2 10^3/uL (0.0-0.5); LYMPH # 2.3 10^3/uL (1.5-5.0); LYMPH % 28.4 % (24.0-44.0); MEAN CORPUSCULAR HEMOGLOBIN 29.9 pg (27.0-33.0); MEAN CORPUSCULAR HGB CONC 32.5 g/dl (32.0-36.5); MONO # 0.5 10^3/uL (0.0-0.8); MONO % 6.5 % (2.0-8.0); NEUTROPHILS # 4.9 10^3/uL (1.5-8.5); NEUTROPHILS % 61.4 % (36.0-66.0); PLATELET COUNT, AUTOMATED 416 10^3/uL (150-450); RED BLOOD COUNT 4.35 10^6/uL (4.00-5.40)
[2020-11-03 18:15] LABS: AMYLASE 52 U/L (25-115); LIPASE 158 U/L (73-393)
== END ==
LOC: M SFHCADAM 11:33
PROVIDERS: ATTEND Family Medicine
DX: R10.13 Epigastric pain (principal)

== ENCOUNTER → 2020-11-03 | Outpatient (REF) | payer OTHER | LOC: M SFHCADAM 18:11 | PROVIDERS: ATTEND Family Medicine | DX: R11.2 Nausea with vomiting, unspecified (principal) ==

== ENCOUNTER → 2020-12-05 | Outpatient (CLI) | payer OTHER ==
--- NOTE | 2020-12-08 13:39 | SLEEPHOME ---
DIAGNOSTIC HOME SLEEP STUDY DATE: 12/05/2020 ORDERED BY: Ramon Melara D.O. Diagnostic home sleep testing was performed due to concern for the obstructive sleep apnea syndrome in this patient with a history of excessive somnolence and snoring. For testing, a nocturnal T3 respiratory monitoring device was used. Continuous record was made of pulse, oxygen saturation, air flow, chest and abdominal strain, and body position. 9 hours and 59 minutes of data were reviewed. There were 9 hours and 59 minutes marked as time in bed. During the interval marked time in bed, there were 72 respiratory events identified of 10 seconds in duration or greater for a respiratory event index 7.2. The events were primarily obstructive; however, 16 mixed and central apneas were seen. Baseline pulse rate was 57. Pulse rate range 43 to 10. Baseline saturation was 95%. Saturations fell to 84%. Testing was performed in both the supine and non-supine positions. IMPRESSION: Abnormal home sleep testing, with repetitive respiratory events and oxygen desaturations to 84% with a respiratory event index of 7.2, is consistent with the obstructive sleep apnea syndrome. RECOMMENDATION: The patient should be encouraged to undergo formal sleep evaluation.
== END ==
LOC: M SLEEP HO 11:43
PROVIDERS: ATTEND Internal Medicine Pulmonary Disease
DX: R06.83 Snoring (principal)

== ENCOUNTER → 2021-01-05 | Outpatient (REF) | payer OTHER | LOC: M SFHCADAM 15:06 | PROVIDERS: ATTEND Physician Assistant | DX: R05 Cough (principal) ==

== ENCOUNTER 2021-02-06 17:58 | Emergency (ER) | payer OTHER ==
[~2021-02-06] VITALS: Ht 170.2 cm; Wt 97.7 kg
--- NOTE | 2021-02-06 21:29 | REPVR ---
PROCEDURE INFORMATION: Exam: XR Chest Exam date and time: 02/06/2021 8:20 PM Age: 45 years old Clinical indication: Other: Mid back pain TECHNIQUE: Imaging protocol: XR of the chest. Views: 2 views. COMPARISON: DX CHEST 2 VIEW 09/29/2020 10:11 AM FINDINGS: Lungs: Degree of inflation of the lungs is normal. No evidence of pulmonary edema. No focal airspace process. No concerning parenchymal lung mass. Pleural spaces: No pleural effusion or pneumothorax. Heart/Mediastinum: Cardiac silhouette appears normal. No mediastinal adenopathy or hilar mass. Bones/joints: Osseous structures show no acute or concerning abnormality. Multi-level, age-related thoracic degenerative disc disease is present. IMPRESSION: No active or focal cardiopulmonary process. Mild multilevel midthoracic degenerative disc disease without evidence of an inflammatory or erosive component Electronically signed by: Luis M Graham On 02/06/2021 21:28:49 PM
[2021-02-06] MEDS ORDERED: NAPR-837 PO (21:42)
[2021-02-06] MEDS ORDERED: NAPROXEN 250 MG TAB PO ONE (21:45)
[2021-02-06 21:51] VITALS: BP 143/83
--- NOTE | 2021-02-07 12:55 | ECGEPIP ---
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 Order Number: [id number] Reading MD: Milo Bowden Measurements Intervals [place] Rate: 48 P: 52 UT: 140 QRS: 24 QRSD: 78 T: 25 QT: 470 QTc: 419 Interpretive Statements Sinus bradycardia RATE CHANGE COMPARED TO 09/25/20 Electronically Signed on 02-07-2021 12:55:19 EDT by Milo Bowden
== END 2021-02-06 21:58 | disposition home or self-care (01) ==
LOC: M ED 17:58
DX: M51.34 Other intervertebral disc degeneration, thoracic region (principal); R00.1 Bradycardia, unspecified; Z91.040 Latex allergy status

== ENCOUNTER → 2021-03-04 | Outpatient (CLI) | payer OTHER ==
[~2021-03-04] MED LIST changes: +NAPR-837 PO
== END ==
LOC: M LABSMTC 11:13
PROVIDERS: ATTEND Anesthesiology
DX: Z01.812 Encounter for preprocedural laboratory examination (principal); Z20.822 Contact with and (suspected) exposure to COVID-19

== ENCOUNTER 2021-03-05 11:52 | Day surgery (SDC) | payer OTHER ==
[~2021-03-05] VITALS: Ht 170.2 cm; Wt 96.1 kg
[~2021-03-05 11:52] MED LIST changes: +LIDOCAINE 1% MDV 20ML VIAL SQ PRN; +LR 1,000 ML IV ONE; +ceFAZolin SOD 1 GM in D5W MINI-BAG PLUS 50 ML IV ONE
[2021-03-05] MEDS ORDERED: LIDOCAINE 1% MDV 20ML VIAL As Ordered ONE (12:11)
[2021-03-05] MEDS ORDERED: propofoL 200 MG/20 ML VIAL As Ordered ONE (13:05)
[2021-03-05 14:17] VITALS: BP 140/81
--- NOTE | 2021-03-05 14:53 | RO ---
OPERATIVE NOTE DATE OF OPERATION: 03/05/2021 PROCEDURE: Implantation of loop recorder. IMPLANTING ELECTRONIC TECHNICIAN: Dr. Rachid Granger BAR BACK: ANESTHESIOLOGIST: Dr. June. PREOPERATIVE DIAGNOSIS: 1. Paroxysmal palpitations. 2. Cardiomegaly. 3. Obstructive sleep apnea. POSTOPERATIVE DIAGNOSIS: 1. Paroxysmal palpitations. 2. Cardiomegaly. 3. Obstructive sleep apnea. ANESTHESIA: Monitored local anesthesia due the patient's anxiety. CLINICAL SUMMARY: This 45-year-old, mother of five, resident of [place], [place], is well known to our cardiology practice, having multiple medical problems including obesity, obstructive sleep apnea and paroxysmal palpitations with abnormal EKG. Her EKG shows a left atrial conduction disturbance, has a rightward axis with low voltage and slow precordial R-wave progression in keeping with body habitus versus prior infarction. Treadmill Cardiolite heart scan, October 02, 2019 showed good exercise tolerance, stopping with chest discomfort that varied with respiration along with shortness of breath and leg fatigue. She had 1.[address] segment depression in the inferior leads with infrequent PVCs. There was no abnormal pulmonary uptake. LV size was normal with hyperkinetic wall motion and myocardial perfusion images were normal. Echocardiogram, October 17, 2019 performed because of edema and chest pain with abnormal EKG showed normal left ventricular size, wall thickness and wall motion but mildly dilated left atrium with normal right heart chamber sizes and borderline pulmonary hypertension. Her IVC was mildly dilated but collapsed normally at this time. Valvular structure and function was normal. A 30-day event monitor was performed September 28 through October 28, 2019 and showed underlying sinus rhythm. Seven symptomatic transmissions were made for heart racing, fluttering, dyspnea and chest pain. It did appear to correlate with any significant rhythm disturbance. However, February 06, 2021, she presented to the emergency room with back pain and was found to have marked sinus bradyarrhythmia with dizziness. She continues to have paroxysmal palpitations. She has been compliant with her CPAP therapy and has tried to decrease her caffeine intake and drinks only minimal alcoholic beverages. At this time, she has been free of any chest discomfort, shortness of breath or embolic phenomenon or syncope. A pleasant, middle-aged woman, mildly obese with BMI 33.4, pulse rate 69 BPM and regular with respiratory variation. Blood pressure 124/78. No pallor or cyanosis. Jugular veins were not elevated. Trachea was midline. Normal appearing chest configuration and breath sounds. Apical impulse not palpable. Heart sounds were normal, normal carotid upstrokes and volume with no bruits. Soft abdomen with no current papilledema, normal peripheral pulses. EKG, March 02, 2021 showed sinus rhythm at 69 BPM with left atrial conduction disturbance and low voltages as in the past. Her rate was slightly faster than that performed on February 06 in the emergency room. Blood work showed normal complete blood count and chemistry. DESCRIPTION OF PROCEDURE: An implantable loop recorder was recommended in light of her history of palpitations and intermittent marked sinus arrhythmia/bradycardia with lightheadedness. Presence of left atrial enlargement and obstructive sleep apnea bodes an increased risk for rhythm disturbances. The patient agreed to an implantable loop recorder. With the patient in the fasting state, having received Ancef 1 gm IV premedication, she was taken to the operating theater. Multiple surface electrodes were applied to facilitate continuous electrocardiographic monitoring. The left parasternal region was prepped and draped in the usual fashion. IV sedation was administered by anesthesia in light of the patient's anxiety. The skin just lateral to the parasternal border at the level of the third rib was infiltrated with 1% Xylocaine and a tract orientated at approximately 45 degrees from the left parasternal region was also infiltrated with Xylocaine. A 1/2 inch incision was made with a special tool and the loop recorder ([employer] Confirm Rx model #[id number], serial #[id number]) was inserted using a special tool. Excellent electrograms were obtained with clearly visible P-waves and QRS complexes. The R wave amplitude measured 0.46 mV. The small incision was closed using three farzana and a dry dressing was applied. The patient was returned to the recovery room in good condition. ESTIMATED BLOOD LOSS: Zero. COMPLICATIONS: No apparent complications. Once the patient is alert and ambulatory, he will be able to be discharged home. We requested that she keep her incision dry until she comes for a clinic visit, wound check, staple removal appointment at 8 a.m., March 12, 2021. Her diet and activity can remain the same. MEDICATIONS: Can resume Tizanidine 4 mg tablets, one tablet 3-4 times daily p.r.n. back pain, Multivitamin women one daily, and Henley Seal 500 mg one tablet daily. She has been encouraged to contact us promptly for any abnormal erythema, swelling or discharge.
[2021-03-06] MEDS ORDERED: MIDAZOLAM INJ 2MG/2ML VIAL (J2250 PER 1MG) As Ordered ONE (10:57)
[2021-03-06] MEDS ORDERED: fentaNYL 100 MCG/2 ML INJECTION (J3010) As Ordered ONE (10:57)
== END 2021-03-05 14:17 | disposition home or self-care (01) ==
LOC: M SDC 11:52
PROVIDERS: ATTEND Internal Medicine Cardiovascular Disease
DX: R00.2 Palpitations (principal); I51.7 Cardiomegaly; G47.33 Obstructive sleep apnea (adult) (pediatric); R94.31 Abnormal electrocardiogram [ECG] [EKG]; E66.9 Obesity, unspecified; Z68.33 Body mass index [BMI] 33.0-33.9, adult; E11.9 Type 2 diabetes mellitus without complications; M54.30 Sciatica, unspecified side; M47.812 Spondylosis without myelopathy or radiculopathy, cervical region; J45.909 Unspecified asthma, uncomplicated; Z91.040 Latex allergy status; Z79.899 Other long term (current) drug therapy
CPT/HCPCS: 33285; 81025; C1764; J0690; J2250; J3010

== ENCOUNTER 2021-03-08 12:54 | Emergency (ER) | payer OTHER ==
[~2021-03-08] VITALS: Ht 170.2 cm; Wt 97.3 kg
[~2021-03-08 12:54] MED LIST changes: -LIDOCAINE 1% MDV 20ML VIAL SQ PRN; -LR 1,000 ML IV ONE; -ceFAZolin SOD 1 GM in D5W MINI-BAG PLUS 50 ML IV ONE
[2021-03-08] MEDS ORDERED: NS 1,000 ML IV ONE (13:25)
[2021-03-08 13:45] LABS: BASO % 0.5 % (0.0-1.0); EOS # 0.2 10^3/uL (0.0-0.5); EOS % 2.1 % (0.0-3.0); HEMATOCRIT 39.8 % (36.0-47.0); HEMOGLOBIN 13.3 g/dl (12.0-15.5); LYMPH # 1.9 10^3/uL (1.5-5.0); LYMPH % 23.9 % (24.0-44.0); MEAN CORPUSCULAR HEMOGLOBIN 30.5 pg (27.0-33.0); MEAN CORPUSCULAR HGB CONC 33.4 g/dl (32.0-36.5); MEAN CORPUSCULAR VOLUME 91.3 fl (80.0-96.0); MONO # 0.5 10^3/uL (0.0-0.8); MONO % 5.8 % (2.0-8.0); NEUTROPHILS # 5.3 10^3/uL (1.5-8.5); NEUTROPHILS % 67.2 % (36.0-66.0); PLATELET COUNT, AUTOMATED 332 10^3/uL (150-450); RED BLOOD COUNT 4.36 10^6/uL (4.00-5.40); WHITE BLOOD COUNT 7.9 10^3/uL (4.0-10.0)
[2021-03-08 14:11] LABS: BLOOD UREA NITROGEN 10 MG/DL (7-18); CARBON DIOXIDE LEVEL 28 MEQ/L (21-32); CHLORIDE LEVEL 107 MEQ/L (98-107); CREATININE FOR GFR 0.78 MG/DL (0.55-1.30); GLOMERULAR FILTRATION RATE > 60.0 (>58); GLUCOSE, FASTING 149 MG/DL (70-100); POTASSIUM SERUM 4.2 MEQ/L (3.5-5.1); SODIUM LEVEL 139 MEQ/L (136-145)
[2021-03-08 14:12] LABS: ALBUMIN 3.8 GM/DL (3.2-5.2); ALT/SGPT 47 U/L (12-78); BILIRUBIN,DIRECT 0.2 MG/DL (0.0-0.2); BILIRUBIN,TOTAL 0.8 MG/DL (0.2-1.0); CALCIUM LEVEL 8.7 MG/DL (8.5-10.1); LIPASE 158 U/L (73-393); TOTAL PROTEIN 6.9 GM/DL (6.4-8.2)
[2021-03-08 14:48] VITALS: BP 155/86
== END 2021-03-08 14:55 | disposition home or self-care (01) ==
LOC: M ED 12:54
DX: R19.7 Diarrhea, unspecified (principal); R11.0 Nausea; Z91.040 Latex allergy status; Z91.048 Other nonmedicinal substance allergy status

== ENCOUNTER → 2021-03-11 | Outpatient (CLI) | payer OTHER ==
--- NOTE | 2021-03-13 00:01 | ECWPNPC ---
PATIENT NAME: HYUN SOSA : 1975 GENDER: FEMALE VISIT DATE: 03/11/2021 DISCHARGE DATE: 03/11/21922 VISIT LOCKED DATE TIME: PHYSICIAN: JANNA JACOBSON PHYSICIAN PAGER NO: ACTIVE RESOURCE: JANNA JACOBSON REASON FOR APPOINTMENT 1. BACK PAIN HISTORY OF PRESENT ILLNESS DEPRESSION SCREENING: PHQ-2 (2015 EDITION) LITTLE INTEREST OR PLEASURE IN DOING THINGS?NOT AT ALL FEELING DOWN, DEPRESSED, OR HOPELESS?NOT AT ALL TOTAL SCORE0 GENERAL: PLEASANT 45-YEAR-OLD FEMALE RETURNS TO OUR PRACTICE FOR FOLLOW-UP OF LOW BACK PAIN AND GENERALIZED PAIN SYNDROME. LAST VISIT WAS APPROXIMATELY 1 YEAR AGO. SHE WAS DOING WELL AFTER LUMBAR EPIDURAL STEROID INJECTION UNTIL THIS PAST FALL. TODAY SHE HAS BEEN QUITE UNCOMFORTABLE. STATES SHE CONTINUES TO WORK FULL-TIME BUT IT IS ALMOST UNBEARABLE DUE TO PAIN. IS UNDER A LOT OF STRESS AT WORK DUE TO LACK OF HELP AND HAVING TO DO MORE WITH LESS PEOPLE. WAS SEEN AT THE EMERGENCY ROOM APPROXIMATELY LAST WEEK DUE TO SEVERE PAIN AND DIFFICULTY BREATHING. SHE WAS FOUND TO BE QUITE BRADYCARDIC. SHE HAS SINCE SEEN DR. THOMAS WHO HAS PLACED A LOOP RECORDER. SHE HAS A FOLLOW-UP WITH DR. THOMAS NEXT WEEK. TODAY SHE DENIES ANY CHEST PAINS OR SHORTNESS OF BREATH. SHE DOES REPORT SYMPTOMS OF PALPITATIONS RECENTLY. STRONG FAMILY HISTORY OF CARDIAC PROBLEMS AT A YOUNG AGE. SHE WOULD LIKE TO HAVE PROCEDURES DONE AGAIN BUT AT THIS MOMENT SHE IS NOT MEDICALLY STABLE. DENIES BOWEL OR BLADDER INCONTINENCE. DENIES SADDLE PARESTHESIAS. - - -. FALL RISK SCREENING: SCREENING : NO FALLS REPORTED IN THE LAST YEAR . PAIN SCREENING: PATIENT HAS A COMPLAINT OF ACUTE OR CHRONIC PAIN :YES LOCATION OF PAIN:MID BACK, LOW BACK INTENSITY OF PAIN (SCALE OF 1 TO 10):8 WHAT DOES YOUR PAIN FEEL LIKE:ACHING, CONTINOUS DURATION:CONTINOUS, CONSTANT, ALL DAY PAIN IS INCREASED BY:ACTIVITIES PAIN IS DECREASED BY:USE OF PAIN MEDICATIONS, OTHERS TAKING HOT BATH, TIZANIDINE NURSING NOTE: - - -. PAIN CENTER INTAKE QUESTIONS: DO YOU HAVE A HISTORY OF MRSA? :NO DO YOU TAKE A BLOOD THINNERS? :NO DO YOU HAVE ANY BLEEDING DISORDERS? :NO ANY NEW NUMBNESS OR WEAKNESS IN YOUR LEGS OR ARMS? :YES BOTH LEGS , AND IN HER UPPER BACK ANY PACEMAKER,DEFIBRILLATOR, OR DORSAL COLUMN STIMULATOR? :NO LOOP RECORDER DO YOU HAVE ANY RASHES OR OPEN SORES? :NO ARE YOU ALLERGIC TO IV DYE? :NO ARE YOU DIABETIC? :NO NOT ANY MORE ANY NEW PROBLEMS WITH YOUR MEDICATIONS? :NO HAVE YOU RECEIVED A VACCINE IN THE PAST 30 DAYS? :NO DO YOU PLAN TO RECEIVE A VACCINE IN THE NEXT 21 DAYS? :NO DO YOU NEED ANY PRESCRIPTION? :NO DO YOU TAKE ANY IMMUNOSUPPRESSIVE MEDICATIONS? :NO IS THERE A CHANCE YOU COULD BE ? :NO ARE YOU BREAST FEEDING? :NO CURRENT MEDICATIONS TAKING TIZANIDINE HCL 4 MG CAPSULE 1 TABLET NEEDED ORALLY THREE TIMES A DAY, MDD=4 NOT-TAKING OMEPRAZOLE 20 MG CAPSULE DELAYED RELEASE 1 CAPSULE 30 MINUTES BEFORE MORNING MEAL ORALLY ONCE A DAY NOT-TAKING AMOXICILLIN-POT CLAVULANATE 875-125 MG TABLET 1 TABLET ORALLY EVERY 12 HRS NOT-TAKING BLEPH-10 10 % SOLUTION 2 DROPS INTO AFFECTED EYE OPHTHALMIC FOUR TIMES DAILY NOT-TAKING GLUCOMETER DIRECTED TOPICALLY DAILY NOT-TAKING LANCETS - MISCELLANEOUS DIRECTED TOPICALLY TID NOT-TAKING BLOOD GLUCOSE TEST - STRIP DIRECTED IN VITRO TID NOT-TAKING CENTRUM SILVER - TABLET DIRECTED ORALLY DAILY NOT-TAKING ZOFRAN 4 MG TABLET 1 TABLET ORALLY EVERY 4 HOURS NEEDED MEDICATION LIST REVIEWED AND RECONCILED WITH THE PATIENT PAST MEDICAL HISTORY ARTHRITIS CHRONIC PAIN FROM NECK TO TAIL BONE EXERCISE STRESS TEST WITH EKG BORDERLINE FOR ISCHEMIA (09/2019) ECHO SHOWED MILD LEFT ATRIAL ENLARGEMENT, OTHERWISE NORMAL (10/2019) 30 DAY EVENT MONITOR DID NOT SHOW CORRELATION BETWEEN PALPITATIONS/CHEST DISCOMFORT AND ARRHYTHMIA GESTATIONAL DIABETES IN HER LAST 2 PREGNANCIES BETO ON CPAP (01/2021) BACK PAIN ALLERGIES LATEX (FOR ALLERGY USE ONLY): RASH, HIVES - ALLERGY NICKEL: MAKE HER SKIN GREEN - ALLERGY SURGICAL HISTORY LOOP RECORDER 03/05/2021 CHILD 4X FAMILY HISTORY FATHER: 49 YRS, [place], DIAGNOSED WITH UNSPECIFIED HEART DISEASE MOTHER: ALIVE 57 YRS, FIBROMYALGIA, OSTEOARTHRITIS, OSTEOPOROSIS, DEPRESSION, ASTHMA, BETO, MIGRAINES, DIABETES, OTHER SPECIFIED CONDITIONS INFLUENCING HEALTH STATUS SIBLINGS: ALIVE, ONE BROTHER WITH LEUKEMIA, CHF WITH DEFIBRILLATOR; ANOTHER BROTHER WITH HEART MURMUR AND BETO, UNSPECIFIED HEART DISEASE, OTHER MALIGNANT NEOPLASM OF UNSPECIFIED SITE, OTHER SPECIFIED CONDITIONS INFLUENCING HEALTH STATUS PATERNAL GRAND FATHER: UNKNOWN PATERNAL GRAND MOTHER: UNKNOWN MATERNAL GRAND FATHER: ALIVE, COLON CANCER, HYPERTENSION, OTHER MALIGNANT NEOPLASM OF UNSPECIFIED SITE MATERNAL GRAND MOTHER: , THYROID DISEASE, DEPRESSION, HYPERTENSION, DIABETES 3 BROTHER(S) , 1 SISTER(S) - HEALTHY. 3 SON(S) , 2 DAUGHTER(S) - HEALTHY. ADAPT ONE DAUGHTER. SOCIAL HISTORY GENERAL: TOBACCO USE ARE YOU A:NONSMOKER BACK IN HIGH SCHOOL LATEX QUESTIONNAIRE LATEX ALLERGY : HAVE YOU EVER DEVELOPED ANY TYPE OF REACTION AFTER HANDLING LATEX PRODUCTS SUCH RUBBER GLOVES, CONDOMS, DIAPHRAGMS, BALLOONS, SOCKS, OR UNDERWEAR?YES - PLEASE INDICATE :RUBBER GLOVES LATEX ALLERGY : HAVE YOU EVER DEVELOPED ANY TYPE OF REACTION DURING OR AFTER DENTAL APPOINTMENT, VAGINAL/RECTAL EXAMINATION, SURGICAL PROCEDURE, OR ANY OTHER EXPOSURE?YES - PLEASE INDICATE :SURGICAL PROCEDURE LATEX RISK : HAVE YOU EVER HAD ANY DIFFICULTY BREATHING OR HIVES AFTER EATING OR HANDLING ANY FRUITS, OR VEGETABLES; SUCH KIWI, BANANAS, STONE FRUITS, OR CHESTNUTSNO LATEX RISK : DO YOU HAVE A PREVIOUS PERSONAL HISTORY OF MORE THAN NINE SURGERIES, SPINA BIFIDA, OR REPEATED CATHERIZATIONS? NO LATEX RISK : ARE YOU FREQUENTLY EXPOSED TO LATEX PRODUCTS IN YOUR OCCUPATION?NO DATE ASKED : 03/11/2021 ALCOHOL USE: NO. ALCOHOL SCREENING DID YOU HAVE A DRINK CONTAINING ALCOHOL IN THE PAST YEAR?YES HOW OFTEN DID YOU HAVE SIX OR MORE DRINKS ON ONE OCCASION IN THE PAST YEAR?NEVER (0 POINTS) HOW MANY DRINKS DID YOU HAVE ON A TYPICAL DAY WHEN YOU WERE DRINKING IN THE PAST YEAR?1 OR 2 (0 POINTS) HOW OFTEN DID YOU HAVE A DRINK CONTAINING ALCOHOL IN THE PAST YEAR?MONTHLY OR LESS (1 POINT) POINTS1 INTERPRETATIONNEGATIVE RECREATIONAL DRUG USE DRUG USE?NO CAFFEINE CAFFEINE USE?YES HOW OFTEN AND HOW MUCH? 3 CUPS COFFEE, 2 CUPS TEA/DAY SEXUAL HX HAD SEX IN THE LAST 12 MONTHS (VAGINAL, ORAL, OR ANAL)?YES WITHMEN ONLY HAVE YOU EVER HAD AN STD?NO HIV / HEP-C SCREENING HIV TEST OFFERED TO PATIENT:YES DATE OFFERED:07/11/2019 TEST ACCEPTED:NO HEP-C TEST OFFERED TO PATIENT:NO REASON:PATIENT DECLINED BROCHURE PROVIDED TO PATIENTNO [id number] LANGUAGES SPOKEN:FRISIAN EDUCATION LEVEL OF EDUCATION:FINISHED HIGH SCHOOL SOME COLLEGE LEARNING BARRIERS / SPECIAL NEEDS BARRIERS TO LEARNING?NO HEARING IMPAIRED?NO VISION IMPAIRED?YES :CORRECTIVE LENSES COGNITIVELY IMPAIRED?NO READINESS TO LEARN?YES LEARNING PREFERENCES?YES :DEMONSTRATION/VERBAL INSTRUCTION LEARNING CAPABILITIES PRESENT?YES EMOTIONAL BARRIERS?NO SPECIAL DEVICES?YES : CPAP YARDER BOSS NEEDED?NO DOMESTIC VIOLENCE DO YOU FEEL SAFE IN YOUR ENVIRONMENT?YES 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 DIET: REGULAR. EXERCISE: STRETCHES BID. MARITAL STATUS: . OTHERS AT HOME: , CHILDREN, MIL, GRANDPARENTS; 3 CATS. - PFS REFERRAL NEEDED?NO CLERGY REFERRAL NEEDED?NO PUBLIC HEALTH REFERRAL NEEDED?NO HAS THE PATIENT BEEN EDUCATED REGARDING HIS/HER PLAN OF CARE?YES HAS THE PATIENT BEEN EDUCATED REGARDING PAIN, THE RISK FOR PAIN, THE IMPORTANCE OF EFFECTIVE PAIN MANAGEMENT, AND THE PAIN ASSESSMENT PROCESS?YES ADVANCE DIRECTIVE ADVANCE DIRECTIVE DISCUSSED WITH PATIENT:YES 02/04/2020 PATIENT HAS NO ADVANCED DIRECTIVES AND DECLINES INFORMATION ON HCP AT THIS TIME. AD SHE ENJOYS HIKING AND DOING CRAFTS WITH THE CHILDREN. HOSPITALIZATION/MAJOR DIAGNOSTIC PROCEDURE WHOOPING COUGH AND PNEUMONIA BABY MILD CONCUSSION AGE 10 CHILD 1993, 1996, 2013, 2014 REVIEW OF SYSTEMS CONSTITUTIONAL: ANY RECENT FEVER NO . CHILLS NO . WEIGHT CHANGE OF UNKNOWN REASONS NO . GASTROENTEROLOGY: NEW UNEXPLAINABLE CHANGES IN BOWEL CONTROL OVER THE PAST MONTH. HAS BEEN EXPERIENCING PERIODIC BOWEL URGENCY. DENIES BOWEL INCONTINENCE. . CONSTIPATION NO . GENITOURINARY: ANY NEW CHANGE IN BLADDER CONTROL? NO . NEUROLOGY: NEW ONSET DIZZINESS OR NEUROLOGICAL CHANGES NOT MENTIONED NO . NEW NUMBNESS OR PAIN PATTERNS NOT MENTIONED AND PERTINENT TO TODAY'S VISIT NO . CARDIOLOGY: NEW CHEST PRESSURE NO . PATIENT DENIES NO . RESPIRATORY: UNEXPLAINABLE COUGH NO . NEW SHORTNESS OF BREATH NO . VITAL SIGNS WT 214.8 LBS, HT 67 IN, BMI 33.64 INDEX, BP 138/67 MM HG, HR 62 /MIN, RR 18 /MIN, TEMP 97.8 F, OXYGEN SAT % 99%, SAFE IN ENV? (Y/N) YES, NA INITIALS AW [id number].NIRMALA LINCOLN. EXAMINATION GENERAL EXAMINATION: GENERAL AWAKE,ALERT ,PLEASANT . PSYCH AFFECT NORMAL . LUNGS: LUNG JAY ARE CLEAR TO AUSCULTATION BILATERALLY. GOOD MOVEMENT OF AIR . HEART: S1, S2 IN A REGULAR RATE AND RHYTHM. NO SIGNIFICANT MURMURS, RUBS OR GALLOPS NOTED . MUSCULOSKELETAL:SLIGHT WEAKNESS OVER RIGHT LEG. MULTIPLE AREAS OF TENDER SPOTS UPPER AND LOWER TORSO INDICATIVE OF FIBROMYALGIA.. LUMBAR: PALPATION: + FOR PAIN OVER L/S SPINE. + FOR PAIN OVER L/S PARASPINALS. NEUROLOGIC EXAM: NORMAL SENSATION LIGHT TOUCH BILAT. LOWER EXTREMITIES.DTR 2/4 BILAT.. DIAGNOSTIC TESTS REVIEWED MRI L/S SPINE-06/05/19. ASSESSMENTS CHRONIC PAIN SYNDROME - G89.4 (PRIMARY) MYALGIA, OTHER SITE - M79.18 TREATMENT CHRONIC PAIN SYNDROME NOTES: CONTINUE CARDIAC EVALUATION WITH DR THOMAS.CONTINUE WITH PT PER PRIMARY CARE.FOLLOW UP IN 2 MONTHS AT PAIN CENTER.WILL CONSIDER INTERVENTIONAL OPTIONS ONCE CARDIAC CLEARANCE IS OBTAINED. PROCEDURE CODES [id number] ESTABILISHED PATIENT [facility] CHARGE DISPOSITION & COMMUNICATION FOLLOW UP 2 MONTHS (REASON: CONSIDER INTERVENTIONAL OPTIONS.LOW BACK PAIN/GENERALIZED PAIN SYNDROME.RESULTS OF LOOP RECORDER) ELECTRONICALLY SIGNED BY JESSICA VERDUGO ON 03/12/2021 AT 01:24 PM EDT DISCLAIMER : THIS IS A VISIT SUMMARY EXTRACTED FROM THE [employer] CHART. IT IS NOT A COPY OF THE [employer] PROGRESS NOTE. RADHA
== END ==
LOC: M PAIN 08:30
PROVIDERS: ATTEND Nurse Practitioner Family
DX: G89.4 Chronic pain syndrome (principal); M79.18 Myalgia, other site; G47.33 Obstructive sleep apnea (adult) (pediatric); Z79.899 Other long term (current) drug therapy; Z91.040 Latex allergy status; Z91.048 Other nonmedicinal substance allergy status

== ENCOUNTER → 2021-05-25 | Outpatient (CLI) | payer OTHER | LOC: M PAIN 09:30 | PROVIDERS: ATTEND Anesthesiology | DX: M51.16 Intervertebral disc disorders with radiculopathy, lumbar region (principal); G89.29 Other chronic pain; G47.33 Obstructive sleep apnea (adult) (pediatric); Z87.891 Personal history of nicotine dependence; Z91.040 Latex allergy status; Z79.899 Other long term (current) drug therapy ==

== ENCOUNTER → 2021-06-10 | Outpatient (CLI) | payer OTHER | LOC: M LABSMTC 11:45 | PROVIDERS: ATTEND Pediatrics | DX: Z11.52 Encounter for screening for COVID-19 (principal) ==

== ENCOUNTER → 2021-06-22 | Outpatient (CLI) | payer OTHER | LOC: M PAIN 08:45 | PROVIDERS: ATTEND Anesthesiology | DX: M51.16 Intervertebral disc disorders with radiculopathy, lumbar region (principal); G89.29 Other chronic pain; G47.33 Obstructive sleep apnea (adult) (pediatric); Z87.891 Personal history of nicotine dependence; Z91.040 Latex allergy status; Z79.899 Other long term (current) drug therapy ==

== ENCOUNTER → 2021-07-28 | Outpatient (CLI) | payer OTHER | LOC: M PAIN 10:00 | PROVIDERS: ATTEND Nurse Practitioner Family | DX: M51.16 Intervertebral disc disorders with radiculopathy, lumbar region (principal); G89.29 Other chronic pain; G47.33 Obstructive sleep apnea (adult) (pediatric); Z87.891 Personal history of nicotine dependence; Z91.040 Latex allergy status; Z91.09 Other allergy status, other than to drugs and biological substances; Z79.899 Other long term (current) drug therapy ==

== ENCOUNTER 2021-11-11 11:42 | Emergency (ER) | payer OTHER ==
[~2021-11-11] VITALS: Ht 170.2 cm; Wt 96.5 kg
[2021-11-11 12:46] LABS: BASO # 0.1 10^3/uL (0.0-0.2); BASO % 0.5 % (0.0-1.0); EOS # 0.1 10^3/uL (0.0-0.5); EOS % 1.3 % (0.0-3.0); HEMATOCRIT 41.6 % (36.0-47.0); HEMOGLOBIN 13.8 g/dl (12.0-15.5); LYMPH % 21.6 % (24.0-44.0); MEAN CORPUSCULAR HEMOGLOBIN 30.1 pg (27.0-33.0); MEAN CORPUSCULAR HGB CONC 33.2 g/dl (32.0-36.5); MEAN CORPUSCULAR VOLUME 90.6 fl (80.0-96.0); MONO # 0.5 10^3/uL (0.0-0.8); MONO % 5.2 % (2.0-8.0); NEUTROPHILS # 6.5 10^3/uL (1.5-8.5); PLATELET COUNT, AUTOMATED 378 10^3/uL (150-450); RED BLOOD COUNT 4.59 10^6/uL (4.00-5.40); WHITE BLOOD COUNT 9.1 10^3/uL (4.0-10.0)
[2021-11-11] MEDS ORDERED: NS 1,000 ML IV ONE (13:10)
[2021-11-11] MEDS ORDERED: ONDANSETRON 4MG/2ML VIAL IV ONE (13:10)
[2021-11-11] MEDS ORDERED: MORPHINE 4 MG/ML 1ML VIAL/SYRINGE (J2270) IV PRN (13:10)
[2021-11-11 13:14] LABS: ALBUMIN 3.7 GM/DL (3.2-5.2); ALT/SGPT 41 U/L (12-78); BILIRUBIN,DIRECT 0.2 MG/DL (0.0-0.2); BILIRUBIN,TOTAL 0.9 MG/DL (0.2-1.0); BLOOD UREA NITROGEN 14 MG/DL (7-18); CALCIUM LEVEL 9.1 MG/DL (8.5-10.1); CARBON DIOXIDE LEVEL 29 MEQ/L (21-32); CHLORIDE LEVEL 108 MEQ/L (98-107); CREATININE FOR GFR 0.72 MG/DL (0.55-1.30); GLOMERULAR FILTRATION RATE > 60.0 (>58); GLUCOSE, FASTING 180 MG/DL (70-100); LIPASE 157 U/L (73-393); POTASSIUM SERUM 4.3 MEQ/L (3.5-5.1); SODIUM LEVEL 140 MEQ/L (136-145); TOTAL PROTEIN 7.4 GM/DL (6.4-8.2)
[2021-11-11] MEDS ORDERED: ISOVUE-370 76% 100ML VIAL As Ordered ONE (13:48)
[2021-11-11] MEDS ORDERED: KETOROLAC 30 MG/ML 1ML VIAL IV ONE (15:05)
[2021-11-11 16:32] VITALS: BP 130/81
[2021-11-11] MEDS ORDERED: KETO10TAB PO (16:56)
[2021-11-11] MEDS ORDERED: ONDA4TAB6 PO (16:56)
== END 2021-11-11 17:15 | disposition home or self-care (01) ==
LOC: M ED 11:42
DX: R10.813 Right lower quadrant abdominal tenderness (principal); R11.2 Nausea with vomiting, unspecified; K57.30 Diverticulosis of large intestine without perforation or abscess without bleeding; K21.9 Gastro-esophageal reflux disease without esophagitis; G47.33 Obstructive sleep apnea (adult) (pediatric); M54.50 Low back pain, unspecified; Z91.040 Latex allergy status; Z79.899 Other long term (current) drug therapy
CPT/HCPCS: 74177; 76830; 76856; 80047; 80048; 80076; 81001; 83690; 84702; 85025; 87088; 87186; 87798; 93976; 96361; 96374; 96375; 99284; J1885; J2405; Q9967

== ENCOUNTER 2021-11-27 19:04 | Emergency (ER) | payer OTHER ==
[~2021-11-27] VITALS: Ht 170.2 cm; Wt 97.7 kg
[~2021-11-27 19:04] MED LIST changes: +KETO10TAB PO; +ONDA4TAB6 PO
[2021-11-27] MEDS ORDERED: ASPIRIN 81 MG CHEW TABLET PO ONE (19:55)
[2021-11-27] MEDS ORDERED: MORPHINE 2 MG/ML 1ML VIAL (J2270) IV PRN (19:55)
[2021-11-27 20:23] LABS: BASO # 0.1 10^3/uL (0.0-0.2); BASO % 0.6 % (0.0-1.0); EOS # 0.2 10^3/uL (0.0-0.5); EOS % 1.9 % (0.0-3.0); HEMATOCRIT 39.6 % (36.0-47.0); HEMOGLOBIN 13.3 g/dl (12.0-15.5); LYMPH # 2.4 10^3/uL (1.5-5.0); LYMPH % 30.9 % (24.0-44.0); MEAN CORPUSCULAR HGB CONC 33.6 g/dl (32.0-36.5); MEAN CORPUSCULAR VOLUME 89.4 fl (80.0-96.0); MONO # 0.5 10^3/uL (0.0-0.8); MONO % 6.4 % (2.0-8.0); NEUTROPHILS # 4.7 10^3/uL (1.5-8.5); NEUTROPHILS % 59.8 % (36.0-66.0); PLATELET COUNT, AUTOMATED 440 10^3/uL (150-450); RED BLOOD COUNT 4.43 10^6/uL (4.00-5.40); WHITE BLOOD COUNT 7.8 10^3/uL (4.0-10.0)
[2021-11-27 20:28] LABS: HCG, SERUM QUALITATIVE NEGATIVE (NEGATIVE)
[2021-11-27 20:32] LABS: CK-MB VALUE MASS < 1.0 NG/ML (<3.6); CPK CREATINE PHOSPHOKINASE 81 U/L (26-192); MB/CK RELATIVE INDEX 1.23 (< OR =4)
[2021-11-27 20:37] LABS: ALBUMIN 3.8 GM/DL (3.2-5.2); ALT/SGPT 40 U/L (12-78); BILIRUBIN,DIRECT 0.1 MG/DL (0.0-0.2); BILIRUBIN,TOTAL 0.5 MG/DL (0.2-1.0); BLOOD UREA NITROGEN 14 MG/DL (7-18); CALCIUM LEVEL 9.3 MG/DL (8.5-10.1); CARBON DIOXIDE LEVEL 31 MEQ/L (21-32); CHLORIDE LEVEL 107 MEQ/L (98-107); CREATININE FOR GFR 0.78 MG/DL (0.55-1.30); GLOMERULAR FILTRATION RATE > 60.0 (>58); GLUCOSE, FASTING 153 MG/DL (70-100); LIPASE 170 U/L (73-393); POTASSIUM SERUM 4.1 MEQ/L (3.5-5.1); SODIUM LEVEL 140 MEQ/L (136-145); TOTAL PROTEIN 7.4 GM/DL (6.4-8.2)
[2021-11-27 21:45] LABS: CK-MB VALUE MASS < 1.0 NG/ML (<3.6); CPK CREATINE PHOSPHOKINASE 64 U/L (26-192); MB/CK RELATIVE INDEX 1.56 (< OR =4)
[2021-11-27 22:30] VITALS: BP 135/65
== END 2021-11-27 22:49 | disposition home or self-care (01) ==
LOC: M ED 19:04
DX: R07.89 Other chest pain (principal); R53.83 Other fatigue; R53.1 Weakness; J45.909 Unspecified asthma, uncomplicated; M54.30 Sciatica, unspecified side; Z91.040 Latex allergy status
CPT/HCPCS: 71045; 80047; 80048; 80076; 82550; 82553; 83605; 83690; 84443; 84703; 85025; 85379; 93005; 93041; 94760; 96374; 99285; J2270

== ENCOUNTER 2022-01-15 11:17 | Emergency (ER) | payer OTHER ==
[~2022-01-15] VITALS: Ht 170.2 cm; Wt 96.1 kg
[2022-01-15] MEDS ORDERED: PSEUDOEPHEDRINE 30 MG TAB PO STA (14:56)
[2022-01-15] MEDS ORDERED: LIDOCAINE VISCOUS 2% SOLN 15ML UDC SS ONE (15:00)
[2022-01-15] MEDS ORDERED: LIDO2SOL9 PO (15:04)
[2022-01-15] MEDS ORDERED: PRED20TA PO (15:04)
[2022-01-15] MEDS ORDERED: PSEU120T19 PO (15:04)
[2022-01-15 15:29] VITALS: BP 152/70
== END 2022-01-15 15:32 | disposition home or self-care (01) ==
LOC: M ED 11:17
DX: U07.1 COVID-19 (principal); I10 Essential (primary) hypertension; G47.33 Obstructive sleep apnea (adult) (pediatric); K57.32 Diverticulitis of large intestine without perforation or abscess without bleeding; F41.0 Panic disorder [episodic paroxysmal anxiety]; Z91.040 Latex allergy status; Z79.899 Other long term (current) drug therapy

== ENCOUNTER 2022-10-31 10:23 | Emergency (ER) | payer OTHER ==
[~2022-10-31] VITALS: Ht 170.2 cm; Wt 95.5 kg
[~2022-10-31 10:23] MED LIST changes: +LIDO2SO PO; +PSEU120T19 PO
[2022-10-31] MEDS ORDERED: IBUPROFEN 800 MG TAB PO ONE (12:45)
[2022-10-31] MEDS ORDERED: TRAM50TA2 PO (12:50)
[2022-10-31] MEDS ORDERED: IBUP80TA PO (12:50)
[2022-10-31 12:58] VITALS: BP 142/85
== END 2022-10-31 13:10 | disposition home or self-care (01) ==
LOC: M ED 10:23
DX: M17.12 Unilateral primary osteoarthritis, left knee (principal); M25.562 Pain in left knee; G89.29 Other chronic pain; M54.9 Dorsalgia, unspecified; I10 Essential (primary) hypertension; M51.36 Other intervertebral disc degeneration, lumbar region; J45.909 Unspecified asthma, uncomplicated; M54.30 Sciatica, unspecified side; Z91.040 Latex allergy status; Z91.048 Other nonmedicinal substance allergy status

== ENCOUNTER → 2022-12-06 | Outpatient (CLI) | payer OTHER ==
[~2022-12-06] MED LIST changes: -LIDO2SO PO; +LIDO2SOL9 PO; +TRAM50TA2 PO
== END ==
LOC: M PLAIMG 12:40
PROVIDERS: ATTEND Orthopaedic Surgery Adult Reconstructive Orthopaedic Surgery
DX: M23.92 Unspecified internal derangement of left knee (principal)